=== PATIENT | female | born 1940 | race Caucasian/White ===

== ENCOUNTER 2017-11-15 16:37 | Inpatient (IN) ==
[2017-11-15] MEDS ORDERED: Sod Chloride 0.9% Inj 1,000 ML IV.SIG ONE (18:06)
[2017-11-15] MEDS ORDERED: Morphine Inj 4 MG/ML Vial IV.PUSH ONE ×2 (18:09→21:49)
--- NOTE | 2017-11-15 18:20 | ED ---
HPI General Chief Complaint: Headache Stated Complaint: Dr referred/medical/cancer pt Time Seen by Provider: 11/15/17 18:05 Source: patient and family Mode of arrival: wheelchair Limitations: no limitations History of Present Illness HPI Narrative: 77 yo female here for evaluation of possible cancer pain. Patient reports recent diagnosis of breast cancer in September. Had biopsy and saw Dr Prescott for the first time today. She has bilateral breast cancer. She was given lortab for pain but continues to have pain. Has had bad headaches for 2 weeks on the left side of head as well as pain in chest and body. Per family patient has not been able to sleep well or do anything because of the pain. patient has not had any chemo or radiation at all. No surgeries recently. Per patient and family as Dr Prescott evaluated her today and she was in significant pain she was set here for evaluation of possible metastatsis. She has not had PET scan or other scans yet. Pain is 10/10. Mostly on the head. per family patient has been living on a house without any air conditioning and don't know if this might have something to do with this. No numbness, tingling, weakness. Related Data Home Medications Medication Instructions Recorded Confirmed alprazolam 0.5 mg PO TID PRN 11/15/17 11/15/17 hydrocodone-acetaminophen 1 tab PO Q4-6H PRN 11/15/17 11/15/17 lovastatin 40 mg PO DAILY 11/15/17 11/15/17 pantoprazole 40 mg PO DAILY 11/15/17 11/15/17 triamterene-hydrochlorothiazid 1 tab PO DAILY 11/15/17 11/15/17 Allergies Allergy/AdvReac Type Severity Reaction Status Date / Time Sulfa (Sulfonamide Allergy Intermediate RASH Verified 11/15/17 18:03 Antibiotics) Review of Systems ROS Unobtainable All other systems reviewed negative except as stated in HPI PMFSH History History Provided By: Patient and Family Member Medical History Medical History Anxiety (Acute) Breast cancer (Acute) Hypercholesteremia (Acute) Hypertension (Acute) Ulcer (Acute) Surgical History Surgical History H/O tubal ligation (Acute) History of biopsy (Acute) Hx of cholecystectomy (Acute) Family History Family History Other Family history of diabetes mellitus Social History Social History Substance History: No History of Abuse Smoking Status: Never smoker How Often Do You Have a Drink Containing Alcohol: Never Recent Travel in [facility] within the Last 8 Weeks: No Recent Out of Country Travel within the Last 8 Weeks: No Exam Narrative Exam Narrative: GENERAL: Anorexic but well-appearing otherwise SKIN: Focused skin assessment warm/dry. HEAD: Atraumatic. Normocephalic. EYES: Pupils equal and round 4 mms reactive to light and accommodation. No scleral icterus. No injection or drainage. ENT: No nasal bleeding or discharge. Mucous membranes pink and moist. Tongue is midline. No uvula deviation. NECK: Trachea midline. No JVD. CARDIOVASCULAR: Regular rate and rhythm. No murmur appreciated. RESPIRATORY: No accessory muscle use. Clear to auscultation. Breath sounds equal bilaterally. GASTROINTESTINAL: Abdomen soft, non-tender, nondistended. Hepatic and splenic margins not palpable. MUSCULOSKELETAL: No obvious deformities. No clubbing. No cyanosis. No edema. Full range of motion of the upper and lower extremities bilaterally. 2+ pulses bilaterally. NEUROLOGICAL: Awake and alert. No obvious cranial nerve deficits. Motor grossly within normal limits. Normal speech. PSYCHIATRIC: Appropriate mood and affect; insight and judgment normal. Course Initial Documented Vital Signs Temperature 99.1 F 11/15/17 16:52 Pulse Rate 106 H 11/15/17 16:52 Respiratory Rate 18 11/15/17 16:52 Blood Pressure 150/82 H 11/15/17 16:52 Pulse Oximetry 97 11/15/17 16:52 Last Documented Vital Signs Temperature 99.1 F 11/15/17 16:52 Pulse Rate 92 H 11/16/17 16:02 Respiratory Rate 14 11/16/17 16:02 Blood Pressure 166/72 H 11/16/17 16:02 Pulse Oximetry 96 11/16/17 16:02 Medical Decision Making ALEIDA Attestation ALEIDA supervised visit: Yes MDM Narrative Medical decision making narrative: 77-year-old female that presents to the ED for evaluation of possible cancer pain. Patient was properly examined and was found to have signs and symptoms consistent appears to be a small metastasis of recent breast cancer diagnosis. Labs and imaging were ordered. Patient will start IV pain medications and antiemetics. IV fluids given. Labs and imaging showed subdural hematoma, calcification on the brest. Otherwise unremarcable examination. My attending Dr Law was made aware of findings and agrees with plan. Patient's pain is better. Case discussed with Dr Veliz who wants patient admitted to neurosurgery and consult to him. Dr Multani agrees to admission to his service. Family and patient made aware of findings and agree with plan. Differential Diagnosis Differential Diagnosis: Metastasis versus cancer versus headache versus cephalgia versus cancer pain versus dehydration Medical Records Medical records reviewed: Yes I reviewed the patient's medical records. Lab Data Lab results reviewed: Yes I reviewed the patient's lab results. Lab results narrative: troponin and CKMB WNL lactic acid WNL Result diagrams: 11/16/17 03:57 11/16/17 03:57 Lab Results 11/15/17 11/15/17 11/15/17 Range/Units 18:30 18:35 18:35 WBC 12.5 H (4.0-11.0) th/mm3 RBC 5.03 (4.00-5.30) mil/mm3 Hgb 14.8 (11.6-15.3) gm/dL Hct 44.0 (35.0-46.0) % MCV 87.5 (80.0-100.0) fL MCH 29.5 (27.0-34.0) pg MCHC 33.7 (32.0-36.0) % RDW 13.0 (11.6-17.2) % Plt Count 229 (150-450) th/mm3 MPV 8.4 (7.0-11.0) fL Neut % (Auto) 70.0 (16.0-70.0) % Lymph % (Auto) 19.1 (9.0-44.0) % Norman % (Auto) 9.6 H (0.0-8.0) % Eos % (Auto) 1.0 (0.0-4.0) % Baso % (Auto) 0.3 (0.0-2.0) % Neut # (Auto) 8.8 H (1.8-7.7) th/mm3 Lymph # (Auto) 2.4 (1.0-4.8) th/mm3 Norman # (Auto) 1.2 H (0.0-0.9) th/mm3 Eos # (Auto) 0.1 (0.0-0.4) th/mm3 Baso # (Auto) 0.0 (0.0-0.2) th/mm3 WBC Differential . Differential Comment Auto diff final PT 10.6 (9.8-11.6) sec INR 1.0 Ratio APTT 27.2 (24.3-30.1) sec Sodium (136-145) meq/L Potassium (3.5-5.1) meq/L Chloride (98-107) meq/L Carbon Dioxide (21.0-32.0) meq/L Anion Gap (5-15) meq/L BUN (7-18) mg/dL Creatinine (0.50-1.00) mg/dL Estimated GFR (>89) mL/min Random Glucose (74-106) mg/dL Lactic Acid 1.3 (0.4-2.0) mmol/L Calcium (8.5-10.1) mg/dL Total Bilirubin (0.2-1.0) mg/dL AST (15-37) U/L ALT (10-53) U/L Alkaline Phosphatase (45-117) U/L Total Protein (6.4-8.2) g/dL Albumin (3.4-5.0) g/dL Lipase (73-393) U/L Urine Color (Yellw/Straw) Urine Clarity (Clear) Urine pH (5.0-8.5) Ur Specific Bishop (1.002-1.035) Urine Protein (Neg-Trace) mg/dL Urine Glucose (UA) (Negative) mg/dL Urine Ketones (Negative) mg/dL Urine Occult Blood (Negative) Urine Nitrate (Negative) Urine Bilirubin (Negative) Urine Urobilinogen (Less than 2) mg/dL Ur Leukocyte Esterase (Negative) Urine RBC (0-3) /hpf Urine WBC (0-5) /hpf Ur Squamous Epith Cells (0-5) /hpf Micro UA Comment Urine Culture Comments 11/15/17 11/15/17 11/16/17 Range/Units 18:35 18:52 03:57 WBC 10.6 (4.0-11.0) th/mm3 RBC 4.39 (4.00-5.30) mil/mm3 Hgb 13.2 (11.6-15.3) gm/dL Hct 38.3 (35.0-46.0) % MCV 87.3 (80.0-100.0) fL MCH 30.1 (27.0-34.0) pg MCHC 34.5 (32.0-36.0) % RDW 13.0 (11.6-17.2) % Plt Count 198 (150-450) th/mm3 MPV 8.2 (7.0-11.0) fL Neut % (Auto) 63.3 (16.0-70.0) % Lymph % (Auto) 24.4 (9.0-44.0) % Norman % (Auto) 10.4 H (0.0-8.0) % Eos % (Auto) 1.4 (0.0-4.0) % Baso % (Auto) 0.5 (0.0-2.0) % Neut # (Auto) 6.7 (1.8-7.7) th/mm3 Lymph # (Auto) 2.6 (1.0-4.8) th/mm3 Norman # (Auto) 1.1 H (0.0-0.9) th/mm3 Eos # (Auto) 0.1 (0.0-0.4) th/mm3 Baso # (Auto) 0.1 (0.0-0.2) th/mm3 WBC Differential . Differential Comment Auto diff final PT (9.8-11.6) sec INR Ratio APTT (24.3-30.1) sec Sodium 133 L (136-145) meq/L Potassium 3.4 L (3.5-5.1) meq/L Chloride 93 L (98-107) meq/L Carbon Dioxide 28.0 (21.0-32.0) meq/L Anion Gap 12 (5-15) meq/L BUN 8 (7-18) mg/dL Creatinine 0.84 (0.50-1.00) mg/dL Estimated GFR 66 L (>89) mL/min Random Glucose 112 H (74-106) mg/dL Lactic Acid (0.4-2.0) mmol/L Calcium 9.9 (8.5-10.1) mg/dL Total Bilirubin 1.1 H (0.2-1.0) mg/dL AST 17 (15-37) U/L ALT 22 (10-53) U/L Alkaline Phosphatase 104 (45-117) U/L Total Protein 7.8 (6.4-8.2) g/dL Albumin 3.7 (3.4-5.0) g/dL Lipase 51 L (73-393) U/L Urine Color Straw (Yellw/Straw) Urine Clarity Clear (Clear) Urine pH 8.0 (5.0-8.5) Ur Specific Bishop 1.003 (1.002-1.035) Urine Protein Negative (Neg-Trace) mg/dL Urine Glucose (UA) Negative (Negative) mg/dL Urine Ketones Negative (Negative) mg/dL Urine Occult Blood Small H (Negative) Urine Nitrate Negative (Negative) Urine Bilirubin Negative (Negative) Urine Urobilinogen Less than 2 (Less than 2) mg/dL Ur Leukocyte Esterase Trace H (Negative) Urine RBC 1 (0-3) /hpf Urine WBC 3 (0-5) /hpf Ur Squamous Epith Cells <1 (0-5) /hpf Micro UA Comment Culture not ind Urine Culture Comments Culture not ind 11/16/17 11/16/17 Range/Units 03:57 03:57 WBC (4.0-11.0) th/mm3 RBC (4.00-5.30) mil/mm3 Hgb (11.6-15.3) gm/dL Hct (35.0-46.0) % MCV (80.0-100.0) fL MCH (27.0-34.0) pg MCHC (32.0-36.0) % RDW (11.6-17.2) % Plt Count (150-450) th/mm3 MPV (7.0-11.0) fL Neut % (Auto) (16.0-70.0) % Lymph % (Auto) (9.0-44.0) % Norman % (Auto) (0.0-8.0) % Eos % (Auto) (0.0-4.0) % Baso % (Auto) (0.0-2.0) % Neut # (Auto) (1.8-7.7) th/mm3 Lymph # (Auto) (1.0-4.8) th/mm3 Norman # (Auto) (0.0-0.9) th/mm3 Eos # (Auto) (0.0-0.4) th/mm3 Baso # (Auto) (0.0-0.2) th/mm3 WBC Differential Differential Comment PT 10.7 (9.8-11.6) sec INR 1.1 Ratio APTT 27.4 (24.3-30.1) sec Sodium 135 L (136-145) meq/L Potassium 3.5 (3.5-5.1) meq/L Chloride 99 (98-107) meq/L Carbon Dioxide 26.5 (21.0-32.0) meq/L Anion Gap 10 (5-15) meq/L BUN 8 (7-18) mg/dL Creatinine 0.71 (0.50-1.00) mg/dL Estimated GFR 80 L (>89) mL/min Random Glucose 98 (74-106) mg/dL Lactic Acid (0.4-2.0) mmol/L Calcium 8.3 L D (8.5-10.1) mg/dL Total Bilirubin 0.9 (0.2-1.0) mg/dL AST 16 (15-37) U/L ALT 22 (10-53) U/L Alkaline Phosphatase 89 (45-117) U/L Total Protein 6.6 D (6.4-8.2) g/dL Albumin 3.3 L (3.4-5.0) g/dL Lipase (73-393) U/L Urine Color (Yellw/Straw) Urine Clarity (Clear) Urine pH (5.0-8.5) Ur Specific Bishop (1.002-1.035) Urine Protein (Neg-Trace) mg/dL Urine Glucose (UA) (Negative) mg/dL Urine Ketones (Negative) mg/dL Urine Occult Blood (Negative) Urine Nitrate (Negative) Urine Bilirubin (Negative) Urine Urobilinogen (Less than 2) mg/dL Ur Leukocyte Esterase (Negative) Urine RBC (0-3) /hpf Urine WBC (0-5) /hpf Ur Squamous Epith Cells (0-5) /hpf Micro UA Comment Urine Culture Comments Imaging Data Attestation: I personally reviewed and interpreted this imaging study as follows : Radiologist's impression: Abdomen/Pelvis CT 11/15/17 18:06 CONCLUSION: 1. No acute abnormality is identified within the abdomen or pelvis. 2. Nonacute findings include small hiatal hernia, sigmoid diverticulosis, hepatic steatosis, and severe atherosclerotic disease. Chest CT 11/15/17 18:06 CONCLUSION: 1. No acute finding is identified to explain the patient's chest pain. There is moderate atherosclerotic disease of the aorta. 2. There is an asymmetric nodular area in the outer right breast measuring approximately 11 mm. Patient has not had a recent mammogram at one of our facilities according to our records. Suggest further evaluation with outpatient diagnostic mammogram and ultrasound for further evaluation. 3. Please refer to abdomen and pelvis CT report for description of the supradiaphragmatic findings. Head CT 11/15/17 18:06 CONCLUSION: 1. There is a small acute left frontal subdural hematoma measuring 4 mm in thickness with acute blood products along the anterior falx cerebri. No midline shift or herniation is present. No skull fracture is visualized. 2. The remaining brain findings are chronic including mild generalized atrophy and mild periventricular white matter low-attenuation. Cervical Spine CT 11/15/17 18:12 CONCLUSION: 1. Multilevel degenerative disc disease without an acute cervical spine abnormality identified. 2. There is moderate left neural foraminal stenosis at C3-C4. Head CT 11/16/17 05:00 CONCLUSION: 1. Left-sided subdural hemorrhage is unchanged. 2. No midline shift or mass effect. ECG Data EKG Prior to Arrival: No Discharge Plan Discharge Disposition Patient Disposition: 30 Still Patient Discharge Condition Condition: Good Discharge Order Discharge Orders: Discharge Order (Routine); Ordered 11/16/17 Ordered By: Ilir Castle Discharge Details Anticipated Discharge Date: 11/16/17 Diagnosis: Acute subdural hematoma, Breast cancer Physicians Team ED Provider: Miguel Law ED Midlevel Provider: Ubaldo Abdi Primary Care Provider: Onofre Gimenez Attending Provider: Naren Multani Other Providers: Jeremias Veliz ; [employer] Status ED Status: Left Department Discharge Information Discharge Date/Time: 11/16/17 16:00
[2017-11-15 19:08] LABS: Baso % (Auto) 0.3 % (0.0-2.0); Eos # (Auto) 0.1 th/mm3 (0.0-0.4); Hemoglobin 14.8 gm/dL (11.6-15.3); Lymph # (Auto) 2.4 th/mm3 (1.0-4.8); Lymph % (Auto) 19.1 % (9.0-44.0); Mean Corpuscular HGB Conc 33.7 % (32.0-36.0); Mean Corpuscular Hemoglobin 29.5 pg (27.0-34.0); Mean Corpuscular Volume 87.5 fL (80.0-100.0); Mean Platelet Volume 8.4 fL (7.0-11.0); Mono # (Auto) 1.2 th/mm3 (0.0-0.9); Mono % (Auto) 9.6 % (0.0-8.0); Neut # (Auto) 8.8 th/mm3 (1.8-7.7); Platelet Count 229 th/mm3 (150-450); Red Blood Count 5.03 mil/mm3 (4.00-5.30); White Blood Count 12.5 th/mm3 (4.0-11.0)
[2017-11-15 19:13] LABS: Alanine Aminotransferase 22 U/L (10-53); Albumin 3.7 g/dL (3.4-5.0); Anion Gap 12 meq/L (5-15); Aspartate Aminotransferase 17 U/L (15-37); Blood Urea Nitrogen 8 mg/dL (7-18); Calcium 9.9 mg/dL (8.5-10.1); Chloride 93 meq/L (98-107); Glomerular Filtration Rate 66 mL/min (>89); Glucose,Random 112 mg/dL (74-106); Lipase 51 U/L (73-393); Potassium 3.4 meq/L (3.5-5.1); Sodium 133 meq/L (136-145)
[2017-11-15 19:16] LABS: Alkaline Phosphatase 104 U/L (45-117); Total Protein 7.8 g/dL (6.4-8.2)
[2017-11-15 19:27] LABS: Activated Partial Thrombo Time 27.2 sec (24.3-30.1); Prothrombin Time 10.6 sec (9.8-11.6)
[2017-11-15 19:33] LABS: Bilirubin,Urine Negative (Negative); Clarity,Urine Clear (Clear); Color,Urine Straw (Yellw/Straw); Glucose,Urine (UA) Negative (Negative); Leukocyte Esterase,Urine Trace (Negative); Nitrite,Urine Negative (Negative); Specific Gravity,Urine 1.003 (1.002-1.035); Squamous Epithelial Cell,Urine <1 /hpf (0-5)
--- NOTE | 2017-11-15 19:52 | CT ---
EXAM DATE: 11/15/2017 7:40 PM EDT AGE/SEX: 77 years / Female INDICATIONS: Cephalgia. CLINICAL DATA: This is the patient's initial encounter. Patient reports that signs and symptoms have been present for 1 day and indicates a pain score of 10/10. MEDICAL/SURGICAL HISTORY: Carcinoma, breast. Hypertension. None. RADIATION DOSE: 56.35 CTDI (mGy) COMPARISON: [facility], CT BRAIN W/O CONTRAST, 04/28/2015. . TECHNIQUE: CT of the head without contrast. Using automated exposure control and adjustment of the mA and/or kV according to patient size, radiation dose was kept as low as reasonably achievable to ob tain optimal diagnostic quality images. DICOM format image data is available electronically for revi ew and comparison. FINDINGS: Cerebrum: There is mild generalized atrophy and ventricles are normal given the degree of atrophy. M ild periventricular white matter change is present. There is extra-axial high density collection in the left frontal region measuring up to 4 mm in maximal thickness and along the anterior falx cerebri measuring approximately 4 mm. There is no midline shift or herniation. No mass lesion or signs of ac [place] infarct are identified. Posterior Fossa: The cerebellum and brainstem demonstrate no acute abnormality. The 4th ventricle is midline. The cerebellopontine angle is within normal limits. Extracranial: The visualized sinuses are clear. Skull: The calvaria is intact. No skull fracture. CONCLUSION: 1. There is a small acute left frontal subdural hematoma measuring 4 mm in thickness with acute bloo d products along the anterior falx cerebri. No midline shift or herniation is present. No skull fract ure is visualized. 2. The remaining brain findings are chronic including mild generalized atrophy and mild periventricu lar white matter low-attenuation. Electronically signed by: Isidoro Anderson MD 11/15/2017 7:50 PM EDT
--- NOTE | 2017-11-15 19:59 | CT ---
EXAM DATE: 11/15/2017 7:42 PM EDT AGE/SEX: 77 years / Female INDICATIONS: Cervalgia. CLINICAL DATA: This is the patient's initial encounter. Patient reports that signs and symptoms have been present for 1 day and indicates a pain score of 8/10. MEDICAL/SURGICAL HISTORY: Carcinoma, breast. Hypertension. None. RADIATION DOSE: 16.35 CTDI (mGy) COMPARISON: [facility], MRI CERVICAL SPINE W/O CONTRAST, 02/15/2011. . TECHNIQUE: Contiguous axial images were obtained using helical multirow detector technique. The vol umetric data was post-processed with multiplanar reconstruction in oblique axial, sagittal, and coron al planes. Using automated exposure control and adjustment of the mA and/or kV according to patient s ize, radiation dose was kept as low as reasonably achievable to obtain optimal diagnostic quality lyly ges. DICOM format image data is available electronically for review and comparison. FINDINGS: Vertebrae: No fracture is identified. Vertebral body height is maintained. Alignment: No anterolisthesis or retrolisthesis. The craniocervical junction and C1-C2 level demonstrate no significant abnormality. C2-C3: There is mild left facet arthrosis. No significant canal stenosis or neural foraminal narrowi ng is visualized. C3-C4: There is decreased disc height with endplate osteophytes anteriorly and posterior disc osteop hyte complex with small left uncovertebral osteophyte. Left facet arthrosis is present. There is no s chemo canal stenosis. There is moderate left neural foraminal narrowing. This appears mildly increase d from the prior study. C4-C5: Decreased disc height with endplate osteophytes anteriorly. There is a posterior disc osteoph yte complex centrally which may mildly narrow the spinal canal. No significant neural foraminal steno sis is present. C5-C6: Decreased disc height with endplate osteophytes anteriorly and diffuse posterior disc osteoph yte complex. No spinal canal stenosis is present. There is mild neural foraminal narrowing bilaterall y. C6-C7: Decreased disc height with endplate osteophytes anteriorly and posterior disc osteophyte comp cass. No spinal canal stenosis or definite neural foraminal narrowing is seen. C7-T1: There is left facet arthrosis. No disc herniation, canal stenosis, or neural foraminal narrow ing is identified. Other: The visualized surrounding structures demonstrate no acute abnormality. CONCLUSION: 1. Multilevel degenerative disc disease without an acute cervical spine abnormality identified. 2. There is moderate left neural foraminal stenosis at C3-C4. Electronically signed by: Isidoro Anderson MD 11/15/2017 7:58 PM EDT
--- NOTE | 2017-11-15 20:05 | CT ---
EXAM DATE: 11/15/2017 7:47 PM EDT AGE/SEX: 77 years / Female INDICATIONS: Chest pain. CLINICAL DATA: This is the patient's initial encounter. Patient reports that signs and symptoms have been present for 1 day and indicates a pain score of 7/10. MEDICAL/SURGICAL HISTORY: Carcinoma, breast. Hypertension. Ulcers. Cholecystectomy. Tubal ligati on. RADIATION DOSE: 5.37 CTDI (mGy) ; Combined studies COMPARISON: No prior exams available for comparison. TECHNIQUE: Multiple contiguous axial images were obtained through the chest during bolus infusion of 95 ml Omnipaque 350 (iohexol) nonionic water-soluble contrast as a cumulative dose for multiple exa ms. Images were obtained in suspended respiration using multiple row detector helical technique. U sing automated exposure control and adjustment of the mA and/or kV according to patient size, radiati on dose was kept as low as reasonably achievable to obtain optimal diagnostic quality images. DICOM format image data is available electronically for review and comparison. FINDINGS: Lungs: No consolidation or pneumothorax. No concerning pulmonary nodule is identified. There is a c alcified granuloma in the left lower lobe. Dependent atelectasis is present bilaterally. Mediastinum: The heart and great vessels demonstrate no acute abnormality. No lymphadenopathy is id entified. There are nonenlarged calcified left hilar lymph nodes. Mild to moderate atherosclerotic di sease is present within the aorta. Pleurae: No pleural effusion or pleural thickening. Axillae: No lymphadenopathy. Musculoskeletal: The bones and soft tissues demonstrate no acute abnormality. There are degenerativ e changes of the thoracic spine. Other: There is an asymmetric nodular area in the outer right breast measuring approximately 11 mm. Please refer to abdomen and pelvis CT report for description of the subdiaphragmatic findings. CONCLUSION: 1. No acute finding is identified to explain the patient's chest pain. There is moderate atheroscler otic disease of the aorta. 2. There is an asymmetric nodular area in the outer right breast measuring approximately 11 mm. Sharri ent has not had a recent mammogram at one of our facilities according to our records. Suggest further evaluation with outpatient diagnostic mammogram and ultrasound for further evaluation. 3. Please refer to abdomen and pelvis CT report for description of the supradiaphragmatic findings. Electronically signed by: Isidoro Anderson MD 11/15/2017 8:03 PM EDT
--- NOTE | 2017-11-15 20:09 | CT ---
EXAM DATE: 11/15/2017 7:47 PM EDT AGE/SEX: 77 years / Female INDICATIONS: Abdominal pain. CLINICAL DATA: This is the patient's initial encounter. Patient reports that signs and symptoms have been present for 1 day and indicates a pain score of 5/10. MEDICAL/SURGICAL HISTORY: Carcinoma, breast. Hypertension. Ulcers. Cholecystectomy. Tubal li gation. ORAL CONTRAST: No oral contrast ingested. RADIATION DOSE: 5.37 CTDI (mGy) ; Combined studies COMPARISON: No prior exams available for comparison. TECHNIQUE: Multiple contiguous axial images were obtained through the abdomen and pelvis following b olus infusion of 95 ml Omnipaque 350 (iohexol) nonionic water-soluble contrast as a cumulative dose for multiple exams. No oral contrast ingested. Using automated exposure control and adjustment of t he mA and/or kV according to patient size, radiation dose was kept as low as reasonably achievable to obtain optimal diagnostic quality images. DICOM format image data is available electronically for r eview and comparison. FINDINGS: Lower chest: Please refer to chest CT report for description of the supradiaphragmatic findings. Hepatobiliary: Liver density is decreased. No focal lesion is seen. Gallbladder is absent with clips in the gallbladder fossa. There is no bile duct dilatation. Kidneys: No hydronephrosis, stone, or mass. Adrenal Glands: Within normal limits. Spleen: Within normal limits. Pancreas: Within normal limits. Vascular: The aorta is nonaneurysmal. There is severe atherosclerotic disease. Bowel/Mesentery: A small hiatal hernia is present. Small bowel demonstrates no abnormality. Terminal ileum is normal. There is sigmoid diverticulosis. No inflammatory changes are present. There is no fr ee air or free fluid. Abdominal Wall: No hernia is visualized. Retroperitoneum: No lymphadenopathy. Bladder: No wall thickening or mass. Reproductive: Within normal limits. Inguinal: No lymphadenopathy or hernia. Musculoskeletal: No acute osseous abnormality is identified. There are degenerative changes of the kerrie mbar spine. CONCLUSION: 1. No acute abnormality is identified within the abdomen or pelvis. 2. Nonacute findings include small hiatal hernia, sigmoid diverticulosis, hepatic steatosis, and sev ere atherosclerotic disease. Electronically signed by: Isidoro Anderson MD 11/15/2017 8:07 PM EDT
--- NOTE | 2017-11-15 20:44 | P.CONNS ---
History of Present Illness Service: neurosurgery Consult date: 11/15/17 Requesting Physician: Naren Multani Reason for Consult: TBI, subdural hematoma Primary Care Provider: Onofre Gimenez MD Family Provider: Onofre Gimenez MD History of Present Illness: This is a 77 year old female with history of breast cancer who suffered a fall , when she tripped over a toy and hit her head. No LOC. No seizure activity reported. No tongue biting. No incontinence of stool or urine. She has been having headache since then. today presented to ER with headache and found to have small subdural hematoma without midline shift. denies N/V. denies anticoagulant use. ROS otherwise negative except for headache. no dizziness, syncope, light-headedness, weakness, numbness, loss of bowel or bladder control. Neurosurgical consultation was requested Review of Systems Constitutional: Denies anorexia, Denies body ache(s), Denies chills, Denies daytime sleepiness, Denies excessive sweating, Denies fatigue, Denies fever(s), Denies headache(s), Denies increased appetite, Denies lack of energy, Denies malaise, Denies night sweats, Denies weakness, Denies weight gain, Denies weight loss, Denies other Eyes: Denies blind spots, Denies blurry vision, Denies bulging eyes, Denies change in vision, Denies double vision, Denies discharge, Denies dry eyes, Denies floaters, Denies irritation, Denies itchy eyes, Denies loss of vision, Denies pain, Denies requires corrective lenses, Denies sensitivity to light, Denies other Ears, Nose, Mouth, and Throat: Denies abnormal hearing, Denies bleeding gums, Denies bad breath, Denies change in voice, Denies dental pain, Denies difficulty swallowing, Denies dizziness, Denies dry mouth, Denies ear discharge , Denies ear pain, Denies facial pain, Denies headache(s), Denies hearing loss, Denies hoarseness, Denies lip swelling, Denies nosebleed, Denies mouth lesions, Denies mouth pain, Denies nasal congestion, Denies nasal discharge, Denies nasal obstruction, Denies nasal trauma, Denies neck lump, Denies neck pain, Denies nose pain, Denies pain with swallowing, Denies poor balance, Denies post nasal drip, Denies ringing in the ears, Denies sinus pain, Denies sinus pressure , Denies sore throat, Denies throat swelling, Denies tongue swelling, Denies other Cardiovascular: Denies chest pain, Denies chest pain at rest, Denies chest pain with activity, Denies excessive sweating, Denies fainting, Denies fast heart rate, Denies foot swelling, Denies generalized swelling, Denies irregular heart rhythm, Denies leg pain with activity, Denies leg sores, Denies leg swelling, Denies lightheadedness, Denies radiating jaw, neck or arm pain, Denies rapid, pounding, or irregular heartbeat, Denies shortness of breath, Denies shortness of breath with activity, Denies shortness of breath when lying down, Denies shortness of breath causing sudden awakening, Denies slow heart rate, Denies other Respiratory: Denies change in phlegm color, Denies chest congestion, Denies cough, Denies coughing up blood, Denies excessive phlegm production, Denies pain on inspiration, Denies pain with cough, Denies shortness of breath, Denies shortness of breath with activity, Denies snoring, Denies stridor, Denies wheezing, Denies other Gastrointestinal: Denies abdominal pain, Denies belching, Denies black, tarry stools, Denies bloating, Denies bright, red blood in stools, Denies change in bowel habits, Denies constant urge to pass stool, Denies change in stools, Denies coffee ground vomit, Denies constipation, Denies cramping, Denies difficulty swallowing, Denies excessive passing of gas, Denies feeling full early, Denies heartburn, Denies incontinent of stools, Denies loose stools, Denies nausea, Denies pain with swallowing, Denies vomiting, Denies vomiting blood, Denies other Genitourinary: Denies abnormal periods, Denies abnormal vaginal bleeding, Denies absent period, Denies bleeding between periods, Denies blood in urine, Denies difficulty starting urination, Denies difficulty urinating, Denies dribbling after urination, Denies frequent nighttime urination, Denies genital itching, Denies genital lesions, Denies heavy periods, Denies hot flashes, Denies light periods, Denies nipple discharge, Denies painful intercourse, Denies painful periods, Denies painful urination, Denies pelvic pain, Denies prolapse symptoms, Denies sexual problems, Denies side pain, Denies urinary incontinence, Denies urinary urgency, Denies vaginal discharge, Denies vaginal dryness, Denies vaginal odor, Denies vaginal itching, Denies other Musculoskeletal: Denies abnormal walking, Denies back pain, Denies body aches, Denies decreased muscle mass, Denies deformity, Denies joint pain, Denies joint swelling, Denies limited joint movement, Denies loss of height, Denies muscle cramps, Denies muscle weakness, Denies neck pain, Denies numbness, Denies radiating pain into limb, Denies stiffness, Denies tingling, Denies other Skin/Breast: Denies acne, Denies bleeding lesions, Denies boil, Denies breast swelling, Denies breast skin changes, Denies breast pain, Denies breast lump, Denies change in breast shape, Denies change in hair, Denies change in skin color, Denies changing lesions, Denies dry skin, Denies excessive hair growth, Denies hair loss, Denies itching, Denies lesions, Denies nail changes, Denies new lesions, Denies nipple discharge, Denies non-healing lesions, Denies redness , Denies sensitivity to light, Denies rash, Denies skin pain, Denies skin ulcer , Denies sores, Denies stretch villar, Denies unusual bruising, Denies wounds, Denies yellowing of the skin, Denies other Neurologic: Denies abnormal hearing, Denies abnormal movements, Denies abnormal speech, Denies abnormal walking, Denies behavioral changes, Denies burning sensations, Denies confusion, Denies dizziness, Denies fainting, Denies frequent falls, Denies headache(s), Denies lack of coordination, Denies localized weakness, Denies loss of vision, Denies memory loss, Denies numbness, Denies other visual disturbances, Denies radiating pain, Denies restless legs, Denies convulsions, Denies seizure-like activity, Denies sensory deficit, Denies tingling, Denies tingling/numbness/burning sensations, Denies tremor(s), Denies unsteadiness, Denies weakness, Denies other Psychiatric: Denies abnormal sleep pattern, Denies anxiety, Denies behavioral changes, Denies change in appetite, Denies change in sex drive, Denies confusion , Denies depression, Denies difficulty concentrating, Denies hearing things others do not hear, Denies hopelessness, Denies irritability, Denies lack of enjoyment, Denies memory loss, Denies mood swings, Denies panic attacks, Denies paranoia, Denies seeing things others do not see, Denies sensing things others do not sense, Denies tactile hallucinations, Denies thoughts of hurting/killing others, Denies thoughts of hurting/killing yourself, Denies other Endocrine: Denies cold intolerance, Denies excessive sweating, Denies flushing, Denies heat intolerance, Denies increased hunger, Denies increased thirst, Denies increased urination, Denies rapid, pounding, or irregular heartbeat, Denies other Hematologic/Lymphatic: Denies easy bleeding, Denies easy bruising, Denies enlarged lymph nodes, Denies other Allergic/Immunologic: Denies GI upset with certain foods, Denies hives, Denies itchy eyes, Denies lip swelling, Denies seasonal runny nose, Denies throat swelling, Denies tongue swelling, Denies wheezing, Denies other PMFSH - History History Provided By: Patient, Family Member - Medical History Medical History: Medical History (Last Reviewed 11/17/17 @ 16:43 by Jeremias Veliz MD) Anxiety Breast cancer Hypercholesteremia Hypertension Ulcer - Surgical History Surgical History: Surgical History (Last Reviewed 11/17/17 @ 16:44 by Jeremias Veliz MD) History of biopsy H/O tubal ligation Hx of cholecystectomy - Family History Family History: Family History (Last Updated 11/17/17 @ 16:45 by Jeremias Veliz MD) Other Family history of diabetes mellitus - Tobacco History Smoking Status: Never smoker - Alcohol History How Often Do You Have a Drink Containing Alcohol: Never - Substance Use History Substance History: No History of Abuse - Travel History Recent Travel in the [facility] [[email or web address] Within the Last 8 Weeks: No Recent Travel Out of the Country Within the Last 8 Weeks: No - Immunization History Tetanus Immunization: Unsure Hx Influenza Vaccine This Season: Yes Medications and Allergies Allergies Allergy/AdvReac Type Severity Reaction Status Date / Time Sulfa (Sulfonamide Allergy Intermediate RASH Verified 11/15/17 18:03 Antibiotics) Home Medications Medication Instructions Recorded Confirmed Type alprazolam 0.5 mg PO TID PRN 11/15/17 11/15/17 History hydrocodone-acetaminophen 1 tab PO Q4-6H PRN 11/15/17 11/15/17 History lovastatin 40 mg PO DAILY 11/15/17 11/15/17 History pantoprazole 40 mg PO DAILY 11/15/17 11/15/17 History triamterene-hydrochlorothiazid 1 tab PO DAILY 11/15/17 11/15/17 History Exam Vital signs: Vital Signs 11/15/17 16:52 11/15/17 18:03 11/15/17 18:11 Temperature 99.1 F Pulse Rate 106 H 99 H 100 H Respiratory Rate 18 Blood Pressure 150/82 H 164/80 H 164/80 H Pulse Oximetry 97 98 95 11/15/17 18:52 Temperature Pulse Rate Respiratory Rate 16 Blood Pressure Pulse Oximetry Intake & Output 11/15/17 11/15/17 11/16/17 06:59 18:59 06:59 Weight 68.039 kg Narrative: The patient is alert, awake and oriented to time, place and person. Speech is fluent. Cranial nerve examination demonstrates the pupils to be equal, round, and reactive to light. Extra-ocular movements are intact with normal convergence. Facial motor and sensory function are normal and symmetrical. Gross hearing is intact, bilaterally, to finger rub. The uvula is midline and elevates symmetrically with the soft palate. Sternocleidomastoid and deltoid muscles have normal and symmetrical strength. Other cranial nerves are intact. Neck is soft and supple. Cervical spine has a full range of motion in anterior flexion, extension, lateral bending, and rotation without pain. There is no tenderness to palpation to the spinous processes or paraspinal muscles.. Muscle testing reveals normal bulk and tone overall without rigidity, spasticity , fasciculations, or atrophy. Muscle strength is 5/5 in all muscle groups of both upper extremities including deltoid, biceps, triceps, brachioradialis, wrist extension and maintenance mechanic technician. In the lower extremities, strength is 5/5 in both iliopsoas, quadriceps, hamstrings, plantar flexion, dorsiflexion, and extensor hallicus longus. Sensory examination is intact to light touch and sharp/dull discrimination in both the upper and lower extremities, symmetrically. Deep tendon reflexes are 2+ and symmetrical in the biceps, triceps, and brachioradialis, bilaterally, in the upper extremities. In the lower extremities , the patellar and Achilles are 2+, bilaterally. There is a bilateral plantar flexion response. Hoffmanns sign is negative. There is no clonus or other abnormal reflexes noted. Cerebellar examination is intact to [id number] test, rapid rhythmic alternating motion. No dysmetria, dysdiadochokinesia, truncal ataxia, or tremor noted. Lungs: clear Heart. Regular rhythm and rate Skin: warm and dry Results - Laboratory Findings CBC and BMP: 11/16/17 03:57 11/16/17 03:57 Abnormal lab findings: Abnormal Labs 11/15/17 11/15/17 11/15/17 18:35 18:35 18:52 WBC 12.5 H [place] % (Auto) 9.6 H Neut # (Auto) 8.8 H [place] # (Auto) 1.2 H Sodium 133 L Potassium 3.4 L Chloride 93 L Estimated GFR 66 L Random Glucose 112 H Total Bilirubin 1.1 H Lipase 51 L Urine Occult Blood Small H Ur Leukocyte Esterase Trace H Assessment and Plan - Plan Assessment: 77yF with traumatic intracranial hemorrhage without midline shift I reviewed her clinical and radiological studies including Abdomen/Pelvis CT 11/15/17 18:06 CONCLUSION: 1. No acute abnormality is identified within the abdomen or pelvis. 2. Nonacute findings include small hiatal hernia, sigmoid diverticulosis, hepatic steatosis, and severe atherosclerotic disease. Chest CT 11/15/17 18:06 CONCLUSION: 1. No acute finding is identified to explain the patient's chest pain. There is moderate atherosclerotic disease of the aorta. 2. There is an asymmetric nodular area in the outer right breast measuring approximately 11 mm. Patient has not had a recent mammogram at one of our facilities according to our records. Suggest further evaluation with outpatient diagnostic mammogram and ultrasound for further evaluation. 3. Please refer to abdomen and pelvis CT report for description of the supradiaphragmatic findings. Head CT 11/15/17 18:06 CONCLUSION: 1. There is a small acute left frontal subdural hematoma measuring 4 mm in thickness with acute blood products along the anterior falx cerebri. No midline shift or herniation is present. No skull fracture is visualized. 2. The remaining brain findings are chronic including mild generalized atrophy and mild periventricular white matter low-attenuation. Cervical Spine CT 11/15/17 18:12 CONCLUSION: 1. Multilevel degenerative disc disease without an acute cervical spine abnormality identified. 2. There is moderate left neural foraminal stenosis at C3-C4. Neuro. neuro checks in a serial fashion. Follow up Ct brain in [facility] Pulmonary. aggressive pulmonary toilette, nasotracheal suction, and breathing treatments with nebulizers. Daily PT and OT Renal. Continue to monitor closely urine output, BUN and creatinine Endocrine. Continue to Monitor serial Acu checks and SSI as needed in detail ID continue to monitor for signs of infection Continue Protonix for stress ulcer prophylaxis Continue Chacho hose and SCD's for DVT prophylaxis Further recommendations will be provided depending on the patient's clinical evaluation and follow up studies. Caprini VTE Risk Assessment Caprini VTE Risk Assessment: Moderate/High Risk (score >= 2) VTE Pharmacological Exception Reason: Intracranial lesions Caprini Risk Assessment Model: Point Value = 1 Point Value = 2 Point Value = 3 Point Value = 5 Age 41-60 Minor surgery BMI > 25 kg/m2 Swollen legs Varicose veins or History of unexplained or recurrent spontaneous Oral contraceptives or hormone replacement Sepsis (< 1 month) Serious lung disease, including pneumonia (< 1 month) Abnormal pulmonary function Acute myocardial infarction Congestive heart failure (< 1 month) History of inflammatory bowel disease Medical patient at bed rest Age 61-74 Arthroscopic surgery Major open surgery (> 45 min) Laparoscopic surgery (> 45 min) Malignancy Confined to bed (> 72 hours) Immobilizing plaster cast Central venous access Age >= 75 History of VTE Family history of VTE Factor V Leiden Prothrombin [id number] Lupus anticoagulant Anticardiolipin antibodies Elevated serum homocysteine Heparin-induced thrombocytopenia Other congenital or acquired thrombophilia Stroke (< 1 month) Elective arthroplasty Hip, pelvis, or leg fracture Acute spinal cord injury (< 1 month) Prophylaxis Regimen: Total Risk Factor Score Risk Level Prophylaxis Regimen 0-1 Low Early ambulation 2 Moderate Order ONE of the following: *Sequential Compression Device (SCD) *Heparin 5000 units SQ BID 3-4 Higher Order ONE of the following medications: *Heparin 5000 units SQ TID *Enoxaparin/Lovenox 40 mg SQ daily (WT < 150 kg, CrCl > 30 mL/min) *Enoxaparin/Lovenox 30 mg SQ daily (WT < 150 kg, CrCl > 10-29 mL/min) *Enoxaparin/Lovenox 30 mg SQ BID (WT < 150 kg, CrCl > 30 mL/min) AND/OR *Sequential Compression Device (SCD) 5 or more Highest Order ONE of the following medications: *Heparin 5000 units SQ TID (Preferred with Epidurals) *Enoxaparin/Lovenox 40 mg SQ daily (WT < 150 kg, CrCl > 30 mL/min) *Enoxaparin/Lovenox 30 mg SQ daily (WT < 150 kg, CrCl > 10-29 mL/min) *Enoxaparin/Lovenox 30 mg SQ BID (WT < 150 kg, CrCl > 30 mL/min) AND *Sequential Compression Device (SCD)
[2017-11-15] MEDS ORDERED: Potassium Chlor 20 mEq Premix 20 MEQ/100 ML PIGGYBACK IV.SIG PRN ×2 (20:45)
[2017-11-15] MEDS ORDERED: Magnesium Oxide 400 MG Tablet PO PRN (20:45)
[2017-11-15] MEDS ORDERED: Potassium Phosphate Inj 30 MMOL in Sodium Chlor 0.9% Inj 250 ML IV.SIG PRN (20:45)
[2017-11-15] MEDS ORDERED: Bisacodyl 10 MG Supp RECTAL PRN (20:45)
[2017-11-15] MEDS ORDERED: Magnesium Sulfate Inj 4 GM in Sodium Chlor 0.9% Inj 92 ML IV.SIG PRN (20:45)
[2017-11-15] MEDS ORDERED: Sodium Phosphate Inj 30 MMOL in Sodium Chlor 0.9% Inj 250 ML IV.SIG PRN (20:45)
[2017-11-15] MEDS ORDERED: Magnesium Sulfate Inj 2 GM in Sodium Chlor 0.9% Inj 96 ML IV.SIG PRN (20:45)
[2017-11-15] MEDS ORDERED: Potassium Chloride 25 MEQ Effervescent Tablet PO PRN (20:45)
[2017-11-15] MEDS ORDERED: Potassium Phosphate 500 MG Soluble Tablet PO PRN ×2 (20:45)
[2017-11-15] MEDS ORDERED: Potassium Chlor 40 mEq Premix 40 MEQ/100 ML PIGGYBACK IV.SIG PRN ×2 (20:45)
--- NOTE | 2017-11-15 21:31 | P.HPCC ---
History of Present Illness Service: Critical Care Medicine Primary Care Physician: Onofre Gimenez MD Chief Complaint: headache History of Present Illness: 77yF with history of breast cancer who had a mechanical fall a few days ago when she tripped over a toy and hit her head. no LOC. has been having headache since then. today presented to ER with headache and found to have small SDH without midline shift. denies N/V. denies anticoagulant use. ROS otherwise negative except for headache. no dizziness, syncope, light-headedness, weakness , numbness, loss of bowel or bladder control. Inpatient Certification: I certify that the inpatient services were ordered in accordance with Medicare regulations governing the order. This includes certification that hospital inpatient services are reasonable and necessary and in the case of services not specified as inpatient-only under 42 CFR 419.22(n), that they are appropriately provided as inpatient services in accordance to with the 2-midnight benchmark under 43 CFR 412.3(e) Estimated Total Length of Stay (Days): 3 Plans for Post Hospital Care: Home Review of Systems All other systems reviewed negative except as stated in HPI PMFSH - History History Provided By: Patient, Family Member - Medical History Medical History: Medical History (Last Reviewed 11/15/17 @ 21:16 by IVONNE Dao) Anxiety Breast cancer Hypercholesteremia Hypertension Ulcer - Surgical History Surgical History: Surgical History (Last Reviewed 11/15/17 @ 21:16 by IVONNE Dao) H/O tubal ligation History of biopsy Hx of cholecystectomy - Tobacco History Smoking Status: Never smoker - Alcohol History How Often Do You Have a Drink Containing Alcohol: Never - Substance Use History Substance History: No History of Abuse - Travel History Recent Travel in the [place] Within the Last 8 Weeks: No Recent Travel Out of the Country Within the Last 8 Weeks: No - Immunization History Tetanus Immunization: Unsure Hx Influenza Vaccine This Season: Yes Medications and Allergies Active Medications: Active Medications Acetaminophen (Tylenol) 650 mg PO Q6H PRN PRN Reason: PAIN 1-10 AND/OR FEVER >101F Al Hydroxide/Mg Hydroxide (Milk Of Magnesia Liq) 30 ml PO Q12H PRN PRN Reason: Mild Constipation Albuterol (Duoneb Neb (Prn)) 1 ampul NEB Q2HR NEB PRN PRN Reason: WHEEZING Bisacodyl (Dulcolax Supp) 10 mg RECTAL DAILY PRN PRN Reason: SEVERE CONSITIPATION Chlorhexidine Gluconate (Chlorhexidine 2% Cloth) 3 pack TOPICAL DAILY@0400 PRN PRN Reason: Extra cloth needed Stop: 11/21/17 03:59 Chlorhexidine Gluconate (Chlorhexidine 2% Cloth) 3 pack TOPICAL DAILY@0400 [facility] Stop: 11/21/17 03:59 Magnesium Sulfate Inj 4 gm/ (Sodium Chloride) 100 mls @ 50 mls/hr IV.SIG UNSCH PRN PRN Reason: For Magnesium 0.9 - 1.1 mg/dL Magnesium Sulfate Inj 2 gm/ (Sodium Chloride) 100 mls @ 50 mls/hr IV.SIG UNSCH PRN PRN Reason: For Magnesium 1.2 - 1.6 mg/dL Sodium Chloride (Ns Inj) 1,000 mls @ 84 mls/hr IV.CONT .[id number] [facility] Potassium Chloride (Kcl 40 Meq Premix Inj) 40 meq in 100 mls @ 25 mls/hr IV.SIG Q2H PRN PRN Reason: For Potassium 2.8 - 3.2 mEq/L Potassium Chloride (Kcl 20 Meq Premix Inj) 20 meq in 100 mls @ 50 mls/hr IV.SIG Q2H PRN PRN Reason: For Potassium 3.3 - 3.5 mEq/L Potassium Chloride (Kcl 40 Meq Premix Inj) 40 meq in 100 mls @ 25 mls/hr IV.SIG UNSCH PRN PRN Reason: For Potassium 3.3 - 3.5 mEq/L Potassium Chloride (Kcl 20 Meq Premix Inj) 20 meq in 100 mls @ 50 mls/hr IV.SIG Q2H PRN PRN Reason: For Potassium 2.8 - 3.2 mEq/L Potassium Phosphate 30 mmol/ (Sodium Chloride) 260 mls @ 42 mls/hr IV.SIG UNSCH PRN PRN Reason: SEE LABEL COMMENTS Sodium Phosphate 30 mmol/ (Sodium Chloride) 260 mls @ 42 mls/hr IV.SIG UNSCH PRN PRN Reason: For Phosphorus < 2.5 mg/dL Lactulose (Lactulose Liq) 30 ml PO DAILY PRN PRN Reason: SEVERE CONSITIPATION Magnesium Oxide (Mag-Ox) 800 mg PO UNSCH PRN PRN Reason: For Magnesium 1.2 - 1.6 mg/dL Non-Formulary Medication (Lovastatin [Lovastatin]) 40 mg PO DAILY [facility] Ondansetron HCl (Zofran Inj) 4 mg IV.PUSH Q6H PRN PRN Reason: NAUSEA OR VOMITING Pantoprazole Sodium (Protonix) 40 mg PO DAILY [facility] Potassium Bicarb/Potassium Chloride (K-Lyte Cl Eff) 50 meq PO UNSCH PRN PRN Reason: For Potassium 3.3 - 3.5 mEq/L Potassium Phosphate (K-Phos Original) 2,000 mg PO UNSCH PRN PRN Reason: SEE LABEL COMMENTS Potassium Phosphate (K-Phos Original) 2,000 mg PO Q4H PRN PRN Reason: Phosphorus Less Than 2.5 mg/dL Senna/Docusate Sodium (Ginger-Colace) 1 tab PO BID [facility] Sennosides (Senokot) 17.2 mg PO Q12H PRN PRN Reason: Moderate Constipation Sodium Chloride (Ns Flush) 2 ml IV.FLUSH BID [facility] Sodium Chloride (Ns Flush) 2 ml IV.FLUSH PRN PRN PRN Reason: FLUSH AFTER USING IV ACCESS Allergies Allergy/AdvReac Type Severity Reaction Status Date / Time Sulfa (Sulfonamide Allergy Intermediate RASH Verified 11/15/17 18:03 Antibiotics) Home Medications Medication Instructions Recorded Confirmed Type alprazolam 0.5 mg PO TID PRN 11/15/17 11/15/17 History hydrocodone-acetaminophen 1 tab PO Q4-6H PRN 11/15/17 11/15/17 History lovastatin 40 mg PO DAILY 11/15/17 11/15/17 History pantoprazole 40 mg PO DAILY 11/15/17 11/15/17 History triamterene-hydrochlorothiazid 1 tab PO DAILY 11/15/17 11/15/17 History Results - Labs CBC & Chem 7: 11/15/17 18:35 11/15/17 18:35 Labs: Short CBC 11/15/17 Range/Units 18:35 WBC 12.5 H (4.0-11.0) th/mm3 Hgb 14.8 (11.6-15.3) gm/dL Hct 44.0 (35.0-46.0) % Plt Count 229 (150-450) th/mm3 [facility] 11/15/17 18:35 Sodium 133 L Potassium 3.4 L Chloride 93 L Carbon Dioxide 28.0 BUN 8 Creatinine 0.84 Calcium 9.9 Liver Function 11/15/17 Range/Units 18:35 Total Bilirubin 1.1 H (0.2-1.0) mg/dL AST 17 (15-37) U/L ALT 22 (10-53) U/L Alkaline Phosphatase 104 (45-117) U/L Albumin 3.7 (3.4-5.0) g/dL Urine 11/15/17 Range/Units 18:52 Urine Color Straw (Yellw/Straw) Urine Clarity Clear (Clear) Urine pH 8.0 (5.0-8.5) Ur Specific [place] 1.003 (1.002-1.035) Urine Protein Negative (Neg-Trace) mg/dL Urine Glucose (UA) Negative (Negative) mg/dL - Imaging Impressions Abdomen/Pelvis CT 11/15/17 18:06 CONCLUSION: 1. No acute abnormality is identified within the abdomen or pelvis. 2. Nonacute findings include small hiatal hernia, sigmoid diverticulosis, hepatic steatosis, and severe atherosclerotic disease. Chest CT 11/15/17 18:06 CONCLUSION: 1. No acute finding is identified to explain the patient's chest pain. There is moderate atherosclerotic disease of the aorta. 2. There is an asymmetric nodular area in the outer right breast measuring approximately 11 mm. Patient has not had a recent mammogram at one of our facilities according to our records. Suggest further evaluation with outpatient diagnostic mammogram and ultrasound for further evaluation. 3. Please refer to abdomen and pelvis CT report for description of the supradiaphragmatic findings. Head CT 11/15/17 18:06 CONCLUSION: 1. There is a small acute left frontal subdural hematoma measuring 4 mm in thickness with acute blood products along the anterior falx cerebri. No midline shift or herniation is present. No skull fracture is visualized. 2. The remaining brain findings are chronic including mild generalized atrophy and mild periventricular white matter low-attenuation. Cervical Spine CT 11/15/17 18:12 CONCLUSION: 1. Multilevel degenerative disc disease without an acute cervical spine abnormality identified. 2. There is moderate left neural foraminal stenosis at C3-C4. Exam Vital signs: Vital Signs 11/15/17 16:52 11/15/17 18:03 11/15/17 18:11 Temperature 37.3 C Pulse Rate 106 H 99 H 100 H Respiratory Rate 18 18 18 Blood Pressure 150/82 H 164/80 H 164/80 H Pulse Oximetry 97 98 95 11/15/17 18:52 11/15/17 20:58 Temperature Pulse Rate 108 H Respiratory Rate 16 16 Blood Pressure 164/81 H Pulse Oximetry 96 Intake & Output 11/15/17 11/15/17 11/16/17 06:59 18:59 06:59 Weight 68.039 kg Narrative: GENERAL: elderly female, lying in bed, no acute distress. HEENT: Normocephalic. Atraumatic. Pupils 3mm, equal, round, reactive, conjugate. Mucous membranes are moist NECK: Trachea is midline. There is no JVD. CHEST: room air. equal chest rise. CARDIOVASCULAR: normal rate, regular rhythm. sinus. ABDOMEN: Soft, nontender, nondistended. No guarding. MUSCULOSKELETAL: Pulses 2+. No peripheral edema. NEUROLOGICAL: RASS 0. GCS 15. follows commands. COLLETTE 5/5 in all 4 extremities. sensation grossly intact. no focal deficits. Caprini VTE Risk Assessment Caprini VTE Risk Assessment: Moderate/High Risk (score >= 2) VTE Pharmacological Exception Reason: Intracranial lesions Caprini Risk Assessment Model: Point Value = 1 Point Value = 2 Point Value = 3 Point Value = 5 Age 41-60 Minor surgery BMI > 25 kg/m2 Swollen legs Varicose veins or History of unexplained or recurrent spontaneous Oral contraceptives or hormone replacement Sepsis (< 1 month) Serious lung disease, including pneumonia (< 1 month) Abnormal pulmonary function Acute myocardial infarction Congestive heart failure (< 1 month) History of inflammatory bowel disease Medical patient at bed rest Age 61-74 Arthroscopic surgery Major open surgery (> 45 min) Laparoscopic surgery (> 45 min) Malignancy Confined to bed (> 72 hours) Immobilizing plaster cast Central venous access Age >= 75 History of VTE Family history of VTE Factor V Leiden Prothrombin [id number] Lupus anticoagulant Anticardiolipin antibodies Elevated serum homocysteine Heparin-induced thrombocytopenia Other congenital or acquired thrombophilia Stroke (< 1 month) Elective arthroplasty Hip, pelvis, or leg fracture Acute spinal cord injury (< 1 month) Prophylaxis Regimen: Total Risk Factor Score Risk Level Prophylaxis Regimen 0-1 Low Early ambulation 2 Moderate Order ONE of the following: *Sequential Compression Device (SCD) *Heparin 5000 units SQ BID 3-4 Higher Order ONE of the following medications: *Heparin 5000 units SQ TID *Enoxaparin/Lovenox 40 mg SQ daily (WT < 150 kg, CrCl > 30 mL/min) *Enoxaparin/Lovenox 30 mg SQ daily (WT < 150 kg, CrCl > 10-29 mL/min) *Enoxaparin/Lovenox 30 mg SQ BID (WT < 150 kg, CrCl > 30 mL/min) AND/OR *Sequential Compression Device (SCD) 5 or more Highest Order ONE of the following medications: *Heparin 5000 units SQ TID (Preferred with Epidurals) *Enoxaparin/Lovenox 40 mg SQ daily (WT < 150 kg, CrCl > 30 mL/min) *Enoxaparin/Lovenox 30 mg SQ daily (WT < 150 kg, CrCl > 10-29 mL/min) *Enoxaparin/Lovenox 30 mg SQ BID (WT < 150 kg, CrCl > 30 mL/min) AND *Sequential Compression Device (SCD) Assessment and Plan - Assessment and Plan Plan: Assessment: 77yF with traumatic intracranial hemorrhage without midline shift. admit to ICU for serial neuro exams. consult neurosurgery to follow along. interval repeat head CT. avoid anticoagulation. Intracranial hemorrhage - q1h neuro checks - avoid long-acting sedatives - interval repeat head CT - nsgy consult - avoid anticoagulation - restart home meds - nurse bedside swallow assessment and advance diet - SCDs - PT consult
[2017-11-15] MEDS: Sod Chloride 0.9% Inj 1,000 ML IV.CONT SCH (22:00)
[2017-11-16] MEDS: Senna/Docusate Sodium 8.6/50 MG Tablet PO SCH ×2 (00:26→08:37)
[2017-11-16] MEDS ORDERED: Chlorhexidine Gluconate 2% 1 Pack (2 Cloths) TOPICAL SCH (04:00)
[2017-11-16] MEDS ORDERED: Chlorhexidine Gluconate 2% 1 Pack (2 Cloths) TOPICAL PRN (04:00)
[2017-11-16] MEDS: Acetaminophen 325 MG Tablet PO PRN ×2 (04:22→17:31)
[2017-11-16 04:30] LABS: Baso # (Auto) 0.1 th/mm3 (0.0-0.2); Baso % (Auto) 0.5 % (0.0-2.0); Eos # (Auto) 0.1 th/mm3 (0.0-0.4); Eos % (Auto) 1.4 % (0.0-4.0); Hematocrit 38.3 % (35.0-46.0); Hemoglobin 13.2 gm/dL (11.6-15.3); Lymph # (Auto) 2.6 th/mm3 (1.0-4.8); Lymph % (Auto) 24.4 % (9.0-44.0); Mean Corpuscular HGB Conc 34.5 % (32.0-36.0); Mean Corpuscular Hemoglobin 30.1 pg (27.0-34.0); Mean Corpuscular Volume 87.3 fL (80.0-100.0); Mean Platelet Volume 8.2 fL (7.0-11.0); Mono # (Auto) 1.1 th/mm3 (0.0-0.9); Mono % (Auto) 10.4 % (0.0-8.0); Neut # (Auto) 6.7 th/mm3 (1.8-7.7); Neut % (Auto) 63.3 % (16.0-70.0); Platelet Count 198 th/mm3 (150-450); Red Blood Count 4.39 mil/mm3 (4.00-5.30); White Blood Count 10.6 th/mm3 (4.0-11.0)
[2017-11-16 04:42] LABS: Activated Partial Thrombo Time 27.4 sec (24.3-30.1); INR 1.1 Ratio; Prothrombin Time 10.7 sec (9.8-11.6)
[2017-11-16 04:52] LABS: Alanine Aminotransferase 22 U/L (10-53); Albumin 3.3 g/dL (3.4-5.0); Alkaline Phosphatase 89 U/L (45-117); Anion Gap 10 meq/L (5-15); Aspartate Aminotransferase 16 U/L (15-37); Blood Urea Nitrogen 8 mg/dL (7-18); Calcium 8.3 mg/dL (8.5-10.1); Carbon Dioxide 26.5 meq/L (21.0-32.0); Chloride 99 meq/L (98-107); Glomerular Filtration Rate 80 mL/min (>89); Glucose,Random 98 mg/dL (74-106); Potassium 3.5 meq/L (3.5-5.1); Sodium 135 meq/L (136-145); Total Protein 6.6 g/dL (6.4-8.2)
--- NOTE | 2017-11-16 05:01 | CT ---
EXAM DATE: 11/16/2017 4:54 AM EDT AGE/SEX: 77 years / Female INDICATIONS: Follow up intracerebral hemorrhage. CLINICAL DATA: This is the patient's initial encounter. Patient reports that signs and symptoms have been present for 1 day and indicates a pain score of 2/10. MEDICAL/SURGICAL HISTORY: Carcinoma, breast. Hypertension. Ulcers. Tubal ligation. Cholecystecto my. RADIATION DOSE: 56.35 CTDI (mGy) COMPARISON: No prior exams available for comparison. TECHNIQUE: CT of the head without contrast. Using automated exposure control and adjustment of the mA and/or kV according to patient size, radiation dose was kept as low as reasonably achievable to ob tain optimal diagnostic quality images. DICOM format image data is available electronically for revi ew and comparison. FINDINGS: Cerebrum: Minimal subdural hemorrhage left frontal region and along the falx again seen and not signi ficantly changed. Old lacunar infarct right caudate head. The ventricles are normal for age. No evid ence of midline shift, mass lesion, or acute infarction. Posterior Fossa: The cerebellum and brainstem are intact. The 4th ventricle is midline. The cerebe llopontine angle is unremarkable. Extracranial: The visualized portion of the orbits is intact. Skull: The calvaria is intact. No evidence of skull fracture. CONCLUSION: 1. Left-sided subdural hemorrhage is unchanged. 2. No midline shift or mass effect. Electronically signed by: Mathew Dowling MD 11/16/2017 5:00 AM EDT
[2017-11-16] MEDS: Sod Chloride 0.9% Inj 1,000 ML IV.CONT SCH (08:53)
[2017-11-16] MEDS ORDERED: Non-Formulary Drug (Lovastatin [Lovastatin] 40 MG) PO SCH (09:00)
--- NOTE | 2017-11-16 16:31 | P.PNNS ---
Subjective Interval history: 11/16: doing well, no changes overnight, feeling a bit better <Ya Hedrick - Last Filed: 11/16/17 16:41> Physical Exam Vital signs: Vital Signs 11/15/17 16:52 11/15/17 18:03 11/15/17 18:11 Temperature 99.1 F Pulse Rate 106 H 99 H 100 H Respiratory Rate 18 18 18 Blood Pressure 150/82 H 164/80 H 164/80 H Pulse Oximetry 97 98 95 11/15/17 18:52 11/15/17 20:58 11/15/17 22:03 Temperature Pulse Rate 108 H 103 H Respiratory Rate 16 16 16 Blood Pressure 164/81 H 149/82 H Pulse Oximetry 96 11/15/17 22:54 11/15/17 23:00 11/16/17 00:29 Temperature Pulse Rate 98 H 96 H Respiratory Rate 16 16 Blood Pressure 124/87 130/62 Pulse Oximetry 95 11/16/17 01:30 11/16/17 02:40 11/16/17 04:00 Temperature Pulse Rate 86 90 88 Respiratory Rate 16 16 16 Blood Pressure 137/57 L 129/58 L 132/62 Pulse Oximetry 95 95 11/16/17 05:25 11/16/17 06:30 11/16/17 08:30 Temperature Pulse Rate 82 75 82 Respiratory Rate 16 16 14 Blood Pressure 132/62 117/58 L 110/64 Pulse Oximetry 97 11/16/17 12:00 11/16/17 16:02 Temperature Pulse Rate 104 H 92 H Respiratory Rate 18 14 Blood Pressure 166/67 H 166/72 H Pulse Oximetry 98 96 Intake & Output 11/15/17 11/16/17 11/16/17 18:59 06:59 18:59 Intake Total 1000 / 1000 1000 / 1000 Balance 1000 / 1000 1000 / 1000 Weight 68.039 kg Intake: IV 1000 / 1000 1000 / 1000 NS Inj 1,000 ML @ 84 mls/hr IV. 1000 / 1000 [facility] .[id number] [facility]#:[id number] Narrative: GENERAL: Comfortable in no acute distress. SKIN: Warm and dry. HEAD: Normocephalic. EYES: No scleral icterus. No injection or drainage. NECK: Supple, trachea midline. No JVD or lymphadenopathy. CARDIOVASCULAR: Regular rate and rhythm RESPIRATORY: Breath sounds equal bilaterally. No accessory muscle use. GASTROINTESTINAL: Abdomen soft, non-tender, nondistended. MUSCULOSKELETAL: No cyanosis, or edema. Neuro: alert, oriented. speech fluent. pupils equal, facial motor symmetric. <Ya Hedrick - Last Filed: 11/16/17 16:41> Vital signs: Intake & Output 11/16/17 11/17/17 11/17/17 18:59 06:59 18:59 Intake Total 1000 / 1000 Balance 1000 / 1000 Intake: IV 1000 / 1000 NS Inj 1,000 ML @ 84 mls/hr IV. 1000 / 1000 [facility] .[id number] [facility] Rx#:[id number] Narrative: GENERAL: ms Childers remains comfortable in no acute distress. SKIN: Warm and dry. HEAD: Normocephalic. EYES: No scleral icterus. No injection or drainage. NECK: Supple, trachea midline. No JVD or lymphadenopathy. CARDIOVASCULAR: Regular rate and rhythm RESPIRATORY: Breath sounds equal bilaterally. No accessory muscle use. GASTROINTESTINAL: Abdomen soft, non-tender, nondistended. MUSCULOSKELETAL: No cyanosis, or edema. Neuro: alert, oriented. speech fluent. pupils equal, facial motor symmetric. <Jeremias Veliz - Last Filed: 11/17/17 16:38> Assessment and Plan - Plan repeat CT Brain completed, stable findings cont neuro checks critical care management Cervical Spine CT 11/15/17 18:12 CONCLUSION: 1. Multilevel degenerative disc disease without an acute cervical spine abnormality identified. 2. There is moderate left neural foraminal stenosis at C3-C4. Head CT 11/16/17 05:00 CONCLUSION: 1. Left-sided subdural hemorrhage is unchanged. 2. No midline shift or mass effect. <Ya Hedrick - Last Filed: 11/16/17 16:41> - Plan I reviewed her follow up Ct brain Head CT 11/16/17 05:00 CONCLUSION: 1. Left-sided subdural hemorrhage is unchanged. 2. No midline shift or mass effect. She is neurologically stable Continue nonoperative treatment She is cleared for discharge per neurosurgical standpoint The exam, history, and the medical decision-making described in the above note were completed with the assistance of the mid-level provider. I reviewed and agree with the findings presented. I attest that I had a [id number] encounter with the patient on the same day, and personally performed and documented my assessment and findings in the medical record. <Jeremias Veliz - Last Filed: 11/17/17 16:38>
--- NOTE | 2017-11-16 16:36 | P.PNCC ---
Subjective Subjective Remarks/Hospital Course: 77yF with history of breast cancer who had a mechanical fall a few days ago when she tripped over a toy and hit her head. no LOC. has been having headache since then. today presented to ER with headache and found to have small SDH without midline shift. denies N/V. denies anticoagulant use. ROS otherwise negative except for headache. no dizziness, syncope, light-headedness, weakness , numbness, loss of bowel or bladder control. 11/16: Remains alert, conversant. No vomiting or seizures. F/U CT head no change. Daughter is at bedside and agrees she is her normal self. Again no loss of consciousness or seizures. Objective Vital Signs / I&O: Vital Signs 11/15/17 16:52 11/15/17 18:03 11/15/17 18:11 Temperature 99.1 F Pulse Rate 106 H 99 H 100 H Respiratory Rate 18 18 18 Blood Pressure 150/82 H 164/80 H 164/80 H Pulse Oximetry 97 98 95 11/15/17 18:52 11/15/17 20:58 11/15/17 22:03 Temperature Pulse Rate 108 H 103 H Respiratory Rate 16 16 16 Blood Pressure 164/81 H 149/82 H Pulse Oximetry 96 11/15/17 22:54 11/15/17 23:00 11/16/17 00:29 Temperature Pulse Rate 98 H 96 H Respiratory Rate 16 16 Blood Pressure 124/87 130/62 Pulse Oximetry 95 11/16/17 01:30 11/16/17 02:40 11/16/17 04:00 Temperature Pulse Rate 86 90 88 Respiratory Rate 16 16 16 Blood Pressure 137/57 L 129/58 L 132/62 Pulse Oximetry 95 95 11/16/17 05:25 11/16/17 06:30 11/16/17 08:30 Temperature Pulse Rate 82 75 82 Respiratory Rate 16 16 14 Blood Pressure 132/62 117/58 L 110/64 Pulse Oximetry 97 11/16/17 12:00 11/16/17 16:02 Temperature Pulse Rate 104 H 92 H Respiratory Rate 18 14 Blood Pressure 166/67 H 166/72 H Pulse Oximetry 98 96 Intake & Output 11/15/17 11/16/17 11/16/17 18:59 06:59 18:59 Intake Total 1000 / 1000 1000 / 1000 Balance 1000 / 1000 1000 / 1000 Weight 68.039 kg Intake: IV 1000 / 1000 1000 / 1000 NS Inj 1,000 ML @ 84 mls/hr IV. 1000 / 1000 CONT .[id number] [facility] Rx#:[id number] Result Diagrams: 11/16/17 03:57 11/16/17 03:57 Objective Remarks: PE: Head: Normal Neck: Supple airway widely patent, no obstructive noises. Lungs: Clear bilaterally comfortable respiratory pattern Heart: Regular rate and rhythm, Neuro: Oriented 3, alert, cooperative, conversant. 5/5 strength in all 4 extremities. Pupillary response, extraocular movement, shoulder shrug, smile, grimace, tongue protrusion all normal. Speech is clear. Assessment and Plan - Assessment and Plan Plan: Assessment: 77yF with traumatic intracranial hemorrhage without midline shift. admit to ICU for serial neuro exams. consult neurosurgery to follow along. interval repeat head CT. avoid anticoagulation. Traumatic subdural hematoma. -Discharge when okay with neurosurgery - avoid long-acting sedatives - interval repeat head CT, done no change. - nsgy consult - avoid anticoagulation, no aspirin for 2 weeks. Instructions given for signs of deterioration and indications to return to the emergency department.
--- NOTE | 2017-11-16 17:18 | P.DS ---
Date of admission: 11/15/17 20:49 Primary care physician: Onofre Gimenez MD Attending physician on discharge: Ilir Castle Anticipated date of discharge: 11/16/17 Brief History from admission: 77yF with history of breast cancer who had a mechanical fall a few days ago when she tripped over a toy and hit her head. no LOC. has been having headache since then. today presented to ER with headache and found to have small SDH without midline shift. denies N/V. denies anticoagulant use. ROS otherwise negative except for headache. no dizziness, syncope, light-headedness, weakness , numbness, loss of bowel or bladder control. 11/16: No new symptoms, headache or vomiting. Repeat CAT scan shows no change from initial CAT scan. Injury is 4 days old. Neurologic exam is entirely normal and nonfocal. She is been given specific instructions on when to call the ED or when to call Dr. Veliz's office for follow-up. She is continue all her home prescriptions which have been documented for her. DS: Diagnosis - Discharge Diagnosis (1) Acute subdural hematoma Status: Acute DS: Summary Hospital Course: 77yF with history of breast cancer who had a mechanical fall a few days ago when she tripped over a toy and hit her head. no LOC. has been having headache since then. today presented to ER with headache and found to have small SDH without midline shift. denies N/V. denies anticoagulant use. ROS otherwise negative except for headache. no dizziness, syncope, light-headedness, weakness , numbness, loss of bowel or bladder control. 11/16: Remains alert, conversant. No vomiting or seizures. F/U CT head no change. Daughter is at bedside and agrees she is her normal self. Again no loss of consciousness or seizures. - Time Spent with Patient Total time spent providing and/or coordinating discharge services: Less than 30 minutes Exam Vital signs: Vital Signs 11/15/17 18:03 11/15/17 18:11 11/15/17 18:52 Pulse Rate 99 H 100 H Respiratory Rate 18 18 16 Blood Pressure 164/80 H 164/80 H Pulse Oximetry 98 95 11/15/17 20:58 11/15/17 22:03 11/15/17 22:54 Pulse Rate 108 H 103 H Respiratory Rate 16 16 Blood Pressure 164/81 H 149/82 H Pulse Oximetry 96 95 11/15/17 23:00 11/16/17 00:29 11/16/17 01:30 Pulse Rate 98 H 96 H 86 Respiratory Rate 16 16 16 Blood Pressure 124/87 130/62 137/57 L Pulse Oximetry 95 11/16/17 02:40 11/16/17 04:00 11/16/17 05:25 Pulse Rate 90 88 82 Respiratory Rate 16 16 16 Blood Pressure 129/58 L 132/62 132/62 Pulse Oximetry 95 11/16/17 06:30 11/16/17 08:30 11/16/17 12:00 Pulse Rate 75 82 104 H Respiratory Rate 16 14 18 Blood Pressure 117/58 L 110/64 166/67 H Pulse Oximetry 97 98 11/16/17 16:02 Pulse Rate 92 H Respiratory Rate 14 Blood Pressure 166/72 H Pulse Oximetry 96 Intake & Output 11/15/17 11/16/17 11/16/17 18:59 06:59 18:59 Intake Total 1000 / 1000 1000 / 1000 Balance 1000 / 1000 1000 / 1000 Weight 68.039 kg Intake: IV 1000 / 1000 1000 / 1000 NS Inj 1,000 ML @ 84 mls/hr IV. 1000 / 1000 CONT .[id number] [facility] Rx#:[id number] Results Procedures completed during hospitalization: CT Head Labs on day of discharge: Labs from last 24 hours 11/16/17 11/16/17 11/16/17 03:57 03:57 03:57 WBC 10.6 RBC 4.39 Hgb 13.2 Hct 38.3 MCV 87.3 MCH 30.1 MCHC 34.5 RDW 13.0 Plt Count 198 MPV 8.2 Neut % (Auto) 63.3 Lymph % (Auto) 24.4 [place] % (Auto) 10.4 H Eos % (Auto) 1.4 Baso % (Auto) 0.5 Neut # (Auto) 6.7 Lymph # (Auto) 2.6 [place] # (Auto) 1.1 H Eos # (Auto) 0.1 Baso # (Auto) 0.1 WBC Differential . Differential Comment Auto diff final PT 10.7 INR 1.1 APTT 27.4 Sodium 135 L Potassium 3.5 Chloride 99 Carbon Dioxide 26.5 Anion Gap 10 BUN 8 Creatinine 0.71 Estimated GFR 80 L Random Glucose 98 Lactic Acid Calcium 8.3 L D Total Bilirubin 0.9 AST 16 ALT 22 Alkaline Phosphatase 89 Total Protein 6.6 D Albumin 3.3 L Lipase Urine Color Urine Clarity Urine pH Ur Specific [place] Urine Protein Urine Glucose (UA) Urine Ketones Urine Occult Blood Urine Nitrate Urine Bilirubin Urine Urobilinogen Ur Leukocyte Esterase Urine RBC Urine WBC Ur Squamous Epith Cells Micro UA Comment Urine Culture Comments 11/15/17 11/15/17 11/15/17 18:52 18:35 18:35 WBC 12.5 H RBC 5.03 Hgb 14.8 Hct 44.0 MCV 87.5 MCH 29.5 MCHC 33.7 RDW 13.0 Plt Count 229 MPV 8.4 Neut % (Auto) 70.0 Lymph % (Auto) 19.1 [place] % (Auto) 9.6 H Eos % (Auto) 1.0 Baso % (Auto) 0.3 Neut # (Auto) 8.8 H Lymph # (Auto) 2.4 [place] # (Auto) 1.2 H Eos # (Auto) 0.1 Baso # (Auto) 0.0 WBC Differential . Differential Comment Auto diff final PT INR APTT Sodium 133 L Potassium 3.4 L Chloride 93 L Carbon Dioxide 28.0 Anion Gap 12 BUN 8 Creatinine 0.84 Estimated GFR 66 L Random Glucose 112 H Lactic Acid Calcium 9.9 Total Bilirubin 1.1 H AST 17 ALT 22 Alkaline Phosphatase 104 Total Protein 7.8 Albumin 3.7 Lipase 51 L Urine Color Straw Urine Clarity Clear Urine pH 8.0 Ur Specific [place] 1.003 Urine Protein Negative Urine Glucose (UA) Negative Urine Ketones Negative Urine Occult Blood Small H Urine Nitrate Negative Urine Bilirubin Negative Urine Urobilinogen Less than 2 Ur Leukocyte Esterase Trace H Urine RBC 1 Urine WBC 3 Ur Squamous Epith Cells <1 Micro UA Comment Culture not ind Urine Culture Comments Culture not ind 11/15/17 11/15/17 18:35 18:30 WBC RBC Hgb Hct MCV MCH MCHC RDW Plt Count MPV Neut % (Auto) Lymph % (Auto) [place] % (Auto) Eos % (Auto) Baso % (Auto) Neut # (Auto) Lymph # (Auto) [place] # (Auto) Eos # (Auto) Baso # (Auto) WBC Differential Differential Comment PT 10.6 INR 1.0 APTT 27.2 Sodium Potassium Chloride Carbon Dioxide Anion Gap BUN Creatinine Estimated GFR Random Glucose Lactic Acid 1.3 Calcium Total Bilirubin AST ALT Alkaline Phosphatase Total Protein Albumin Lipase Urine Color Urine Clarity Urine pH Ur Specific [place] Urine Protein Urine Glucose (UA) Urine Ketones Urine Occult Blood Urine Nitrate Urine Bilirubin Urine Urobilinogen Ur Leukocyte Esterase Urine RBC Urine WBC Ur Squamous Epith Cells Micro UA Comment Urine Culture Comments - Impressions ITS Impressions Abdomen/Pelvis CT 11/15/17 18:06 CONCLUSION: 1. No acute abnormality is identified within the abdomen or pelvis. 2. Nonacute findings include small hiatal hernia, sigmoid diverticulosis, hepatic steatosis, and severe atherosclerotic disease. Chest CT 11/15/17 18:06 CONCLUSION: 1. No acute finding is identified to explain the patient's chest pain. There is moderate atherosclerotic disease of the aorta. 2. There is an asymmetric nodular area in the outer right breast measuring approximately 11 mm. Patient has not had a recent mammogram at one of our facilities according to our records. Suggest further evaluation with outpatient diagnostic mammogram and ultrasound for further evaluation. 3. Please refer to abdomen and pelvis CT report for description of the supradiaphragmatic findings. Cervical Spine CT 11/15/17 18:12 CONCLUSION: 1. Multilevel degenerative disc disease without an acute cervical spine abnormality identified. 2. There is moderate left neural foraminal stenosis at C3-C4. Head CT 11/16/17 05:00 CONCLUSION: 1. Left-sided subdural hemorrhage is unchanged. 2. No midline shift or mass effect. Discharge Plan - Discharge Disposition Patient Disposition: 01 Discharge Home - Discharge Condition Condition: Good - Discharge Order Discharge Orders: Discharge Order (Routine); Ordered 11/16/17 Ordered By: Ilir Castle - Discharge Details Anticipated Discharge Date: 11/16/17 - Physicians Team Primary Care Provider: Onofre Gimenez Attending Provider: Naren Multani Other Providers: Jeremias Veliz MD ; [employer]
== END 2017-11-16 18:43 | disposition home or self-care (01) ==
LOC: NEPE 16:37 → NEDA 20:49 → NEDH 11-16 03:57 → N03 11-16 15:55
PROVIDERS: ADMIT Internal Medicine Critical Care Medicine; ATTEND Internal Medicine Critical Care Medicine

== ENCOUNTER 2018-01-27 20:12 | Inpatient (IN) ==
[2018-01-27 20:55] LABS: Hemoglobin 14.4 gm/dL (11.6-15.3); Lymph % (Auto) 5.4 % (9.0-44.0); Mean Corpuscular HGB Conc 34.4 % (32.0-36.0); Mean Corpuscular Hemoglobin 30.7 pg (27.0-34.0); Mean Corpuscular Volume 89.3 fL (80.0-100.0); Mean Platelet Volume 8.9 fL (7.0-11.0); Mono # (Auto) 1.2 th/mm3 (0.0-0.9); Mono % (Auto) 6.8 % (0.0-8.0); Neut # (Auto) 15.6 th/mm3 (1.8-7.7); Neut % (Auto) 87.8 % (16.0-70.0); Platelet Count 147 th/mm3 (150-450); White Blood Count 17.8 th/mm3 (4.0-11.0)
[2018-01-27 21:10] LABS: Anion Gap 10 meq/L (5-15); Aspartate Aminotransferase 31 U/L (15-37); Blood Urea Nitrogen 12 mg/dL (7-18); Calcium 8.5 mg/dL (8.5-10.1); Carbon Dioxide 26.8 meq/L (21.0-32.0); Chloride 88 meq/L (98-107); Glomerular Filtration Rate 47 mL/min (>89); Glucose,Random 257 mg/dL (74-106); Potassium 3.8 meq/L (3.5-5.1); Sodium 125 meq/L (136-145)
[2018-01-27 21:11] LABS: Alanine Aminotransferase 41 U/L (10-53)
--- NOTE | 2018-01-27 21:12 | XR ---
EXAM DATE: 01/27/2018 9:08 PM EDT AGE/SEX: 77 years / Female INDICATIONS: Fever CLINICAL DATA: This is the patient's initial encounter. Patient reports that signs and symptoms have been present for 3 days and indicates a pain score of 0/10. MEDICAL/SURGICAL HISTORY: . Carcinoma, breast. Hypertension.. . Tubal ligation. Appendectomy. Cholecystectomy COMPARISON: [facility], CHEST SINGLE AP, 04/28/2015. . FINDINGS: The lungs are clear without infiltrate, nodule, or mass. There is no appreciable pleural effusion for technique. Heart and mediastinum are unremarkable. CONCLUSION: No acute cardiopulmonary disease. Electronically signed by: Garfield Fernandez MD 01/27/2018 9:10 PM EDT
[2018-01-27 21:13] LABS: Alkaline Phosphatase 99 U/L (45-117); Total Protein 7.1 g/dL (6.4-8.2)
[2018-01-27] MEDS ORDERED: Morphine Inj 4 MG/ML Vial IV.PUSH ONE (21:14)
--- NOTE | 2018-01-27 21:50 | ED ---
HPI General Chief complaint: Pain: Chronic Stated complaint: Pain all over,evac Time Seen by Provider: 01/27/18 20:32 Source: patient and old records reviewed Mode of arrival: EMS Limitations: no limitations History of Present Illness HPI narrative: This is a patient with a history of breast cancer who is not currently undergoing any treatment because she is waiting for second opinion who presents to us with diffuse aches and pains, subjective fever and urinary tract symptoms. Onset was several days ago. Symptoms have been unrelieved by an tcyi-fvy-baccbdx urinary tract medication. MD complaint: Chief complaint is pain all over Onset (ago): day(s) (3) Severity scale (1-10): 10 Pain Consistency: constant Relieving factors: none Exacerbating factors: none Associated symptoms: fever/chills Related Data Home Medications Medication Instructions Recorded Confirmed alprazolam 0.5 mg PO TID PRN 11/15/17 01/27/18 hydrocodone-acetaminophen 1 tab PO Q4-6H PRN 11/15/17 01/27/18 lovastatin 40 mg PO DAILY 11/15/17 01/27/18 pantoprazole 40 mg PO DAILY 11/15/17 01/27/18 triamterene-hydrochlorothiazid 1 tab PO DAILY 11/15/17 01/27/18 numohhvb-nme-swxp-FA-lutein 1 tab PO DAILY 12/17/17 01/27/18 [Centrum Silver Women] acetaminophen [Tylenol Extra 500 mg PO DIRECTED PRN 01/05/18 01/27/18 Strength] ascorbic acid (vitamin C) [Vitamin 500 mg PO DAILY 01/05/18 01/27/18 C] cyanocobalamin (vitamin B-12) 1,000 mcg PO DAILY 01/05/18 01/27/18 [Vitamin B-12] buspirone 7.5 mg PO BID 01/27/18 01/27/18 Previous Rx's Medication Instructions Recorded potassium chloride 20 meq PO BID #60 tab 12/17/17 sucralfate [Carafate] 1 g PO QID 56 Days #224 tab 12/17/17 Allergies Allergy/AdvReac Type Severity Reaction Status Date / Time Sulfa (Sulfonamide Allergy Intermediate RASH Verified 01/27/18 20:30 Antibiotics) codeine Allergy Swelling Verified 01/27/18 20:30 of Lip/Tongue/Throat Review of Systems ROS: all other systems reviewed are negative [facility] Medical History Medical History Anxiety (Acute) Breast cancer (Acute) HX: breast cancer (Acute) History of anxiety (Acute) Hypercholesteremia (Acute) Hypertension (Acute) Ulcer (Acute) Surgical History Surgical History H/O tubal ligation (Acute) History of (Acute) History of biopsy (Acute) Hx of appendectomy (Acute) Hx of cholecystectomy (Acute) Social History Social History Substance History: No History of Abuse Second Hand Smoke Exposure: No Smoking Status: Never smoker How Often Do You Have a Drink Containing Alcohol: Never Recent Travel in [facility] within the Last 8 Weeks: No Recent Out of Country Travel within the Last 8 Weeks: No Immunization History Tetanus Immunization: <5 Years Hx Influenza Vaccine This Season: Yes Exam Const General: cooperative, healthy appearing and well developed Orientation: alert, awake and oriented x3 HENMT Head: normal to inspection, normocephalic and atraumatic Mouth: moist mucous membranes Eyes Alignment and Position: alignment normal and position abnormal Conjunctivae: conjunctivae normal Sclera: sclerae normal EOM: EOM intact bilaterally Neck Neck: normal visual inspection and full ROM Chest Chest: normal inspection of the chest Resp Effort & Inspection: normal respiratory effort and able to speak in complete sentences Auscultation: clear to auscultation bilaterally Cardio Rate: tachycardic Rhythm: abnormal rhythm GI Inspection: normal to inspection Palpation: soft and tender (Diffuse) Back/Spine/Pelvis Cervical Spine: cervical ROM normal Thoracic/Lumbar Spine: thoraco-lumbar ROM normal Skin General: no rashes or lesions noted, turgor normal and dry skin Neuro General: alert, awake, oriented x3, moves all extremities and CN's II-XI intact bilaterally Extrem General: normal to inspection and full ROM Psych Appearance: grossly normal Mental Status: mental status grossly normal Speech and Movement: speech and movement normal Mood: anxious mood Affect: anxious affect Attitude: cooperative Thought Process: normal Thought Content: normal Judgment: judgment good Course Hospital Course: The patient reports she is feeling better following fluids morphine. Her heart rate has been in the 100-110 range. Not on a Cardizem drip. She was treated with a single dose of Cardizem IV push. Consultations Consultation #1: Dr. Bond Time: 23:32 Initial Documented Vital Signs Temperature 99.0 F 01/27/18 20:26 Pulse Rate 130 H 01/27/18 20:26 Respiratory Rate 24 01/27/18 20:26 Blood Pressure 139/86 01/27/18 20:26 Pulse Oximetry 95 01/27/18 20:26 Last Documented Vital Signs Temperature 99.0 F 01/27/18 20:26 Pulse Rate 92 H 01/27/18 21:03 Respiratory Rate 24 01/27/18 20:26 Blood Pressure 139/86 01/27/18 20:26 Pulse Oximetry 97 01/27/18 21:03 Critical Care Time Critical Care Time: Yes Total Critical Care Time: 30 Attestation: Time to perform other separately billable procedures was not included in the critical care time. My time did not include minutes spent treating any other patients simultaneously or on activities that did not directly contribute to the patient's treatment. The services I provided to this patient were to treat and/or prevent clinically significant deterioration due to atrial fibrillation with a rapid ventricular response I provided critical care services requiring my management, as noted below: Chart data review, documentation time, medication orders and management, vital sign assessments/reviewing monitor data, ordering and reviewing lab tests, ordering and interpreting/reviewing x-rays and diagnostic studies, care of the patient and discussion of the patient with the admitting physicians Medical Decision Making MDM Narrative Medical decision making narrative: Patient presents to us via [facility] with the chief complaint of hurting all over. She was found by [facility] to be in atrial fibrillation with a rapid ventricular response. She was also found by them to be hyperglycemic. She does not have a history of diabetes. Septic workup has been initiated. Her tachycardia has been treated with a single dose of Cardizem 0.25 mg/kg. Heart rate is now down to about 100. She is also being treated with a 2 L fluid bolus. She has requested pain medication. She has been given morphine 4 mg IV. Her UTI is being treated with IV Rocephin. Medical Screen Exam Complete: Yes Emergency Medical Condition: Yes Differential Diagnosis Differential Diagnosis: Differential diagnosis of tachycardia includes but is not limited to PSVT, atrial fibrillation with a rapid ventricular response, sinus tachycardia (due to hypovolemia, anemia, thyrotoxicosis, PE) Medical Records Medical records reviewed: Yes I reviewed the patient's medical records. In addition to the breast cancer, she has a history of a previous subdural hematoma, hypertension, hyperlipidemia and peptic ulcer disease. Lab Data Lab results reviewed: Yes I reviewed the patient's lab results. Lab results narrative: She has leukocytosis and a mild lactic acidosis. She also has a urinary tract infection. Result diagrams: 01/27/18 20:35 01/27/18 20:35 Lab Results 01/27/18 01/27/18 01/27/18 Range/Units 20:35 20:35 20:43 WBC 17.8 H (4.0-11.0) th/mm3 RBC 4.70 (4.00-5.30) mil/mm3 Hgb 14.4 (11.6-15.3) gm/dL Hct 42.0 (35.0-46.0) % MCV 89.3 (80.0-100.0) fL MCH 30.7 (27.0-34.0) pg MCHC 34.4 (32.0-36.0) % RDW 14.0 (11.6-17.2) % Plt Count 147 L D (150-450) th/mm3 MPV 8.9 (7.0-11.0) fL Neut % (Auto) 87.8 H (16.0-70.0) % Lymph % (Auto) 5.4 L (9.0-44.0) % [place] % (Auto) 6.8 (0.0-8.0) % Eos % (Auto) 0.0 (0.0-4.0) % Baso % (Auto) 0.0 (0.0-2.0) % Neut # (Auto) 15.6 H (1.8-7.7) th/mm3 Lymph # (Auto) 1.0 (1.0-4.8) th/mm3 [place] # (Auto) 1.2 H (0.0-0.9) th/mm3 Eos # (Auto) 0.0 (0.0-0.4) th/mm3 Baso # (Auto) 0.0 (0.0-0.2) th/mm3 WBC Differential . Differential Comment Auto diff final Sodium 125 L (136-145) meq/L Potassium 3.8 (3.5-5.1) meq/L Chloride 88 L (98-107) meq/L Carbon Dioxide 26.8 (21.0-32.0) meq/L Anion Gap 10 (5-15) meq/L BUN 12 (7-18) mg/dL Creatinine 1.13 H (0.50-1.00) mg/dL Estimated GFR 47 L (>89) mL/min Random Glucose 257 H (74-106) mg/dL Lactic Acid 2.4 H (0.4-2.0) mmol/L Calcium 8.5 (8.5-10.1) mg/dL Total Bilirubin 1.7 H (0.2-1.0) mg/dL AST 31 (15-37) U/L ALT 41 (10-53) U/L Alkaline Phosphatase 99 (45-117) U/L Total Protein 7.1 (6.4-8.2) g/dL Albumin 3.0 L (3.4-5.0) g/dL Urine Color (Yellw/Straw) Urine Clarity (Clear) Urine pH (5.0-8.5) Ur Specific [place] (1.002-1.035) Urine Protein (Neg-Trace) mg/dL Urine Glucose (UA) (Negative) mg/dL Urine Ketones (Negative) mg/dL Urine Occult Blood (Negative) Urine Nitrate (Negative) Urine Bilirubin (Negative) Urine Urobilinogen (Less than 2) mg/dL Ur Leukocyte Esterase (Negative) Urine RBC (0-3) /hpf Urine WBC (0-5) /hpf Urine WBC Clumps (None) Ur Squamous Epith Cells (0-5) /hpf Urine Bacteria (None) /hpf Urine Mucus (Occasional) /lpf Micro UA Comment Ur Microscopic Review Urine Culture Comments 01/27/18 Range/Units 22:35 WBC (4.0-11.0) th/mm3 RBC (4.00-5.30) mil/mm3 Hgb (11.6-15.3) gm/dL Hct (35.0-46.0) % MCV (80.0-100.0) fL MCH (27.0-34.0) pg MCHC (32.0-36.0) % RDW (11.6-17.2) % Plt Count (150-450) th/mm3 MPV (7.0-11.0) fL Neut % (Auto) (16.0-70.0) % Lymph % (Auto) (9.0-44.0) % [place] % (Auto) (0.0-8.0) % Eos % (Auto) (0.0-4.0) % Baso % (Auto) (0.0-2.0) % Neut # (Auto) (1.8-7.7) th/mm3 Lymph # (Auto) (1.0-4.8) th/mm3 [place] # (Auto) (0.0-0.9) th/mm3 Eos # (Auto) (0.0-0.4) th/mm3 Baso # (Auto) (0.0-0.2) th/mm3 WBC Differential Differential Comment Sodium (136-145) meq/L Potassium (3.5-5.1) meq/L Chloride (98-107) meq/L Carbon Dioxide (21.0-32.0) meq/L Anion Gap (5-15) meq/L BUN (7-18) mg/dL Creatinine (0.50-1.00) mg/dL Estimated GFR (>89) mL/min Random Glucose (74-106) mg/dL Lactic Acid (0.4-2.0) mmol/L Calcium (8.5-10.1) mg/dL Total Bilirubin (0.2-1.0) mg/dL AST (15-37) U/L ALT (10-53) U/L Alkaline Phosphatase (45-117) U/L Total Protein (6.4-8.2) g/dL Albumin (3.4-5.0) g/dL Urine Color Yellow (Yellw/Straw) Urine Clarity Cloudy H (Clear) Urine pH 6.0 (5.0-8.5) Ur Specific [place] 1.007 (1.002-1.035) Urine Protein 30 H (Neg-Trace) mg/dL Urine Glucose (UA) 500 or greater (Negative) mg/dL Urine Ketones Negative (Negative) mg/dL Urine Occult Blood Small H (Negative) Urine Nitrate Negative (Negative) Urine Bilirubin Negative (Negative) Urine Urobilinogen 2.0 H (Less than 2) mg/dL Ur Leukocyte Esterase Large H (Negative) Urine RBC 6 H (0-3) /hpf Urine WBC (0-5) /hpf Urine WBC Clumps Occasional H (None) Ur Squamous Epith Cells <1 (0-5) /hpf Urine Bacteria Few H (None) /hpf Urine Mucus Few H (Occasional) /lpf Micro UA Comment Culture indicated Ur Microscopic Review Not Reportable Urine Culture Comments Culture indicated Imaging Data Radiologist's impression: Chest X-Ray 01/27/18 20:36 CONCLUSION: No acute cardiopulmonary disease. ECG Data EKG Prior to Arrival: No Attestation: I personally reviewed and interpreted this ECG as follows: Discharge Plan Discharge Disposition Patient Disposition: 30 Still Patient Discharge Details Diagnosis: Leukocytosis, Urinary tract infection, Atrial fibrillation with RVR, Hyponatremia Physicians Team ED Provider: Lisa Burns Primary Care Provider: Onofre Gimenez Rxs /Orders / Referrals /Forms Prescriptions: No Action djzznsdr-lyl-jpgy-FA-lutein [Centrum Silver Women] 8 mg iron-400 mcg-300 mcg Tablet 1 tab PO DAILY RF: 0 sucralfate [Carafate] 1 gram tablet 1 g PO QID 56 Days Qty: 224 RF: 0 potassium chloride 20 mEq tablet extended release 20 meq PO BID Qty: 60 RF: 0 cyanocobalamin (vitamin B-12) [Vitamin B-12] 1,000 mcg Tablet 1,000 mcg PO DAILY RF: 0 acetaminophen [Tylenol Extra Strength] 500 mg Tablet 500 mg PO DIRECTED PRN (Reason: Acute Pain) RF: 0 ascorbic acid (vitamin C) [Vitamin C] 500 mg Tablet 500 mg PO DAILY RF: 0 buspirone 7.5 mg Tablet 7.5 mg PO BID RF: 0 hydrocodone-acetaminophen 5-325 mg Tablet 1 tab PO Q4-6H PRN (Reason: Pain) RF: 0 lovastatin 40 mg Tablet 40 mg PO DAILY RF: 0 alprazolam 0.5 mg Tablet 0.5 mg PO TID PRN (Reason: Anxiety) RF: 0 pantoprazole 40 mg Tablet,Delayed Release (Dr/Ec) 40 mg PO DAILY RF: 0 triamterene-hydrochlorothiazid 37.5-25 mg Tablet 1 tab PO DAILY RF: 0 Discharge Interventions Interventions: Vital Signs Last Done: 01/27/18 20:30 Status ED Status: Pending Admission
[2018-01-27] MEDS: Sod Chloride 0.9% Inj 1,000 ML IV.SIG SCH (21:55)
[2018-01-27 22:55] LABS: Bacteria,Urine Few /hpf; Bilirubin,Urine Negative (Negative); Clarity,Urine Cloudy (Clear); Color,Urine Yellow (Yellw/Straw); Glucose,Urine (UA) 500 or Greater mg/dL (Negative); Leukocyte Esterase,Urine Large (Negative); Mucus,Urine Few /lpf (Occasional); Nitrite,Urine Negative (Negative); Specific Gravity,Urine 1.007 (1.002-1.035); Squamous Epithelial Cell,Urine <1 /hpf (0-5)
[2018-01-27] MEDS ORDERED: Bisacodyl 10 MG Supp RECTAL PRN (23:33)
[2018-01-27] MEDS ORDERED: ALPRAZolam 0.5 MG Tablet PO PRN (23:34)
--- NOTE | 2018-01-27 23:36 | P.HPIM ---
History of Present Illness Primary Care Physician: Onofre Gimenez MD History of Present Illness: This is a 77-year-old female with a PMH of Breast CA, Anxiety, HTN and Hyperlipidemia who was brought to the ER by daughter secondary to complaints of generalized malaise, fever and dysuria x2-3 days. Has been taking OTC medications for UTI symptoms with no relief. Denies nausea, vomiting or diarrhea. On arrival, noted to be in A. fib with RVR, HR 130, BP 139/86, O2 sat 95% on RA, Temp 99.0. WBC 17.8. Platelets 147. Na 125. Creatinine 1.13. BS 257. Lactic Acid 2.4. UA positive for UTI. CXR with no acute findings. Denies h/o A-fib in the past, no c/o chest pain or SOB at this time. S/p Rocephin and Cardizem IV x1 dose, HR now 100's. - Diagnosis (1) Sepsis (2) UTI (urinary tract infection) (3) Atrial fibrillation with RVR (4) Hyperglycemia (5) Breast cancer Inpatient Certification: I certify that the inpatient services were ordered in accordance with Medicare regulations governing the order. This includes certification that hospital inpatient services are reasonable and necessary and in the case of services not specified as inpatient-only under 42 CFR 419.22(n), that they are appropriately provided as inpatient services in accordance to with the 2-midnight benchmark under 43 CFR 412.3(e) Estimated Total Length of Stay (Days): 2 Plans for Post Hospital Care: Not yet determined Review of Systems PAST FAMILY HISTORY: Reviewed. No h/o DM or CAD All other systems reviewed negative except as stated in HPI PMFSH - History History Provided By: Patient - Medical History Medical History: Medical History (Last Reviewed 01/27/18 @ 21:46 by Lisa Burns) Anxiety Breast cancer HX: breast cancer History of anxiety Hypercholesteremia Hypertension Ulcer - Surgical History Surgical History: Surgical History (Last Reviewed 01/27/18 @ 21:46 by Lisa Burns) H/O tubal ligation History of History of biopsy Hx of appendectomy Hx of cholecystectomy - Family History Family History: Family History (Last Reviewed 01/05/18 @ 11:27 by Kole Luna MD) Other Family history of diabetes mellitus - Tobacco History Second Hand Smoke Exposure: No Tobacco Use In Past 30 Days: No Smoking Status: Never smoker - Alcohol History How Often Do You Have a Drink Containing Alcohol: Never - Substance Use History Substance History: No History of Abuse - Travel History Recent Travel in the [place] Within the Last 8 Weeks: No Recent Travel Out of the Country Within the Last 8 Weeks: No - Immunization History Tetanus Immunization: <5 Years Hx Influenza Vaccine This Season: Yes Medications and Allergies Active Medications: Active Medications Sodium Chloride (Ns Inj) 1,000 mls @ 0 mls/hr IV.SIG BOLUS LANA Stop: 01/28/18 21:46 Last Admin: 01/27/18 21:55 Dose: 1,000 mls/hr Ceftriaxone Sodium 1,000 mg/ (Sodium Chloride) 100 mls @ 200 mls/hr IV.SIG ONCE ONE Stop: 01/27/18 23:42 Allergies Allergy/AdvReac Type Severity Reaction Status Date / Time Sulfa (Sulfonamide Allergy Intermediate RASH Verified 01/27/18 20:30 Antibiotics) codeine Allergy Swelling Verified 01/27/18 20:30 of Lip/Tongue/Throat Home Medications Medication Instructions Recorded Confirmed Type alprazolam 0.5 mg PO TID PRN 11/15/17 01/27/18 History hydrocodone-acetaminophen 1 tab PO Q4-6H PRN 11/15/17 01/27/18 History lovastatin 40 mg PO DAILY 11/15/17 01/27/18 History pantoprazole 40 mg PO DAILY 11/15/17 01/27/18 History triamterene-hydrochlorothiazid 1 tab PO DAILY 11/15/17 01/27/18 History [id number]-crzu-FA-lutein 1 tab PO DAILY 12/17/17 01/27/18 History [Centrum Silver Women] acetaminophen [Tylenol Extra 500 mg PO DIRECTED PRN 01/05/18 01/27/18 History Strength] ascorbic acid (vitamin C) [Vitamin 500 mg PO DAILY 01/05/18 01/27/18 History C] cyanocobalamin (vitamin B-12) 1,000 mcg PO DAILY 01/05/18 01/27/18 History [Vitamin B-12] buspirone 7.5 mg PO BID 01/27/18 01/27/18 History Exam Vital signs: Vital Signs 01/27/18 20:26 01/27/18 20:30 01/27/18 21:03 Temperature 99.0 F Pulse Rate 130 H 127 H 92 H Respiratory Rate 24 Blood Pressure 139/86 Pulse Oximetry 95 97 Intake & Output 01/27/18 01/27/18 01/28/18 06:59 18:59 06:59 Weight 67.132 kg Narrative: PE: GENERAL: Very pleasant elderly white female in no acute distress, appears weak/ tired. Daughter at bedside. SKIN: Focused skin assessment warm and dry. HEENT: PERRLA, EOMI. No scleral icterus or conjunctival pallor. No lid lag or facial droop. CARDIOVASCULAR: A. fib with RVR, HR 100's. No obvious murmurs to auscultation. No chest tenderness to palpation. RESPIRATORY: No obvious rhonchi or wheezing. Clear to auscultation. Breath sounds equal bilaterally. GASTROINTESTINAL: Abdomen soft, non-tender, nondistended. BS normal. MUSCULOSKELETAL: Extremities without clubbing, cyanosis, or edema. No obvious deformities. NEUROLOGICAL: Awake, alert and oriented x4. No focal neurologic deficits. Moving both upper and lower extremities spontaneously. PSYCHIATRIC: Appropriate mood and affect. Insight and judgment normal. Results - Labs CBC & Chem 7: 01/27/18 20:35 01/27/18 20:35 Labs: Short CBC 01/27/18 Range/Units 20:35 WBC 17.8 H (4.0-11.0) th/mm3 Hgb 14.4 (11.6-15.3) gm/dL Hct 42.0 (35.0-46.0) % Plt Count 147 L D (150-450) th/mm3 BMP 01/27/18 20:35 Sodium 125 L Potassium 3.8 Chloride 88 L Carbon Dioxide 26.8 BUN 12 Creatinine 1.13 H Calcium 8.5 Liver Function 01/27/18 Range/Units 20:35 Total Bilirubin 1.7 H (0.2-1.0) mg/dL AST 31 (15-37) U/L ALT 41 (10-53) U/L Alkaline Phosphatase 99 (45-117) U/L Albumin 3.0 L (3.4-5.0) g/dL Urine 01/27/18 Range/Units 22:35 Urine Color Yellow (Yellw/Straw) Urine Clarity Cloudy H (Clear) Urine pH 6.0 (5.0-8.5) Ur Specific [place] 1.007 (1.002-1.035) Urine Protein 30 H (Neg-Trace) mg/dL Urine Glucose (UA) 500 or greater (Negative) mg/dL - Imaging Impressions Chest X-Ray 01/27/18 20:36 CONCLUSION: No acute cardiopulmonary disease. Caprini VTE Risk Assessment Caprini VTE Risk Assessment: No/Low Risk (score <= 1) Caprini Risk Assessment Model: Point Value = 1 Point Value = 2 Point Value = 3 Point Value = 5 Age 41-60 Minor surgery BMI > 25 kg/m2 Swollen legs Varicose veins or History of unexplained or recurrent spontaneous Oral contraceptives or hormone replacement Sepsis (< 1 month) Serious lung disease, including pneumonia (< 1 month) Abnormal pulmonary function Acute myocardial infarction Congestive heart failure (< 1 month) History of inflammatory bowel disease Medical patient at bed rest Age 61-74 Arthroscopic surgery Major open surgery (> 45 min) Laparoscopic surgery (> 45 min) Malignancy Confined to bed (> 72 hours) Immobilizing plaster cast Central venous access Age >= 75 History of VTE Family history of VTE Factor V Leiden Prothrombin [id number] Lupus anticoagulant Anticardiolipin antibodies Elevated serum homocysteine Heparin-induced thrombocytopenia Other congenital or acquired thrombophilia Stroke (< 1 month) Elective arthroplasty Hip, pelvis, or leg fracture Acute spinal cord injury (< 1 month) Prophylaxis Regimen: Total Risk Factor Score Risk Level Prophylaxis Regimen 0-1 Low Early ambulation 2 Moderate Order ONE of the following: *Sequential Compression Device (SCD) *Heparin 5000 units SQ BID 3-4 Higher Order ONE of the following medications: *Heparin 5000 units SQ TID *Enoxaparin/Lovenox 40 mg SQ daily (WT < 150 kg, CrCl > 30 mL/min) *Enoxaparin/Lovenox 30 mg SQ daily (WT < 150 kg, CrCl > 10-29 mL/min) *Enoxaparin/Lovenox 30 mg SQ BID (WT < 150 kg, CrCl > 30 mL/min) AND/OR *Sequential Compression Device (SCD) 5 or more Highest Order ONE of the following medications: *Heparin 5000 units SQ TID (Preferred with Epidurals) *Enoxaparin/Lovenox 40 mg SQ daily (WT < 150 kg, CrCl > 30 mL/min) *Enoxaparin/Lovenox 30 mg SQ daily (WT < 150 kg, CrCl > 10-29 mL/min) *Enoxaparin/Lovenox 30 mg SQ BID (WT < 150 kg, CrCl > 30 mL/min) AND *Sequential Compression Device (SCD) Assessment and Plan - Assessment (1) Sepsis Code(s): A41.9 - Sepsis, unspecified organism Status: Acute (2) UTI (urinary tract infection) Code(s): N39.0 - Urinary tract infection, site not specified Status: Acute (3) Atrial fibrillation with RVR Code(s): I48.91 - Unspecified atrial fibrillation Status: Acute (4) Hyperglycemia Code(s): R73.9 - Hyperglycemia, unspecified Status: Acute (5) Breast cancer Code(s): C50.919 - Malignant neoplasm of unspecified site of unspecified female breast Status: Acute - Plan A/P: 1. Sepsis: Temp 99.0, HR 130, WBC 14, Lactic Acid 2.4, Source-UTI, s/p Blood cultures, Rocephin IV, continue w/ IV Abx, IVF for hydration, repeat Lactic Acid , follow up cultures. 2. UTI: U/a w/ significant UTI, continue IV Rocephin, follow up urine cultures , monitor I/O, IVF. 3. A-fib w/ RVR: No h/o A-fib, possibly compounded by acute Sepsis/UTI, HR 130 's on arrival, s/p Cardizem IV x1 w/ improvement, HR now 90-100's, will monitor closely, Cardizem gtt if needed, Telemetry, check Echo to eval for valvular abnormality/cardiomyopathy, Consult Cardiology for further eval/intervention. Hold ASA in light of h/o SDH, continue home Statin. 4. Hyperglycemia: BS 257, Daughter notes pt was told she was "prediabetic", previously prescribed Metformin, however discontinued due to side effects. Check Hgb A1c, sliding scale w/ Accu-checks. 5. Breast CA: recent diagnosis, s/p eval by Dr. Prescott, not currently on treatment, pending second opinion. 6. DVT Prophylaxis: Pharmacologic contraindication, h/o recent SDH. 7. Social work for d/c planning as needed 8. Case discussed w/ ER physician at length, labs/records/imaging reviewed by me (5) Breast cancer Qualifiers: Breast location: unspecified site of breast Estrogen receptor status: unspecified Patient sex: female Laterality: bilateral Qualified Code(s): C50.911 - Malignant neoplasm of unspecified site of right female breast; C50.912 - Malignant neoplasm of unspecified site of left female breast
[2018-01-27] MEDS ORDERED: Dextrose 50% in Water 50 ML Vial IV.PUSH PRN (23:50)
[2018-01-28] MEDS: Sod Chloride 0.9% Inj 1,000 ML IV.SIG SCH (00:53)
[2018-01-28] MEDS: Sod Chloride 0.9% Inj 1,000 ML IV.CONT SCH ×3 (02:20→22:49)
[2018-01-28 03:41] LABS: Baso % (Auto) 0.2 % (0.0-2.0); Hematocrit 40.8 % (35.0-46.0); Hemoglobin 13.7 gm/dL (11.6-15.3); Lymph # (Auto) 1.4 th/mm3 (1.0-4.8); Mean Corpuscular HGB Conc 33.6 % (32.0-36.0); Mean Corpuscular Hemoglobin 30.7 pg (27.0-34.0); Mean Corpuscular Volume 91.1 fL (80.0-100.0); Mean Platelet Volume 8.4 fL (7.0-11.0); Neut # (Auto) 15.1 th/mm3 (1.8-7.7); Neut % (Auto) 85.8 % (16.0-70.0); Platelet Count 127 th/mm3 (150-450); Red Blood Count 4.48 mil/mm3 (4.00-5.30); Red Cell Distribution Width 13.9 % (11.6-17.2); White Blood Count 17.6 th/mm3 (4.0-11.0)
[2018-01-28 04:21] LABS: Alanine Aminotransferase 34 U/L (10-53); Albumin 2.7 g/dL (3.4-5.0); Alkaline Phosphatase 90 U/L (45-117); Anion Gap 12 meq/L (5-15); Aspartate Aminotransferase 23 U/L (15-37); Blood Urea Nitrogen 11 mg/dL (7-18); Calcium 8.1 mg/dL (8.5-10.1); Chloride 92 meq/L (98-107); Glomerular Filtration Rate 55 mL/min (>89); Glucose,Random 156 mg/dL (74-106); Sodium 128 meq/L (136-145); Total Protein 6.6 g/dL (6.4-8.2)
[2018-01-28] MEDS: Senna/Docusate Sodium 8.6/50 MG Tablet PO SCH ×2 (08:08→20:08)
[2018-01-28] MEDS: Sucralfate 1 GM Tablet PO SCH ×4 (08:24→20:08)
[2018-01-28] MEDS: Insulin NovoLOG Aspart Correctional Sugar Inj SQ SCH ×4 (08:24→20:08)
[2018-01-28] MEDS: Metoprolol Tartrate 25 MG Tablet PO SCH ×2 (10:15→20:08)
[2018-01-28] MEDS: Acetaminophen 325 MG Tablet PO PRN (10:15)
--- NOTE | 2018-01-28 11:04 | P.PNIM ---
Subjective Interval history: This is a 77-year-old female with a PMH of Breast CA, Anxiety, HTN and Hyperlipidemia who was brought to the ER by daughter secondary to complaints of generalized malaise, fever and dysuria x2-3 days. Has been taking OTC medications for UTI symptoms with no relief. Denies nausea, vomiting or diarrhea. On arrival, noted to be in A. fib with RVR, HR 130, BP 139/86, O2 sat 95% on RA, Temp 99.0. WBC 17.8. Platelets 147. Na 125. Creatinine 1.13. BS 257. Lactic Acid 2.4. UA positive for UTI. CXR with no acute findings. Denies h/o A-fib in the past, no c/o chest pain or SOB at this time. S/p Rocephin and Cardizem IV x1 dose, HR now 100's. 01-28 patient is in ICU due to atrial fibrillation. Has been seen by cardiology. Found to have gram-negative rods in blood We will adjust antibiotics Awake alert and oriented x3 talkative and cooperative A.m. labs PT and OT eval and treat Physical Exam Vital signs: Vital Signs 01/27/18 20:26 01/27/18 20:30 01/27/18 21:00 Temperature 99.0 F Pulse Rate 130 H 127 H 92 H Respiratory Rate 24 16 Blood Pressure 139/86 157/83 H Pulse Oximetry 95 97 01/27/18 21:03 01/27/18 22:00 01/27/18 23:00 Temperature 98.9 F Pulse Rate 92 H 106 H 94 H Respiratory Rate 16 18 Blood Pressure 129/60 121/58 L Pulse Oximetry 97 98 95 01/28/18 00:00 01/28/18 01:00 01/28/18 02:00 Temperature Pulse Rate 100 H 98 H 92 H Respiratory Rate 16 18 16 Blood Pressure 116/56 L 123/53 L 128/60 Pulse Oximetry 95 95 95 01/28/18 02:49 01/28/18 02:50 01/28/18 04:00 Temperature 98.2 F Pulse Rate 117 H 134 H Respiratory Rate 23 Blood Pressure 156/64 H Pulse Oximetry 94 L 95 01/28/18 06:00 01/28/18 08:00 Temperature 98.5 F Pulse Rate 126 H 110 H Respiratory Rate 31 H Blood Pressure 103/58 L Pulse Oximetry 96 Intake & Output 01/27/18 01/28/18 01/28/18 18:59 06:59 18:59 Intake Total 1340 / 1340 1000 / 1000 Output Total 1100 / 1100 Balance 240 / 240 1000 / 1000 Weight 69 kg Intake: IV 1100 / 1100 1000 / 1000 NS Inj 1,000 ML @ 100 mls/hr IV 1000 / 1000 .CONT .Q10H LANA Rx#:[id number] NS Inj 1,000 ML @ Wide Open IV. 1000 / 1000 SIG BOLUS LANA Rx#:[id number] Rocephin Inj 1,000 MG In NS Inj 100 / 100 100 ML @ 200 mls/hr IV.SIG ONCE ONE Rx#:[id number] Oral 240 / 240 Output: Urine 900 / 900 Urine Amount (Catheter) 200 / 200 Female External 200 / 200 Other: # Voids 3 Date of Last Bowel Movement 01/27/18 01/27/18 Weight On Admission 69 kg Narrative: GENERAL: Very pleasant elderly white female in no acute distress, appears weak/ tired. Daughter at bedside. Awake alert and oriented x3 talkative and cooperative SKIN: Focused skin assessment warm and dry. HEENT: PERRLA, EOMI. No scleral icterus or conjunctival pallor. No lid lag or facial droop. Tongue is midline CARDIOVASCULAR: A. fib with RVR, HR 100's. No obvious murmurs to auscultation. No chest tenderness to palpation. Irregularly irregular RESPIRATORY: No obvious rhonchi or wheezing. Clear to auscultation. Breath sounds equal bilaterally. GASTROINTESTINAL: Abdomen soft, non-tender, nondistended. BS normal. MUSCULOSKELETAL: Extremities without clubbing, cyanosis, or edema. No obvious deformities. NEUROLOGICAL: Awake, alert and oriented x4. No focal neurologic deficits. Moving both upper and lower extremities spontaneously. PSYCHIATRIC: Appropriate mood and affect. Insight and judgment normal. - Urinary Catheter Management Female External Cath placed during this visit: no Results - Labs CBC & Chem 7: 01/28/18 03:28 01/28/18 03:28 Laboratory Results - last 24 hr 01/27/18 01/27/18 01/27/18 20:35 20:35 20:35 WBC 17.8 H RBC 4.70 Hgb 14.4 Hct 42.0 MCV 89.3 MCH 30.7 MCHC 34.4 RDW 14.0 Plt Count 147 L D MPV 8.9 Neut % (Auto) 87.8 H Lymph % (Auto) 5.4 L [place] % (Auto) 6.8 Eos % (Auto) 0.0 Baso % (Auto) 0.0 Neut # (Auto) 15.6 H Lymph # (Auto) 1.0 [place] # (Auto) 1.2 H Eos # (Auto) 0.0 Baso # (Auto) 0.0 WBC Differential . Differential Comment Auto diff final Sodium 125 L Potassium 3.8 Chloride 88 L Carbon Dioxide 26.8 Anion Gap 10 BUN 12 Creatinine 1.13 H Estimated GFR 47 L POC Glucose Random Glucose 257 H Lactic Acid Calcium 8.5 Total Bilirubin 1.7 H AST 31 ALT 41 Alkaline Phosphatase 99 Troponin I Less than 0.02 L Total Protein 7.1 Albumin 3.0 L Urine Color Urine Clarity Urine pH Ur Specific [place] Urine Protein Urine Glucose (UA) Urine Ketones Urine Occult Blood Urine Nitrate Urine Bilirubin Urine Urobilinogen Ur Leukocyte Esterase Urine RBC Urine WBC Urine WBC Clumps Ur Squamous Epith Cells Urine Bacteria Urine Mucus Micro UA Comment Ur Microscopic Review Urine Culture Comments Nasal Screen MRSA (PCR) 01/27/18 01/27/18 01/28/18 20:43 22:35 00:45 WBC RBC Hgb Hct MCV MCH MCHC RDW Plt Count MPV Neut % (Auto) Lymph % (Auto) [place] % (Auto) Eos % (Auto) Baso % (Auto) Neut # (Auto) Lymph # (Auto) [place] # (Auto) Eos # (Auto) Baso # (Auto) WBC Differential Differential Comment Sodium Potassium Chloride Carbon Dioxide Anion Gap BUN Creatinine Estimated GFR POC Glucose Random Glucose Lactic Acid 2.4 H 1.8 Calcium Total Bilirubin AST ALT Alkaline Phosphatase Troponin I Total Protein Albumin Urine Color Yellow Urine Clarity Cloudy H Urine pH 6.0 Ur Specific [place] 1.007 Urine Protein 30 H Urine Glucose (UA) 500 or greater Urine Ketones Negative Urine Occult Blood Small H Urine Nitrate Negative Urine Bilirubin Negative Urine Urobilinogen 2.0 H Ur Leukocyte Esterase Large H Urine RBC 6 H Urine WBC Urine WBC Clumps Occasional H Ur Squamous Epith Cells <1 Urine Bacteria Few H Urine Mucus Few H Micro UA Comment Culture indicated Ur Microscopic Review Not Reportable Urine Culture Comments Culture indicated Nasal Screen MRSA (PCR) 01/28/18 01/28/18 01/28/18 00:45 02:43 03:28 WBC 17.6 H RBC 4.48 Hgb 13.7 Hct 40.8 MCV 91.1 MCH 30.7 MCHC 33.6 RDW 13.9 Plt Count 127 L MPV 8.4 Neut % (Auto) 85.8 H Lymph % (Auto) 8.0 L [place] % (Auto) 6.0 Eos % (Auto) 0.0 Baso % (Auto) 0.2 Neut # (Auto) 15.1 H Lymph # (Auto) 1.4 [place] # (Auto) 1.0 H Eos # (Auto) 0.0 Baso # (Auto) 0.0 WBC Differential . Differential Comment Auto diff final Sodium Potassium Chloride Carbon Dioxide Anion Gap BUN Creatinine Estimated GFR POC Glucose Random Glucose Lactic Acid Calcium Total Bilirubin AST ALT Alkaline Phosphatase Troponin I Less than 0.02 L Total Protein Albumin Urine Color Urine Clarity Urine pH Ur Specific [place] Urine Protein Urine Glucose (UA) Urine Ketones Urine Occult Blood Urine Nitrate Urine Bilirubin Urine Urobilinogen Ur Leukocyte Esterase Urine RBC Urine WBC Urine WBC Clumps Ur Squamous Epith Cells Urine Bacteria Urine Mucus Micro UA Comment Ur Microscopic Review Urine Culture Comments Nasal Screen MRSA (PCR) Not detected 01/28/18 01/28/18 03:28 08:03 WBC RBC Hgb Hct MCV MCH MCHC RDW Plt Count MPV Neut % (Auto) Lymph % (Auto) [place] % (Auto) Eos % (Auto) Baso % (Auto) Neut # (Auto) Lymph # (Auto) [place] # (Auto) Eos # (Auto) Baso # (Auto) WBC Differential Differential Comment Sodium 128 L Potassium 4.0 Chloride 92 L Carbon Dioxide 24.0 Anion Gap 12 BUN 11 Creatinine 0.98 Estimated GFR 55 L POC Glucose 170 H Random Glucose 156 H D Lactic Acid Calcium 8.1 L Total Bilirubin 1.3 H AST 23 ALT 34 Alkaline Phosphatase 90 Troponin I Less than 0.02 L Total Protein 6.6 Albumin 2.7 L Urine Color Urine Clarity Urine pH Ur Specific [place] Urine Protein Urine Glucose (UA) Urine Ketones Urine Occult Blood Urine Nitrate Urine Bilirubin Urine Urobilinogen Ur Leukocyte Esterase Urine RBC Urine WBC Urine WBC Clumps Ur Squamous Epith Cells Urine Bacteria Urine Mucus Micro UA Comment Ur Microscopic Review Urine Culture Comments Nasal Screen MRSA (PCR) Microbiology 01/27/18 20:35 Blood - Peripheral Anaerobic Blood Culture - Preliminary gram negative rods 01/27/18 20:43 Blood - Peripheral Aerobic Blood Culture - Preliminary gram negative rods 01/27/18 20:43 Blood - Peripheral Anaerobic Blood Culture - Preliminary gram negative rods - Imaging Impressions Chest X-Ray 01/27/18 20:36 CONCLUSION: No acute cardiopulmonary disease. Assessment and Plan - Assessment (1) Sepsis Code(s): A41.9 - Sepsis, unspecified organism Status: Acute (2) UTI (urinary tract infection) Code(s): N39.0 - Urinary tract infection, site not specified Status: Acute (3) Atrial fibrillation with RVR Code(s): I48.91 - Unspecified atrial fibrillation Status: Acute (4) Hyperglycemia Code(s): R73.9 - Hyperglycemia, unspecified Status: Acute (5) Breast cancer Code(s): C50.919 - Malignant neoplasm of unspecified site of unspecified female breast Status: Acute - Plan 1. Sepsis: Temp 99.0, HR 130, WBC 14, Lactic Acid 2.4, Source-UTI, s/p Blood cultures, Rocephin IV, continue w/ IV Abx, IVF for hydration, repeat Lactic Acid , follow up cultures. Positive for gram-negative rods 2. UTI: U/a w/ significant UTI, continue IV Rocephin, follow up urine cultures , monitor I/O, IVF. Gram-negative rods 3. A-fib w/ RVR: No h/o A-fib, possibly compounded by acute Sepsis/UTI, HR 130 's on arrival, s/p Cardizem IV x1 w/ improvement, HR now 90-100's, will monitor closely, Cardizem gtt if needed, Telemetry, check Echo to eval for valvular abnormality/cardiomyopathy, Consult Cardiology for further eval/intervention. Hold ASA in light of h/o SDH, continue home Statin. Have been adjusted by cardiology 4. Hyperglycemia: BS 257, Daughter notes pt was told she was "prediabetic", previously prescribed Metformin, however discontinued due to side effects. Check Hgb A1c, sliding scale w/ Accu-checks. Positive diabetes 5. Breast CA: recent diagnosis, s/p eval by Dr. Prescott, not currently on treatment, pending second opinion. 6. DVT Prophylaxis: Pharmacologic contraindication, h/o recent SDH. 7. Social work for d/c planning as needed PT and OT to eval and treat Adjust antibiotics Discussed with RN and patient and family Code Status: Full code Discussed Condition With: RN and patient and family Discharge Planning: Pending cardiac improvement and treatment of her infection (5) Breast cancer Qualifiers: Breast location: unspecified site of breast Estrogen receptor status: unspecified Patient sex: female Laterality: bilateral Qualified Code(s): C50.911 - Malignant neoplasm of unspecified site of right female breast; C50.912 - Malignant neoplasm of unspecified site of left female breast
[2018-01-28] MEDS ORDERED: Morphine Inj 4 MG/ML Vial IV.PUSH PRN ×2 (11:10)
[2018-01-28] MEDS ORDERED: Acetaminophen 325 MG Tablet PO PRN (11:10)
[2018-01-28] MEDS ORDERED: oxyCODONE/Acetaminophen 10/325 Tablet PO PRN (11:10)
[2018-01-28] MEDS ORDERED: Morphine Sulfate Inj 2 MG/ML Vial IV.PUSH PRN (11:10)
[2018-01-28] MEDS ORDERED: Naloxone Inj 0.4 MG/ML Vial IV.PUSH PRN (11:10)
--- NOTE | 2018-01-28 12:01 | ECHRPT ---
Indication: A FIB FLUTTER CONCLUSIONS The left ventricular systolic function is normal with an estimated ejection fraction in the range of 60-65%. Normal left ventricular size and wall thickness. No regional wall motion abnormality. The left atrial size is mildly dilated. Mild mitral valve regurgitation. There is moderate tricuspid regurgitation. The estimated pulmonary arterial pressure is 37 mmHg. The IVC is normal sized but there is less than 50% collapse with inspiration. No pericardial effusion. No prior echo for comparision. BP: / HR: 99 Rhythm: atrial fibrillation MEASUREMENTS (Male / Female) Normal Values Technical Quality:fair 2D ECHO LV Diastolic Diameter PLAX 4.0 cm 4.2 - 5.9 / 3.9 - 5.3 cm LV Systolic Diameter PLAX 3.1 cm IVS Diastolic Thickness 1.2 cm 0.6 - 1.0 / 0.6 - 0.9 cm LVPW Diastolic Thickness 0.6 cm 0.6 - 1.0 / 0.6 - 0.9 cm LV Relative Wall Thickness 0.4 RV Internal Dim ED PLAX 1.9 cm LA Systolic Diameter LX 3.3 cm 3.0 - 4.0 / 2.7 - 3.8 cm DOPPLER Mitral E Point Velocity 95.3 cm/s TR Peak Velocity 235.7 cm/s TR Peak Gradient 22.2 mmHg Right Atrial Pressure 15.0 mmHg Pulmonary Artery Systolic Pressu 37.2 mmHg Right Ventricular Systolic Press 37.2 mmHg FINDINGS LEFT VENTRICLE Normal left ventricular size. Wall thickness is normal. The left ventricular systolic function is normal with an estimated ejection fraction in the range of 60-65%. RIGHT VENTRICLE Normal right ventricular size and systolic function. LEFT ATRIUM The left atrial size is mildly dilated. RIGHT ATRIUM The right atrial size is mildly dilated. ATRIAL SEPTUM Normal atrial septal thickness without atrial level shunting by limited color doppler interrogation. AORTA The aortic root and proximal ascending aorta are normal in size on limited imaging. MITRAL VALVE Mild mitral valve regurgitation. AORTIC VALVE Aortic valve sclerosis is present. Trace aortic valve regurgitation. TRICUSPID VALVE There is moderate tricuspid regurgitation. The estimated pulmonary arterial pressure is 37 mmHg. PULMONARY VALVE No pulmonary valve regurgitation or stenosis. VESSELS The inferior vena cava is normal in size. PERICARDIUM No pericardial effusion. John Nicolas MD (Electronically Signed) Final Date:28 January 2018 12:00
[2018-01-28 15:44] LABS: Hemoglobin A1c 6.3 % (4.3-6.0)
--- NOTE | 2018-01-28 18:32 | ECG ---
Date Performed: 01/28/2018 Time Performed: 01:38:32 PTAGE: 77 years EKG: ATRIAL FIBRILLATION WITH RAPID VENTRICULAR RESPONSE ABNORMAL RHYTHM ECG PREVIOUS TRACING : 01/27/2018 20.21 DOCTOR: Kayla Locke Interpretating Date/Time 01/28/2018 18:30:47
--- NOTE | 2018-01-28 18:35 | ECG ---
Date Performed: 01/27/2018 Time Performed: 20:21:15 PTAGE: 77 years EKG: ATRIAL FIBRILLATION WITH RAPID VENTRICULAR RESPONSE NONSPECIFIC T-WAVE ABNORMALITY ABNORMAL RHYTHM ECG PREVIOUS TRACING : 01/05/2018 10.53 DOCTOR: Kayla Locke Interpretating Date/Time 01/28/2018 18:32:46
[2018-01-29] MEDS: Acetaminophen 325 MG Tablet PO PRN ×2 (00:54→20:11)
[2018-01-29 05:38] LABS: Baso % (Auto) 0.3 % (0.0-2.0); Eos % (Auto) 0.1 % (0.0-4.0); Hematocrit 35.6 % (35.0-46.0); Hemoglobin 12.1 gm/dL (11.6-15.3); Lymph # (Auto) 0.8 th/mm3 (1.0-4.8); Lymph % (Auto) 5.1 % (9.0-44.0); Mean Corpuscular Hemoglobin 30.8 pg (27.0-34.0); Mean Corpuscular Volume 90.5 fL (80.0-100.0); Mean Platelet Volume 9.2 fL (7.0-11.0); Mono # (Auto) 1.1 th/mm3 (0.0-0.9); Mono % (Auto) 7.3 % (0.0-8.0); Neut # (Auto) 13.6 th/mm3 (1.8-7.7); Neut % (Auto) 87.2 % (16.0-70.0); Platelet Count 110 th/mm3 (150-450); Red Blood Count 3.93 mil/mm3 (4.00-5.30); Red Cell Distribution Width 14.2 % (11.6-17.2); White Blood Count 15.6 th/mm3 (4.0-11.0)
[2018-01-29 06:06] LABS: Alanine Aminotransferase 27 U/L (10-53); Albumin 2.1 g/dL (3.4-5.0); Alkaline Phosphatase 89 U/L (45-117); Anion Gap 9 meq/L (5-15); Aspartate Aminotransferase 21 U/L (15-37); Blood Urea Nitrogen 14 mg/dL (7-18); Calcium 8.2 mg/dL (8.5-10.1); Carbon Dioxide 21.6 meq/L (21.0-32.0); Chloride 97 meq/L (98-107); Glomerular Filtration Rate 66 mL/min (>89); Glucose,Random 138 mg/dL (74-106); Magnesium 1.5 mg/dL (1.5-2.5); Phosphorus 2.9 mg/dL (2.5-4.9); Potassium 4.2 meq/L (3.5-5.1); Sodium 128 meq/L (136-145); Total Protein 5.9 g/dL (6.4-8.2)
--- NOTE | 2018-01-29 06:50 | P.CONCA ---
History of Present Illness Service: Cardiology Consult date: 01/28/18 Primary Care Provider: Onofre Gimenez MD Family Provider: Onofre Gimenez MD Chief Complaint: Afib History of Present Illness: Mrs. Childers is a very pleasant 77 year old female with a past medical history of a subdural hemorrhage (treated with observation given the relative small size ) after sustaining a mechanical fall, HTN, HLD, ? DM2, breast cancer who presented with generalized weakness and dizziness. She was found to be in afib with RVR at a HR of 130 and was given a bolus of IV Cardizem which appeared to provide rate control. In review of her records, she presented with headaches and dizziness early this month and was also in atrial fibrillation. Her repeat CT at that time did not show any evidence of intracranial hemorrhage. Currently , she denies any CP/SOB/PND/orthopnea/LE. She remains in atrial fibrillation without RVR. Besides the subdural hemorrhage, no other documented events of bleeding. She states that she is not interested in pursuit of further therapy for her breast cancer including surgery, chemo, or radiation. She is still weighing her options regarding this. Upon initial arrival the patient was found to have signs of a UTI. In further discussion with the patient's daughter, the patient had an almost presyncopal episode a few days ago where she almost fell but was luckily caught. Review of Systems All other systems reviewed negative except as stated in HPI PMFSH - History History Provided By: Family Member - Medical History Medical History: Medical History (Last Reviewed 01/28/18 @ 13:11 by Eve Hendricks) Anxiety Breast cancer HX: breast cancer History of anxiety Hypercholesteremia Hypertension Ulcer - Surgical History Surgical History: Surgical History (Last Reviewed 01/28/18 @ 13:11 by Eve Hendricks) H/O tubal ligation History of History of biopsy Hx of appendectomy Hx of cholecystectomy - Family History Family History: Family History (Last Reviewed 01/05/18 @ 11:27 by Kole Luna MD) Other Family history of diabetes mellitus - Tobacco History Second Hand Smoke Exposure: No Tobacco Use In Past 30 Days: No Smoking Status: Never smoker - Alcohol History How Often Do You Have a Drink Containing Alcohol: Never - Substance Use History Substance History: No History of Abuse - Travel History Recent Travel in the [place] Within the Last 8 Weeks: No Recent Travel Out of the Country Within the Last 8 Weeks: No - Immunization History Tetanus Immunization: <5 Years Hx Influenza Vaccine This Season: Yes Medications and Allergies Active Medications: Active Medications Acetaminophen (Tylenol) 650 mg PO Q4H PRN PRN Reason: Temp > 100.4 Last Admin: 01/29/18 00:54 Dose: 650 mg Acetaminophen (Tylenol) 650 mg PO Q6HR PRN PRN Reason: HEADACHE Al Hydroxide/Mg Hydroxide (Milk Of Magnesia Liq) 30 ml PO Q12H PRN PRN Reason: Mild Constipation Alprazolam (Xanax) 0.5 mg PO TID PRN PRN Reason: Anxiety Bisacodyl (Dulcolax Supp) 10 mg RECTAL DAILY PRN PRN Reason: SEVERE CONSITIPATION Buspirone HCl (Buspar) 7.5 mg PO BID [facility] Last Admin: 01/28/18 20:08 Dose: 7.5 mg Dextrose (D50w Vial) 50 ml IV.PUSH UNSCH PRN PRN Reason: PER HYPOGLYCEMIA PROTOCOL Glucagon (Glucagon Inj) 1 mg OTHER PRN PRN PRN Reason: for Hypoglycemia Protocol Sodium Chloride (Ns Inj) 1,000 mls @ 100 mls/hr IV.CONT .Q10H [facility] Last Admin: 01/28/18 22:49 Dose: 100 mls/hr Cefepime HCl 2,000 mg/ Sodium (Chloride) 100 mls @ 200 mls/hr IV.SIG Q12H [facility] Last Infusion: 01/29/18 01:05 Dose: Infused Insulin Aspart (Novolog Insulin Correctional Sugar Inj) 0 unit SQ ACHS [facility]; Protocol Last Admin: 01/28/18 20:08 Dose: 1 unit Lactulose (Lactulose Liq) 30 ml PO DAILY PRN PRN Reason: SEVERE CONSITIPATION Metoprolol Tartrate (Lopressor) 25 mg PO BID [facility] Last Admin: 01/28/18 20:08 Dose: 25 mg Morphine Sulfate (Morphine Inj) 2 mg IV.PUSH Q3H PRN PRN Reason: PAIN 3-5; IF UABLE TO TAKE PO Morphine Sulfate (Morphine Inj) 4 mg IV.PUSH Q3H PRN PRN Reason: PAIN 6-10;IF UNABLE TO TAKE PO Morphine Sulfate (Morphine Inj) 4 mg IV.PUSH Q3H PRN PRN Reason: BREAKTHROUGH PAIN Naloxone HCl (Narcan Inj) 0.4 mg IV.PUSH UNSCH PRN PRN Reason: SEE LABEL COMMENTS Ondansetron HCl (Zofran Inj) 4 mg IV.PUSH Q6H PRN PRN Reason: NAUSEA OR VOMITING Oxycodone/Acetaminophen (Percocet 5/325 Mg) 1 tab PO Q6H PRN PRN Reason: PAIN SCALE 3 TO 5 Last Admin: 01/28/18 16:20 Dose: 1 tab Oxycodone/Acetaminophen (Percocet 10/325 Mg) 1 tab PO Q6H PRN PRN Reason: PAIN SCALE 6 TO 10 Pantoprazole Sodium (Protonix) 40 mg PO DAILY [facility] Last Admin: 01/28/18 08:09 Dose: 40 mg Pravastatin Sodium (Pravachol) 40 mg PO DAILY [facility] Last Admin: 01/28/18 08:09 Dose: 40 mg Senna/Docusate Sodium (Ginger-Colace) 1 tab PO BID [facility] Last Admin: 01/28/18 20:08 Dose: 1 tab Sennosides (Senokot) 17.2 mg PO Q12H PRN PRN Reason: Moderate Constipation Sucralfate (Carafate) 1 gm PO ACHS [facility] Last Admin: 01/28/18 20:08 Dose: 1 gm Allergies Allergy/AdvReac Type Severity Reaction Status Date / Time Sulfa (Sulfonamide Allergy Intermediate RASH Verified 01/27/18 20:30 Antibiotics) codeine Allergy Swelling Verified 01/27/18 20:30 of Lip/Tongue/Throat Home Medications Medication Instructions Recorded Confirmed Type alprazolam 0.5 mg PO TID PRN 11/15/17 01/27/18 History hydrocodone-acetaminophen 1 tab PO Q4-6H PRN 11/15/17 01/27/18 History lovastatin 40 mg PO DAILY 11/15/17 01/27/18 History pantoprazole 40 mg PO DAILY 11/15/17 01/27/18 History triamterene-hydrochlorothiazid 1 tab PO DAILY 11/15/17 01/27/18 History [id number] 1 tab PO DAILY 12/17/17 01/27/18 History [Centrum Silver Women] acetaminophen [Tylenol Extra 500 mg PO DIRECTED PRN 01/05/18 01/27/18 History Strength] ascorbic acid (vitamin C) [Vitamin 500 mg PO DAILY 01/05/18 01/27/18 History C] cyanocobalamin (vitamin B-12) 1,000 mcg PO DAILY 01/05/18 01/27/18 History [Vitamin B-12] buspirone 7.5 mg PO BID 01/27/18 01/27/18 History Exam Vital signs: Vital Signs 01/28/18 08:00 01/28/18 12:00 01/28/18 14:00 Temperature 98.5 F 98.7 F Pulse Rate 110 H 90 94 H Respiratory Rate 31 H 26 H Blood Pressure 103/58 L 99/48 L Pulse Oximetry 96 97 01/28/18 16:00 01/28/18 20:00 01/28/18 22:00 Temperature 98.8 F 99.3 F Pulse Rate 98 H 112 H 104 H Respiratory Rate 31 H 33 H Blood Pressure 124/59 L 130/62 Pulse Oximetry 97 01/29/18 00:00 01/29/18 02:00 01/29/18 04:00 Temperature 100.7 F H Pulse Rate 110 H 106 H 94 H Respiratory Rate 29 H 26 H Blood Pressure 102/57 L 104/55 L Pulse Oximetry 95 95 01/29/18 06:00 Temperature Pulse Rate 94 H Respiratory Rate Blood Pressure Pulse Oximetry Intake & Output 01/28/18 01/28/18 01/29/18 06:59 18:59 06:59 Intake Total 1340 / 1340 1580 / 1580 1050 / 1050 Output Total 1100 / 1100 250 / 250 Balance 240 / 240 1330 / 1330 1050 / 1050 Weight 69 kg Intake: IV 1100 / 1100 1100 / 1100 1050 / 1050 NS Inj 1,000 ML @ 100 mls/hr IV 1000 / 1000 950 / 950 .CONT .Q10H [facility] Rx#:[id number] Maxipime Inj 2,000 MG In NS Inj 100 / 100 100 / 100 100 ML @ 200 mls/hr IV.SIG Q12H [facility] Rx#:[id number] NS Inj 1,000 ML @ Wide Open IV. 1000 / 1000 SIG BOLUS [facility] Rx#:[id number] Rocephin Inj 1,000 MG In NS Inj 100 / 100 100 ML @ 200 mls/hr IV.SIG ONCE ONE Rx#:[id number] Oral 240 / 240 480 / 480 Output: Urine 900 / 900 Urine Amount (Catheter) 200 / 200 250 / 250 Female External 200 / 200 250 / 250 Other: # Voids 3 3 Date of Last Bowel Movement 01/27/18 01/28/18 01/28/18 # Bowel Movements 2 Weight On Admission 69 kg - Constitutional no acute distress Comments: frail appearance - Routine HEENT Exam Head: Present: normocephalic Eye: Present: EOMI, PERRL ENT: Present: mucous membranes moist - Routine Neck Exam Present: supple. Absent: JVD - Routine Respiratory Exam Present: CTA bilaterally - Routine Cardiovascular Exam Present: S1, S2, irregular rhythm - Routine Abdominal Exam Present: soft, normoactive bowel sounds. Absent: tenderness - Routine Extremities Exam Absent: edema - Routine Neurological Exam Present: alert, oriented X3 - Routine Psychiatric Exam Present: normal affect Results 01/29/18 04:50 01/29/18 04:50 Cardiac Enzymes 01/27/18 01/27/18 01/28/18 Range/Units 20:35 20:35 00:45 AST 31 (15-37) U/L Troponin I Less than 0.02 L Less than 0.02 L (0.02-0.05) ng/mL 01/28/18 01/29/18 Range/Units 03:28 04:50 AST 23 21 (15-37) U/L Troponin I Less than 0.02 L (0.02-0.05) ng/mL CBC 01/27/18 01/28/18 01/29/18 Range/Units 20:35 03:28 04:50 WBC 17.8 H 17.6 H 15.6 H (4.0-11.0) th/mm3 RBC 4.70 4.48 3.93 L (4.00-5.30) mil/mm3 Hgb 14.4 13.7 12.1 (11.6-15.3) gm/dL Hct 42.0 40.8 35.6 (35.0-46.0) % Plt Count 147 L D 127 L 110 L (150-450) th/mm3 Neut # (Auto) 15.6 H 15.1 H 13.6 H (1.8-7.7) th/mm3 Lymph # (Auto) 1.0 1.4 0.8 L (1.0-4.8) th/mm3 [place] # (Auto) 1.2 H 1.0 H 1.1 H (0.0-0.9) th/mm3 Eos # (Auto) 0.0 0.0 0.0 (0.0-0.4) th/mm3 Baso # (Auto) 0.0 0.0 0.0 (0.0-0.2) th/mm3 Comprehensive Metabolic Panel 01/27/18 01/28/18 01/29/18 Range/Units 20:35 03:28 04:50 Sodium 125 L 128 L 128 L (136-145) meq/L Potassium 3.8 4.0 4.2 (3.5-5.1) meq/L Chloride 88 L 92 L 97 L (98-107) meq/L Carbon Dioxide 26.8 24.0 21.6 (21.0-32.0) meq/L BUN 12 11 14 (7-18) mg/dL Creatinine 1.13 H 0.98 0.84 (0.50-1.00) mg/dL Calcium 8.5 8.1 L 8.2 L (8.5-10.1) mg/dL AST 31 23 21 (15-37) U/L ALT 41 34 27 (10-53) U/L Alkaline Phosphatase 99 90 89 (45-117) U/L Total Protein 7.1 6.6 5.9 L D (6.4-8.2) g/dL Albumin 3.0 L 2.7 L 2.1 L D (3.4-5.0) g/dL Intake and Output 01/28/18 01/28/18 01/29/18 14:59 22:59 06:59 Intake Total 1000 / 1000 1530 / 1530 100 / 100 Output Total 250 / 250 Balance 1000 / 1000 1280 / 1280 100 / 100 Intake: IV 1000 / 1000 1050 / 1050 100 / 100 NS Inj 1,000 ML @ 100 mls/hr IV 1000 / 1000 950 / 950 .CONT .Q10H [facility] Rx#:[id number] Maxipime Inj 2,000 MG In NS Inj 100 / 100 100 / 100 100 ML @ 200 mls/hr IV.SIG Q12H [facility] Rx#:[id number] Oral 480 / 480 Output: Urine Amount (Catheter) 250 / 250 Female External 250 / 250 Other: # Voids 3 Date of Last Bowel Movement 01/27/18 01/28/18 01/28/18 # Bowel Movements 2 - Imaging and Cardiology Imaging: Impressions Chest X-Ray 01/27/18 20:36 CONCLUSION: No acute cardiopulmonary disease. EKG interpretations - EKG EKG shows: atrial fibrillation Assessment and Plan - Plan Afib- not in AVR ([id number] 4-4.8 % stroke rate, HASBLED score of 3-5.8% of major bleed UTI HTN HLD Hx of Subdural Hematoma I had a lengthy discussion with the patient and her daughter. Her [id number] is at least 4 (if she is truly diabetic then it is a 5. Given her history of falls and what may have been a presyncopal episode, albeit probably related to UTI, she is at high risk for oral anticoagulation. She is a patient that would definitely benefit from a Watchman implantation intermediate, if she is able to demonstrate the ability to comply with a NOAC for at least a month as deemed by guidelines. At this juncture, I would focus on starting a BB to keep her resting HR less than 110. I would re-evaluate her as an outpatient for a trial of NOAC therapy with the ultimate plan of watchman implantation. A TTE has been order to further workup her presyncope. It is of note that her repeat CT on 01/05 did not show residual hemorrhage; however given her recent presyncopal episode, I would not feel as comfortable starting NOAC therapy right now. Since ASA doesn 't really have a benefit in patients with a [id number] of 2 or above, I would agree to hold it currently.
[2018-01-29] MEDS: Senna/Docusate Sodium 8.6/50 MG Tablet PO SCH ×2 (08:55→20:12)
[2018-01-29] MEDS: Insulin NovoLOG Aspart Correctional Sugar Inj SQ SCH ×4 (08:55→21:40)
[2018-01-29] MEDS: Sucralfate 1 GM Tablet PO SCH ×4 (09:11→20:11)
[2018-01-29] MEDS: Metoprolol Tartrate 25 MG Tablet PO SCH ×2 (09:11→20:12)
[2018-01-29] MEDS: Sod Chloride 0.9% Inj 1,000 ML IV.CONT SCH ×2 (09:11→20:11)
--- NOTE | 2018-01-29 11:27 | P.PNIM ---
Subjective Interval history: This is a 77-year-old female with a PMH of Breast CA, Anxiety, HTN and Hyperlipidemia who was brought to the ER by daughter secondary to complaints of generalized malaise, fever and dysuria x2-3 days. Has been taking OTC medications for UTI symptoms with no relief. Denies nausea, vomiting or diarrhea. On arrival, noted to be in A. fib with RVR, HR 130, BP 139/86, O2 sat 95% on RA, Temp 99.0. WBC 17.8. Platelets 147. Na 125. Creatinine 1.13. BS 257. Lactic Acid 2.4. UA positive for UTI. CXR with no acute findings. Denies h/o A-fib in the past, no c/o chest pain or SOB at this time. S/p Rocephin and Cardizem IV x1 dose, HR now 100's. 01-28 patient is in ICU due to atrial fibrillation. Has been seen by cardiology. Found to have gram-negative rods in blood We will adjust antibiotics Awake alert and oriented x3 talkative and cooperative A.m. labs PT and OT eval and treat 01-29 has E.COLI ESBL IN URINE CONSULT ID SWITCH TO ERTAPENEM SINCE HAS SOME COVERAGE AM LABS MOVE OUT OF ICU PT AND OT DW RN AND PT AND FAMILY Physical Exam Vital signs: Vital Signs 01/28/18 12:00 01/28/18 14:00 01/28/18 16:00 Temperature 98.7 F 98.8 F Pulse Rate 90 94 H 98 H Respiratory Rate 26 H 31 H Blood Pressure 99/48 L 124/59 L Pulse Oximetry 97 01/28/18 20:00 01/28/18 22:00 01/29/18 00:00 Temperature 99.3 F 100.7 F H Pulse Rate 112 H 104 H 110 H Respiratory Rate 33 H 29 H Blood Pressure 130/62 102/57 L Pulse Oximetry 97 95 01/29/18 02:00 01/29/18 04:00 01/29/18 06:00 Temperature 98.2 F Pulse Rate 106 H 94 H 94 H Respiratory Rate 26 H Blood Pressure 104/55 L Pulse Oximetry 95 01/29/18 08:00 01/29/18 10:00 Temperature 98.7 F Pulse Rate 112 H 85 Respiratory Rate 25 H Blood Pressure 128/72 Pulse Oximetry 96 Intake & Output 01/28/18 01/29/18 01/29/18 18:59 06:59 18:59 Intake Total 1580 / 1580 1550 / 1550 1000 / 1000 Output Total 250 / 250 250 / 250 Balance 1330 / 1330 1300 / 1300 1000 / 1000 Weight 71.8 kg Intake: IV 1100 / 1100 1050 / 1050 1000 / 1000 NS Inj 1,000 ML @ 100 mls/hr IV 1000 / 1000 950 / 950 1000 / 1000 .CONT .Q10H [facility] Rx#:[id number] Maxipime Inj 2,000 MG In NS Inj 100 / 100 100 / 100 100 ML @ 200 mls/hr IV.SIG Q12H [facility] Rx#:[id number] Oral 480 / 480 500 / 500 Output: Urine Amount (Catheter) 250 / 250 250 / 250 Female External 250 / 250 250 / 250 Other: # Voids 3 Date of Last Bowel Movement 01/28/18 01/28/18 01/28/18 # Bowel Movements 2 Narrative: GENERAL: Very pleasant elderly white female in no acute distress, appears weak/ tired. Daughter at bedside. Awake alert and oriented x3 talkative and cooperative SKIN: Focused skin assessment warm and dry. HEENT: PERRLA, EOMI. No scleral icterus or conjunctival pallor. No lid lag or facial droop. Tongue is midline CARDIOVASCULAR: A. fib CONTROLLED, HR 100's. No obvious murmurs to auscultation. No chest tenderness to palpation. Irregularly irregular RESPIRATORY: No obvious rhonchi or wheezing. Clear to auscultation. Breath sounds equal bilaterally. GASTROINTESTINAL: Abdomen soft, non-tender, nondistended. BS normal. MUSCULOSKELETAL: Extremities without clubbing, cyanosis, or edema. No obvious deformities. NEUROLOGICAL: Awake, alert and oriented x4. No focal neurologic deficits. Moving both upper and lower extremities spontaneously. PSYCHIATRIC: Appropriate mood and affect. Insight and judgment normal. - Urinary Catheter Management Female External Cath placed during this visit: no Results - Labs CBC & Chem 7: 01/29/18 04:50 01/29/18 04:50 Laboratory Results - last 24 hr 01/27/18 01/28/18 01/28/18 22:35 03:28 03:28 WBC RBC Hgb Hct MCV MCH MCHC RDW Plt Count MPV Neut % (Auto) Lymph % (Auto) [place] % (Auto) Eos % (Auto) Baso % (Auto) Neut # (Auto) Lymph # (Auto) [place] # (Auto) Eos # (Auto) Baso # (Auto) WBC Differential Differential Comment Sodium Potassium Chloride Carbon Dioxide Anion Gap BUN Creatinine Estimated GFR POC Glucose Random Glucose Hemoglobin A1c 6.3 H Calcium Phosphorus Magnesium Total Bilirubin AST ALT Alkaline Phosphatase Total Protein Albumin TSH Free T4 1.47 H Urine Color Yellow Urine Clarity Cloudy H Urine pH 6.0 Ur Specific [place] 1.007 Urine Protein 30 H Urine Glucose (UA) 500 or greater Urine Ketones Negative Urine Occult Blood Small H Urine Nitrate Negative Urine Bilirubin Negative Urine Urobilinogen 2.0 H Ur Leukocyte Esterase Large H Urine RBC 6 H Urine WBC Urine WBC Clumps Occasional H Ur Squamous Epith Cells <1 Urine Bacteria Few H Urine Mucus Few H Micro UA Comment Culture indicated Urine Culture Comments Culture indicated 01/28/18 01/28/18 01/28/18 03:28 13:18 17:38 WBC RBC Hgb Hct MCV MCH MCHC RDW Plt Count MPV Neut % (Auto) Lymph % (Auto) [place] % (Auto) Eos % (Auto) Baso % (Auto) Neut # (Auto) Lymph # (Auto) [place] # (Auto) Eos # (Auto) Baso # (Auto) WBC Differential Differential Comment Sodium Potassium Chloride Carbon Dioxide Anion Gap BUN Creatinine Estimated GFR POC Glucose 143 H 198 H Random Glucose Hemoglobin A1c Calcium Phosphorus Magnesium Total Bilirubin AST ALT Alkaline Phosphatase Total Protein Albumin TSH 0.980 Free T4 Urine Color Urine Clarity Urine pH Ur Specific [place] Urine Protein Urine Glucose (UA) Urine Ketones Urine Occult Blood Urine Nitrate Urine Bilirubin Urine Urobilinogen Ur Leukocyte Esterase Urine RBC Urine WBC Urine WBC Clumps Ur Squamous Epith Cells Urine Bacteria Urine Mucus Micro UA Comment Urine Culture Comments 01/28/18 01/29/18 01/29/18 20:03 04:50 04:50 WBC 15.6 H RBC 3.93 L Hgb 12.1 Hct 35.6 MCV 90.5 MCH 30.8 MCHC 34.0 RDW 14.2 Plt Count 110 L MPV 9.2 Neut % (Auto) 87.2 H Lymph % (Auto) 5.1 L [place] % (Auto) 7.3 Eos % (Auto) 0.1 Baso % (Auto) 0.3 Neut # (Auto) 13.6 H Lymph # (Auto) 0.8 L [place] # (Auto) 1.1 H Eos # (Auto) 0.0 Baso # (Auto) 0.0 WBC Differential . Differential Comment Auto diff final Sodium 128 L Potassium 4.2 Chloride 97 L Carbon Dioxide 21.6 Anion Gap 9 BUN 14 Creatinine 0.84 Estimated GFR 66 L POC Glucose 186 H Random Glucose 138 H Hemoglobin A1c Calcium 8.2 L Phosphorus 2.9 Magnesium 1.5 Total Bilirubin 1.6 H AST 21 ALT 27 Alkaline Phosphatase 89 Total Protein 5.9 L D Albumin 2.1 L D TSH Free T4 Urine Color Urine Clarity Urine pH Ur Specific [place] Urine Protein Urine Glucose (UA) Urine Ketones Urine Occult Blood Urine Nitrate Urine Bilirubin Urine Urobilinogen Ur Leukocyte Esterase Urine RBC Urine WBC Urine WBC Clumps Ur Squamous Epith Cells Urine Bacteria Urine Mucus Micro UA Comment Urine Culture Comments 01/29/18 07:50 WBC RBC Hgb Hct MCV MCH MCHC RDW Plt Count MPV Neut % (Auto) Lymph % (Auto) [place] % (Auto) Eos % (Auto) Baso % (Auto) Neut # (Auto) Lymph # (Auto) [place] # (Auto) Eos # (Auto) Baso # (Auto) WBC Differential Differential Comment Sodium Potassium Chloride Carbon Dioxide Anion Gap BUN Creatinine Estimated GFR POC Glucose 120 H Random Glucose Hemoglobin A1c Calcium Phosphorus Magnesium Total Bilirubin AST ALT Alkaline Phosphatase Total Protein Albumin TSH Free T4 Urine Color Urine Clarity Urine pH Ur Specific [place] Urine Protein Urine Glucose (UA) Urine Ketones Urine Occult Blood Urine Nitrate Urine Bilirubin Urine Urobilinogen Ur Leukocyte Esterase Urine RBC Urine WBC Urine WBC Clumps Ur Squamous Epith Cells Urine Bacteria Urine Mucus Micro UA Comment Urine Culture Comments Microbiology 01/27/18 20:35 Blood - Peripheral Aerobic Blood Culture - Preliminary No growth in 2 days 01/27/18 20:35 Blood - Peripheral Anaerobic Blood Culture - Preliminary gram negative rods 01/27/18 22:35 Clean Catch Urine Urine Culture - Final Escherichia coli ESBL positive 01/27/18 20:43 Blood - Peripheral Aerobic Blood Culture - Preliminary gram negative rods 01/27/18 20:43 Blood - Peripheral Anaerobic Blood Culture - Preliminary gram negative rods - Imaging ITS Impressions Chest X-Ray 01/27/18 20:36 CONCLUSION: No acute cardiopulmonary disease. Assessment and Plan - Assessment (1) Sepsis Code(s): A41.9 - Sepsis, unspecified organism Status: Acute (2) UTI (urinary tract infection) Code(s): N39.0 - Urinary tract infection, site not specified Status: Acute (3) Atrial fibrillation with RVR Code(s): I48.91 - Unspecified atrial fibrillation Status: Acute (4) Hyperglycemia Code(s): R73.9 - Hyperglycemia, unspecified Status: Acute (5) Breast cancer Code(s): C50.919 - Malignant neoplasm of unspecified site of unspecified female breast Status: Acute - Plan 1. Sepsis: Temp 99.0, HR 130, WBC 14, Lactic Acid 2.4, Source-UTI, s/p Blood cultures, Rocephin IV, continue w/ IV Abx, IVF for hydration, repeat Lactic Acid , follow up cultures. Positive for gram-negative rods 2. UTI: U/a w/ significant UTI, continue ERTAPENEM E.COLI UT follow up urine cultures, monitor I/O, IVF. Gram-negative rods 3. A-fib w/ RVR: No h/o A-fib, possibly compounded by acute Sepsis/UTI, HR 130 's on arrival, s/p Cardizem IV x1 w/ improvement, HR now 90-100's, will monitor closely, Cardizem gtt if needed, Telemetry, check Echo to eval for valvular abnormality/cardiomyopathy, Consult Cardiology for further eval/intervention. Hold ASA in light of h/o SDH, continue home Statin. Have been adjusted by cardiology 4. Hyperglycemia: BS 257, Daughter notes pt was told she was "prediabetic", previously prescribed Metformin, however discontinued due to side effects. Check Hgb A1c, sliding scale w/ Accu-checks. Positive diabetes 5. Breast CA: recent diagnosis, s/p eval by Dr. Prescott, not currently on treatment, pending second opinion. 6. DVT Prophylaxis: Pharmacologic contraindication, h/o recent SDH. 7. Social work for d/c planning as needed PT and OT to eval and treat Adjust antibiotics CONSULT ID Discussed with RN and patient and family Code Status: FULL CODE Discussed Condition With: RN AND PT AND FAMILY Discharge Planning: Pending cardiac improvement and treatment of her infection (5) Breast cancer Qualifiers: Breast location: unspecified site of breast Estrogen receptor status: unspecified Patient sex: female Laterality: bilateral Qualified Code(s): C50.911 - Malignant neoplasm of unspecified site of right female breast; C50.912 - Malignant neoplasm of unspecified site of left female breast
--- NOTE | 2018-01-29 16:50 | P.CONID ---
History of Present Illness Service: ID Consult date: 01/29/18 Requesting Physician: Jerman Frances Reason for Consult: E.COLI ESBL UTI Primary Care Provider: Onofre Gimenez MD Family Provider: Onofre Gimenez MD Chief Complaint: Afib History of Present Illness: pt is a 77 y.o. female with multiple med probles and dementia and is unable to provide meaningfull history records were reviewed Pt has a h/o of Breast CA, Anxiety, HTN and Hyperlipidemia and per records she was brought to the ER by daughter secondary to complaints of generalized malaise , fever and dysuria x2-3 days. Presented with low grade fever up to 100.2 F and 17 K WBC Pt was admitted to ICU 2/2 Afib with RVR and also was noted to have abnormal UA with pyuria Her urine clx grew ESBL+ E.coli and / blood clx were positive for GNR Pt is clinically stable, agfebrile c urrently Pt's abx were approprietly changed to Ertapenem PMFSH - History History Provided By: Family Member - Medical History Medical History: Medical History (Last Reviewed 01/29/18 @ 19:32 by Gloria Neville MD) Anxiety Breast cancer HX: breast cancer History of anxiety Hypercholesteremia Hypertension Ulcer - Surgical History Surgical History: Surgical History (Last Reviewed 01/29/18 @ 19:32 by Gloria Neville MD) H/O tubal ligation History of History of biopsy Hx of appendectomy Hx of cholecystectomy - Family History Family History: Family History (Last Reviewed 01/29/18 @ 19:33 by Gloria Neville MD) Other Family history of diabetes mellitus - Social History I have reviewed the patient's Social History: Yes - Tobacco History Second Hand Smoke Exposure: No Tobacco Use In Past 30 Days: No Smoking Status: Never smoker - Alcohol History How Often Do You Have a Drink Containing Alcohol: Never - Substance Use History Substance History: No History of Abuse - Travel History Recent Travel in the [place] Within the Last 8 Weeks: No Recent Travel Out of the Country Within the Last 8 Weeks: No - Immunization History Tetanus Immunization: <5 Years Hx Influenza Vaccine This Season: Yes Medications and Allergies Active Medications: Active Medications Acetaminophen (Tylenol) 650 mg PO Q4H PRN PRN Reason: Temp > 100.4 Last Admin: 01/29/18 00:54 Dose: 650 mg Acetaminophen (Tylenol) 650 mg PO Q6HR PRN PRN Reason: HEADACHE Al Hydroxide/Mg Hydroxide (Milk Of Magnesia Liq) 30 ml PO Q12H PRN PRN Reason: Mild Constipation Alprazolam (Xanax) 0.5 mg PO TID PRN PRN Reason: Anxiety Bisacodyl (Dulcolax Supp) 10 mg RECTAL DAILY PRN PRN Reason: SEVERE CONSITIPATION Buspirone HCl (Buspar) 7.5 mg PO BID [facility] Last Admin: 01/29/18 09:00 Dose: 7.5 mg Dextrose (D50w Vial) 50 ml IV.PUSH UNSCH PRN PRN Reason: PER HYPOGLYCEMIA PROTOCOL Glucagon (Glucagon Inj) 1 mg OTHER PRN PRN PRN Reason: for Hypoglycemia Protocol Sodium Chloride (Ns Inj) 1,000 mls @ 100 mls/hr IV.CONT .Q10H [facility] Last Admin: 01/29/18 09:11 Dose: 100 mls/hr Ertapenem 1,000 mg/ Sodium (Chloride) 100 mls @ 200 mls/hr IV.SIG Q24H [facility] Last Infusion: 01/29/18 14:48 Dose: Infused Insulin Aspart (Novolog Insulin Correctional Sugar Inj) 0 unit SQ [facility]; Protocol Last Admin: 01/29/18 16:33 Dose: 3 unit Lactulose (Lactulose Liq) 30 ml PO DAILY PRN PRN Reason: SEVERE CONSITIPATION Metoprolol Tartrate (Lopressor) 25 mg PO BID [facility] Last Admin: 01/29/18 09:11 Dose: 25 mg Morphine Sulfate (Morphine Inj) 2 mg IV.PUSH Q3H PRN PRN Reason: PAIN 3-5; IF UABLE TO TAKE PO Morphine Sulfate (Morphine Inj) 4 mg IV.PUSH Q3H PRN PRN Reason: PAIN 6-10;IF UNABLE TO TAKE PO Morphine Sulfate (Morphine Inj) 4 mg IV.PUSH Q3H PRN PRN Reason: BREAKTHROUGH PAIN Naloxone HCl (Narcan Inj) 0.4 mg IV.PUSH UNSCH PRN PRN Reason: SEE LABEL COMMENTS Ondansetron HCl (Zofran Inj) 4 mg IV.PUSH Q6H PRN PRN Reason: NAUSEA OR VOMITING Last Admin: 01/29/18 15:22 Dose: 4 mg Oxycodone/Acetaminophen (Percocet 5/325 Mg) 1 tab PO Q6H PRN PRN Reason: PAIN SCALE 3 TO 5 Last Admin: 01/29/18 15:22 Dose: 1 tab Oxycodone/Acetaminophen (Percocet 10/325 Mg) 1 tab PO Q6H PRN PRN Reason: PAIN SCALE 6 TO 10 Pantoprazole Sodium (Protonix) 40 mg PO DAILY [facility] Last Admin: 01/29/18 09:11 Dose: 40 mg Pravastatin Sodium (Pravachol) 40 mg PO DAILY [facility] Last Admin: 01/29/18 09:10 Dose: 40 mg Senna/Docusate Sodium (Ginger-Colace) 1 tab PO BID [facility] Last Admin: 01/29/18 08:55 Dose: Not Given Sennosides (Senokot) 17.2 mg PO Q12H PRN PRN Reason: Moderate Constipation Sucralfate (Carafate) 1 gm PO ACHS [facility] Last Admin: 01/29/18 16:33 Dose: 1 gm Allergies Allergy/AdvReac Type Severity Reaction Status Date / Time Sulfa (Sulfonamide Allergy Intermediate RASH Verified 01/27/18 20:30 Antibiotics) codeine Allergy Swelling Verified 01/27/18 20:30 of Lip/Tongue/Throat Home Medications Medication Instructions Recorded Confirmed Type alprazolam 0.5 mg PO TID PRN 11/15/17 01/27/18 History hydrocodone-acetaminophen 1 tab PO Q4-6H PRN 11/15/17 01/27/18 History lovastatin 40 mg PO DAILY 11/15/17 01/27/18 History pantoprazole 40 mg PO DAILY 11/15/17 01/27/18 History triamterene-hydrochlorothiazid 1 tab PO DAILY 11/15/17 01/27/18 History wcohocqm-fba-vtau-FA-lutein 1 tab PO DAILY 12/17/17 01/27/18 History [Centrum Silver Women] acetaminophen [Tylenol Extra 500 mg PO DIRECTED PRN 01/05/18 01/27/18 History Strength] ascorbic acid (vitamin C) [Vitamin 500 mg PO DAILY 01/05/18 01/27/18 History C] cyanocobalamin (vitamin B-12) 1,000 mcg PO DAILY 01/05/18 01/27/18 History [Vitamin B-12] buspirone 7.5 mg PO BID 01/27/18 01/27/18 History Exam Vital signs: Vital Signs 01/28/18 20:00 01/28/18 22:00 01/29/18 00:00 Temperature 99.3 F 100.7 F H Pulse Rate 112 H 104 H 110 H Respiratory Rate 33 H 29 H Blood Pressure 130/62 102/57 L Pulse Oximetry 97 95 01/29/18 02:00 01/29/18 04:00 01/29/18 06:00 Temperature 98.2 F Pulse Rate 106 H 94 H 94 H Respiratory Rate 26 H Blood Pressure 104/55 L Pulse Oximetry 95 01/29/18 08:00 01/29/18 10:00 01/29/18 12:00 Temperature 98.7 F 100.2 F H Pulse Rate 112 H 85 102 H Respiratory Rate 25 H 22 Blood Pressure 128/72 138/63 Pulse Oximetry 96 97 01/29/18 14:00 Temperature Pulse Rate 106 H Respiratory Rate Blood Pressure Pulse Oximetry Intake & Output 01/28/18 01/29/18 01/29/18 18:59 06:59 18:59 Intake Total 1580 / 1580 1550 / 1550 1100 / 1100 Output Total 250 / 250 250 / 250 Balance 1330 / 1330 1300 / 1300 1100 / 1100 Weight 71.8 kg Intake: IV 1100 / 1100 1050 / 1050 1100 / 1100 NS Inj 1,000 ML @ 100 mls/hr IV 1000 / 1000 950 / 950 1000 / 1000 .CONT .Q10H [facility] Rx#:[id number] Maxipime Inj 2,000 MG In NS Inj 100 / 100 100 / 100 100 ML @ 200 mls/hr IV.SIG Q12H [facility] Rx#:[id number] INVanz Inj 1,000 MG In NS Inj 100 / 100 100 ML @ 200 mls/hr IV.SIG Q24H [facility] Rx#:[id number] Oral 480 / 480 500 / 500 Output: Urine Amount (Catheter) 250 / 250 250 / 250 Female External 250 / 250 250 / 250 Other: # Voids 3 Date of Last Bowel Movement 01/28/18 01/28/18 01/28/18 # Bowel Movements 2 - Constitutional no acute distress, average body habitus - Routine HEENT Exam Head: Present: normocephalic, atraumatic Eye: Present: EOMI, PERRL. Absent: conjunctival icterus ENT: Present: mucous membranes moist, oropharynx clear - Routine Neck Exam Present: supple, full ROM - Routine Respiratory Exam Present: CTA bilaterally. Absent: accessory muscle use, rhonchi - Routine Cardiovascular Exam Present: RRR, S1, S2 - Routine Abdominal Exam Present: soft, normoactive bowel sounds. Absent: tenderness, distended, rigid, organomegaly, mass - Routine Extremities Exam Absent: cyanosis, clubbing, edema - Routine Skin Exam Present: dry, warm. Absent: cyanosis, rash - Routine Neurological Exam Present: alert, CN II-XII intact, moving all extremities, vision grossly intact , hearing grossly intact, normal speech. Absent: oriented X3 (oriented x 1) - Routine Psychiatric Exam Present: normal affect, cooperative Results - Labs CBC & Chem 7: 01/29/18 04:50 01/29/18 04:50 Labs: Laboratory Results - last 24 hr 01/28/18 01/28/18 01/28/18 03:28 17:38 20:03 WBC RBC Hgb Hct MCV MCH MCHC RDW Plt Count MPV Neut % (Auto) Lymph % (Auto) [place] % (Auto) Eos % (Auto) Baso % (Auto) Neut # (Auto) Lymph # (Auto) [place] # (Auto) Eos # (Auto) Baso # (Auto) WBC Differential Differential Comment Sodium Potassium Chloride Carbon Dioxide Anion Gap BUN Creatinine Estimated GFR POC Glucose 198 H 186 H Random Glucose Hemoglobin A1c 6.3 H Calcium Phosphorus Magnesium Total Bilirubin AST ALT Alkaline Phosphatase Total Protein Albumin 01/29/18 01/29/18 01/29/18 04:50 04:50 07:50 WBC 15.6 H RBC 3.93 L Hgb 12.1 Hct 35.6 MCV 90.5 MCH 30.8 MCHC 34.0 RDW 14.2 Plt Count 110 L MPV 9.2 Neut % (Auto) 87.2 H Lymph % (Auto) 5.1 L [place] % (Auto) 7.3 Eos % (Auto) 0.1 Baso % (Auto) 0.3 Neut # (Auto) 13.6 H Lymph # (Auto) 0.8 L [place] # (Auto) 1.1 H Eos # (Auto) 0.0 Baso # (Auto) 0.0 WBC Differential . Differential Comment Auto diff final Sodium 128 L Potassium 4.2 Chloride 97 L Carbon Dioxide 21.6 Anion Gap 9 BUN 14 Creatinine 0.84 Estimated GFR 66 L POC Glucose 120 H Random Glucose 138 H Hemoglobin A1c Calcium 8.2 L Phosphorus 2.9 Magnesium 1.5 Total Bilirubin 1.6 H AST 21 ALT 27 Alkaline Phosphatase 89 Total Protein 5.9 L D Albumin 2.1 L D 01/29/18 01/29/18 11:52 15:33 WBC RBC Hgb Hct MCV MCH MCHC RDW Plt Count MPV Neut % (Auto) Lymph % (Auto) [place] % (Auto) Eos % (Auto) Baso % (Auto) Neut # (Auto) Lymph # (Auto) [place] # (Auto) Eos # (Auto) Baso # (Auto) WBC Differential Differential Comment Sodium Potassium Chloride Carbon Dioxide Anion Gap BUN Creatinine Estimated GFR POC Glucose 117 H 213 H Random Glucose Hemoglobin A1c Calcium Phosphorus Magnesium Total Bilirubin AST ALT Alkaline Phosphatase Total Protein Albumin - Imaging ITS Impressions Chest X-Ray 01/27/18 20:36 CONCLUSION: No acute cardiopulmonary disease. Assessment and Plan - Plan ESBL+ E.coli UTI HIgh gradfe sepsis from UTI cont Ertapenem fu GNR for final ID/S will follow
[2018-01-30] MEDS: Sod Chloride 0.9% Inj 1,000 ML IV.CONT SCH ×2 (05:42→14:50)
[2018-01-30 06:09] LABS: Baso % (Auto) 0.1 % (0.0-2.0); Eos # (Auto) 0.1 th/mm3 (0.0-0.4); Eos % (Auto) 0.3 % (0.0-4.0); Hematocrit 35.6 % (35.0-46.0); Hemoglobin 12.3 gm/dL (11.6-15.3); Lymph # (Auto) 0.8 th/mm3 (1.0-4.8); Lymph % (Auto) 4.4 % (9.0-44.0); Mean Corpuscular HGB Conc 34.4 % (32.0-36.0); Mean Corpuscular Hemoglobin 30.8 pg (27.0-34.0); Mean Corpuscular Volume 89.5 fL (80.0-100.0); Mean Platelet Volume 8.7 fL (7.0-11.0); Mono # (Auto) 1.4 th/mm3 (0.0-0.9); Mono % (Auto) 8.5 % (0.0-8.0); Neut # (Auto) 14.7 th/mm3 (1.8-7.7); Neut % (Auto) 86.7 % (16.0-70.0); Platelet Count 124 th/mm3 (150-450); Red Blood Count 3.98 mil/mm3 (4.00-5.30); Red Cell Distribution Width 13.9 % (11.6-17.2); White Blood Count 16.9 th/mm3 (4.0-11.0)
[2018-01-30 06:38] LABS: Anion Gap 10 meq/L (5-15); Aspartate Aminotransferase 19 U/L (15-37); Blood Urea Nitrogen 12 mg/dL (7-18); Carbon Dioxide 22.2 meq/L (21.0-32.0); Chloride 98 meq/L (98-107); Glomerular Filtration Rate 74 mL/min (>89); Glucose,Random 110 mg/dL (74-106); Magnesium 1.5 mg/dL (1.5-2.5); Potassium 3.5 meq/L (3.5-5.1); Sodium 130 meq/L (136-145)
[2018-01-30 06:39] LABS: Alanine Aminotransferase 25 U/L (10-53); Phosphorus 2.3 mg/dL (2.5-4.9)
[2018-01-30 06:41] LABS: Alkaline Phosphatase 108 U/L (45-117); Total Protein 5.8 g/dL (6.4-8.2)
[2018-01-30] MEDS: Senna/Docusate Sodium 8.6/50 MG Tablet PO SCH ×2 (08:32→20:38)
[2018-01-30] MEDS: Sucralfate 1 GM Tablet PO SCH ×4 (08:32→20:38)
[2018-01-30] MEDS: Insulin NovoLOG Aspart Correctional Sugar Inj SQ SCH ×4 (08:32→21:19)
[2018-01-30] MEDS: Metoprolol Tartrate 25 MG Tablet PO SCH ×2 (08:32→20:38)
--- NOTE | 2018-01-30 12:03 | P.PNIM ---
Subjective Interval history: This is a 77-year-old female with a PMH of Breast CA, Anxiety, HTN and Hyperlipidemia who was brought to the ER by daughter secondary to complaints of generalized malaise, fever and dysuria x2-3 days. Has been taking OTC medications for UTI symptoms with no relief. Denies nausea, vomiting or diarrhea. On arrival, noted to be in A. fib with RVR, HR 130, BP 139/86, O2 sat 95% on RA, Temp 99.0. WBC 17.8. Platelets 147. Na 125. Creatinine 1.13. BS 257. Lactic Acid 2.4. UA positive for UTI. CXR with no acute findings. Denies h/o A-fib in the past, no c/o chest pain or SOB at this time. S/p Rocephin and Cardizem IV x1 dose, HR now 100's. 01-28 patient is in ICU due to atrial fibrillation. Has been seen by cardiology. Found to have gram-negative rods in blood We will adjust antibiotics Awake alert and oriented x3 talkative and cooperative A.m. labs PT and OT eval and treat 01-29 has E.COLI ESBL IN URINE CONSULT ID SWITCH TO ERTAPENEM SINCE HAS SOME COVERAGE AM LABS MOVE OUT OF ICU PT AND OT CARLOS RN AND PT AND FAMILY 01-30 on ertapenem MORE ALERT TODAY NEEDS TO WORK WITH PT AND OT CARLOS RN AND PT AND FAMILY AWAIT TRANSFER WAS MOBILE AT HOME PRIOR TO HOSPITALIZATION Physical Exam Vital signs: Vital Signs 01/29/18 14:00 01/29/18 15:15 01/29/18 15:30 Temperature Pulse Rate 106 H 102 H 99 H Respiratory Rate 51 H 46 H Blood Pressure 130/57 L 133/80 Pulse Oximetry 96 97 01/29/18 15:45 01/29/18 16:00 01/29/18 16:15 Temperature 98.9 F Pulse Rate 98 H 96 H 94 H Respiratory Rate 46 H 45 H 33 H Blood Pressure 125/58 L 105/52 L 101/46 L Pulse Oximetry 97 94 L 95 01/29/18 16:30 01/29/18 16:45 01/29/18 17:00 Temperature Pulse Rate 93 H 93 H 88 Respiratory Rate 41 H 37 H 34 H Blood Pressure 109/54 L 107/52 L 118/57 L Pulse Oximetry 97 97 98 01/29/18 17:15 01/29/18 17:30 01/29/18 17:45 Temperature Pulse Rate 91 H 92 H 91 H Respiratory Rate 49 H 39 H 37 H Blood Pressure 114/55 L 106/76 126/72 Pulse Oximetry 97 97 98 01/29/18 18:00 01/29/18 18:05 01/29/18 18:06 Temperature Pulse Rate 94 H 97 H Respiratory Rate Blood Pressure 167/84 H Pulse Oximetry 99 99 01/29/18 18:15 01/29/18 18:30 01/29/18 18:45 Temperature Pulse Rate 96 H 96 H 99 H Respiratory Rate 52 H 34 H 36 H Blood Pressure 156/94 H 179/86 H 158/69 H Pulse Oximetry 99 100 97 01/29/18 19:00 01/29/18 19:15 01/29/18 19:30 Temperature Pulse Rate 99 H 107 H 103 H Respiratory Rate 43 H 52 H 45 H Blood Pressure 173/99 H 191/86 H 166/82 H Pulse Oximetry 99 94 L 97 01/29/18 19:45 01/29/18 20:00 01/29/18 20:15 Temperature 98.7 F Pulse Rate 106 H 108 H 106 H Respiratory Rate 39 H 30 H 29 H Blood Pressure 179/81 H 155/74 H 152/84 H Pulse Oximetry 97 95 98 01/29/18 21:00 01/29/18 22:00 01/29/18 23:00 Temperature Pulse Rate 107 H 97 H 88 Respiratory Rate 96 H 35 H 41 H Blood Pressure Pulse Oximetry 96 96 96 01/30/18 00:00 01/30/18 00:25 01/30/18 01:00 Temperature 99.2 F Pulse Rate 87 87 87 Respiratory Rate 23 29 H 23 Blood Pressure 114/59 L Pulse Oximetry 95 98 97 01/30/18 02:00 01/30/18 04:00 01/30/18 05:40 Temperature 98.1 F Pulse Rate 90 94 H Respiratory Rate 20 Blood Pressure 138/82 Pulse Oximetry 97 01/30/18 06:00 01/30/18 08:00 01/30/18 10:00 Temperature 98.8 F Pulse Rate 94 H 102 H 94 H Respiratory Rate 25 H Blood Pressure 140/61 Pulse Oximetry 95 Intake & Output 01/29/18 01/30/18 01/30/18 18:59 06:59 18:59 Intake Total 1340 / 1340 2650 / 2650 Output Total 650 / 650 801 / 801 Balance 690 / 690 1849 / 1849 Intake: IV 1100 / 1100 1999 / 1999 NS Inj 1,000 ML @ 100 mls/hr IV 1000 / 1000 1999 .CONT .Q10H [facility] Rx#:[id number] INVanz Inj 1,000 MG In NS Inj 100 / 100 100 ML @ 200 mls/hr IV.SIG Q24H [facility] Rx#:[id number] Oral 240 / 240 650 / 650 Output: Urine 800 / 800 Stool 1 / Urine Amount (Catheter) 650 / 650 Female External 650 / 650 Other: # Incontinent Voids 2 Date of Last Bowel Movement 01/29/18 01/29/18 01/29/18 # Bowel Movements 2 Narrative: GENERAL: Very pleasant elderly white female in no acute distress, appears weak/ tired. Daughter at bedside. Awake alert and oriented x3 talkative and cooperative SKIN: Focused skin assessment warm and dry. HEENT: PERRLA, EOMI. No scleral icterus or conjunctival pallor. No lid lag or facial droop. Tongue is midline CARDIOVASCULAR: A. fib CONTROLLED, HR 100's. No obvious murmurs to auscultation. No chest tenderness to palpation. Irregularly irregular RESPIRATORY: No obvious rhonchi or wheezing. Clear to auscultation. Breath sounds equal bilaterally. GASTROINTESTINAL: Abdomen soft, non-tender, nondistended. BS normal. MUSCULOSKELETAL: Extremities without clubbing, cyanosis, or edema. No obvious deformities. NEUROLOGICAL: Awake, alert and oriented x4. No focal neurologic deficits. Moving both upper and lower extremities spontaneously. PSYCHIATRIC: Appropriate mood and affect. Insight and judgment normal. - Urinary Catheter Management Female External Cath placed during this visit: no Results - Labs CBC & Chem 7: 01/30/18 05:34 01/30/18 05:34 Laboratory Results - last 24 hr 01/29/18 01/29/18 01/30/18 15:33 21:31 05:34 WBC 16.9 H RBC 3.98 L Hgb 12.3 Hct 35.6 MCV 89.5 MCH 30.8 MCHC 34.4 RDW 13.9 Plt Count 124 L MPV 8.7 Neut % (Auto) 86.7 H Lymph % (Auto) 4.4 L [place] % (Auto) 8.5 H Eos % (Auto) 0.3 Baso % (Auto) 0.1 Neut # (Auto) 14.7 H Lymph # (Auto) 0.8 L [place] # (Auto) 1.4 H Eos # (Auto) 0.1 Baso # (Auto) 0.0 WBC Differential . Differential Comment Auto diff final Sodium Potassium Chloride Carbon Dioxide Anion Gap BUN Creatinine Estimated GFR POC Glucose 213 H 194 H Random Glucose Calcium Phosphorus Magnesium Total Bilirubin AST ALT Alkaline Phosphatase Total Protein Albumin 01/30/18 01/30/18 01/30/18 05:34 07:35 11:12 WBC RBC Hgb Hct MCV MCH MCHC RDW Plt Count MPV Neut % (Auto) Lymph % (Auto) [place] % (Auto) Eos % (Auto) Baso % (Auto) Neut # (Auto) Lymph # (Auto) [place] # (Auto) Eos # (Auto) Baso # (Auto) WBC Differential Differential Comment Sodium 130 L Potassium 3.5 Chloride 98 Carbon Dioxide 22.2 Anion Gap 10 BUN 12 Creatinine 0.76 Estimated GFR 74 L POC Glucose 107 150 H Random Glucose 110 H Calcium 8.0 L Phosphorus 2.3 L Magnesium 1.5 Total Bilirubin 1.1 H AST 19 ALT 25 Alkaline Phosphatase 108 Total Protein 5.8 L Albumin 2.0 L Microbiology 01/27/18 20:35 Blood - Peripheral Aerobic Blood Culture - Final Escherichia coli ESBL positive 01/27/18 20:35 Blood - Peripheral Anaerobic Blood Culture - Final Escherichia coli ESBL positive 01/27/18 20:43 Blood - Peripheral Aerobic Blood Culture - Final Escherichia coli ESBL positive 01/27/18 20:43 Blood - Peripheral Anaerobic Blood Culture - Final Escherichia coli ESBL positive 01/27/18 22:35 Clean Catch Urine Urine Culture - Final Escherichia coli ESBL positive - Imaging ITS Impressions Chest X-Ray 01/27/18 20:36 CONCLUSION: No acute cardiopulmonary disease. - Procedures NONE Assessment and Plan - Assessment (1) Sepsis Code(s): A41.9 - Sepsis, unspecified organism Status: Acute (2) UTI (urinary tract infection) Code(s): N39.0 - Urinary tract infection, site not specified Status: Acute (3) Atrial fibrillation with RVR Code(s): I48.91 - Unspecified atrial fibrillation Status: Acute (4) Hyperglycemia Code(s): R73.9 - Hyperglycemia, unspecified Status: Acute (5) Breast cancer Code(s): C50.919 - Malignant neoplasm of unspecified site of unspecified female breast Status: Acute - Plan 1. Sepsis: Temp 99.0, HR 130, WBC 14, Lactic Acid 2.4, Source-UTI, s/p Blood cultures, Rocephin IV, continue w/ IV Abx, IVF for hydration, repeat Lactic Acid , follow up cultures. Positive for gram-negative rods 2. UTI: U/a w/ significant UTI, continue ERTAPENEM E.COLI UT follow up urine cultures, monitor I/O, IVF. Gram-negative rods 3. A-fib w/ RVR: No h/o A-fib, possibly compounded by acute Sepsis/UTI, HR 130 's on arrival, s/p Cardizem IV x1 w/ improvement, HR now 90-100's, will monitor closely, Cardizem gtt if needed, Telemetry, check Echo to eval for valvular abnormality/cardiomyopathy, Consult Cardiology for further eval/intervention. Hold ASA in light of h/o SDH, continue home Statin. Have been adjusted by cardiology 4. Hyperglycemia: BS 257, Daughter notes pt was told she was "prediabetic", previously prescribed Metformin, however discontinued due to side effects. Check Hgb A1c, sliding scale w/ Accu-checks. Positive diabetes 5. Breast CA: recent diagnosis, s/p eval by Dr. Prescott, not currently on treatment, pending second opinion. 6. DVT Prophylaxis: Pharmacologic contraindication, h/o recent SDH. 7. Social work for d/c planning as needed PT and OT to eval and treat Adjust antibiotics CONSULT ID Discussed with RN and patient and family Code Status: FULL CODE Discussed Condition With: RN AND PT AND FAMILY Discharge Planning: Pending cardiac improvement and treatment of her infection (5) Breast cancer Qualifiers: Breast location: unspecified site of breast Estrogen receptor status: unspecified Patient sex: female Laterality: bilateral Qualified Code(s): C50.911 - Malignant neoplasm of unspecified site of right female breast; C50.912 - Malignant neoplasm of unspecified site of left female breast
--- NOTE | 2018-01-30 17:46 | P.PNID ---
Subjective Remarks: WBC up to 16.9 afebrile she grew ESBL+ E.coli 4/4 tolerates abx OK Antibiotics: ertapenem Allergies/Adverse Reactions: Allergies Sulfa (Sulfonamide Antibiotics) Allergy (Intermediate, Verified 01/27/18 20:30) RASH swelling to tongue and rash per patient/family codeine Allergy (Verified 01/27/18 20:30) Swelling of Lip/Tongue/Throat Objective Vital Signs 01/29/18 17:45 01/29/18 18:00 01/29/18 18:05 Temperature Pulse Rate 91 H 94 H Respiratory Rate 37 H Blood Pressure 126/72 Pulse Oximetry 98 99 01/29/18 18:06 01/29/18 18:15 01/29/18 18:30 Temperature Pulse Rate 97 H 96 H 96 H Respiratory Rate 52 H 34 H Blood Pressure 167/84 H 156/94 H 179/86 H Pulse Oximetry 99 99 100 01/29/18 18:45 01/29/18 19:00 01/29/18 19:15 Temperature Pulse Rate 99 H 99 H 107 H Respiratory Rate 36 H 43 H 52 H Blood Pressure 158/69 H 173/99 H 191/86 H Pulse Oximetry 97 99 94 L 01/29/18 19:30 01/29/18 19:45 01/29/18 20:00 Temperature 98.7 F Pulse Rate 103 H 106 H 108 H Respiratory Rate 45 H 39 H 30 H Blood Pressure 166/82 H 179/81 H 155/74 H Pulse Oximetry 97 97 95 01/29/18 20:15 01/29/18 21:00 01/29/18 22:00 Temperature Pulse Rate 106 H 107 H 97 H Respiratory Rate 29 H 96 H 35 H Blood Pressure 152/84 H Pulse Oximetry 98 96 96 01/29/18 23:00 01/30/18 00:00 01/30/18 00:25 Temperature Pulse Rate 88 87 87 Respiratory Rate 41 H 23 29 H Blood Pressure 114/59 L Pulse Oximetry 96 95 98 01/30/18 01:00 01/30/18 02:00 01/30/18 04:00 Temperature 99.2 F 98.1 F Pulse Rate 87 90 94 H Respiratory Rate 23 Blood Pressure 138/82 Pulse Oximetry 97 97 01/30/18 05:40 01/30/18 06:00 09/26/18 08:00 Temperature 98.8 F Pulse Rate 94 H 102 H Respiratory Rate 20 25 H Blood Pressure 140/61 Pulse Oximetry 95 01/30/18 10:00 01/30/18 12:00 01/30/18 14:00 Temperature 98.9 F Pulse Rate 94 H 94 H 98 H Respiratory Rate 21 Blood Pressure 163/80 H Pulse Oximetry 97 01/30/18 16:00 Temperature 99.0 F Pulse Rate 98 H Respiratory Rate 29 H Blood Pressure 144/70 H Pulse Oximetry 97 Intake & Output 01/29/18 01/30/18 01/30/18 18:59 06:59 18:59 Intake Total 1340 / 1340 2650 / 2650 1100 / 1100 Output Total 650 / 650 801 / 801 Balance 690 / 690 1849 / 1849 1100 / 1100 Intake: IV 1100 / 1100 2000 / 2000 1100 / 1100 NS Inj 1,000 ML @ 100 mls/hr IV 1000 / 1000 2000 / 2000 1000 / 1000 .CONT .Q10H LANA Rx#:[id number] INVanz Inj 1,000 MG In NS Inj 100 / 100 100 / 100 100 ML @ 200 mls/hr IV.SIG Q24H LANA Rx#:[id number] Oral 240 / 240 650 / 650 Output: Urine 800 / 800 Stool 1 / 1 Urine Amount (Catheter) 650 / 650 Female External 650 / 650 Other: # Incontinent Voids 2 Date of Last Bowel Movement 01/29/18 01/29/18 01/29/18 # Bowel Movements 2 01/27/18 20:35 Blood - Peripheral Aerobic Blood Culture - Final Escherichia coli ESBL positive 01/27/18 20:35 Blood - Peripheral Anaerobic Blood Culture - Final Escherichia coli ESBL positive 01/27/18 20:43 Blood - Peripheral Aerobic Blood Culture - Final Escherichia coli ESBL positive 01/27/18 20:43 Blood - Peripheral Anaerobic Blood Culture - Final Escherichia coli ESBL positive 01/27/18 22:35 Clean Catch Urine Urine Culture - Final Escherichia coli ESBL positive Lab - Hematology Results 01/29/18 01/30/18 04:50 05:34 WBC 15.6 H 16.9 H RBC 3.93 L 3.98 L Hgb 12.1 12.3 Hct 35.6 35.6 MCV 90.5 89.5 MCH 30.8 30.8 MCHC 34.0 34.4 RDW 14.2 13.9 Plt Count 110 L 124 L MPV 9.2 8.7 Neut % (Auto) 87.2 H 86.7 H Lymph % (Auto) 5.1 L 4.4 L [place] % (Auto) 7.3 8.5 H Eos % (Auto) 0.1 0.3 Baso % (Auto) 0.3 0.1 Neut # (Auto) 13.6 H 14.7 H Lymph # (Auto) 0.8 L 0.8 L [place] # (Auto) 1.1 H 1.4 H Eos # (Auto) 0.0 0.1 Baso # (Auto) 0.0 0.0 WBC Differential . . Differential Comment Auto diff final Auto diff final Lab - Chemistry Results 01/28/18 01/28/18 01/29/18 17:38 20:03 04:50 Sodium 128 L Potassium 4.2 Chloride 97 L Carbon Dioxide 21.6 Anion Gap 9 BUN 14 Creatinine 0.84 Estimated GFR 66 L POC Glucose 198 H 186 H Random Glucose 138 H Calcium 8.2 L Phosphorus 2.9 Magnesium 1.5 Total Bilirubin 1.6 H AST 21 ALT 27 Alkaline Phosphatase 89 Total Protein 5.9 L D Albumin 2.1 L D 01/29/18 01/29/18 01/29/18 07:50 11:52 15:33 Sodium Potassium Chloride Carbon Dioxide Anion Gap BUN Creatinine Estimated GFR POC Glucose 120 H 117 H 213 H Random Glucose Calcium Phosphorus Magnesium Total Bilirubin AST ALT Alkaline Phosphatase Total Protein Albumin 01/29/18 01/30/18 01/30/18 21:31 05:34 07:35 Sodium 130 L Potassium 3.5 Chloride 98 Carbon Dioxide 22.2 Anion Gap 10 BUN 12 Creatinine 0.76 Estimated GFR 74 L POC Glucose 194 H 107 Random Glucose 110 H Calcium 8.0 L Phosphorus 2.3 L Magnesium 1.5 Total Bilirubin 1.1 H AST 19 ALT 25 Alkaline Phosphatase 108 Total Protein 5.8 L Albumin 2.0 L 01/30/18 01/30/18 11:12 16:06 Sodium Potassium Chloride Carbon Dioxide Anion Gap BUN Creatinine Estimated GFR POC Glucose 150 H 90 Random Glucose Calcium Phosphorus Magnesium Total Bilirubin AST ALT Alkaline Phosphatase Total Protein Albumin Imaging: ITS Impressions Chest X-Ray 01/27/18 20:36 CONCLUSION: No acute cardiopulmonary disease. Physical Exam: GENERAL: NAD afebrile SKIN: Warm and dry. EYES: No scleral icterus. CARDIOVASCULAR: Regular rate and rhythm. RESPIRATORY: No accessory muscle use. Clear to auscultation. Breath sounds equal bilaterally. GASTROINTESTINAL: Abdomen soft, non-tender, nondistended. Hepatic and splenic margins not palpable. MUSCULOSKELETAL: Extremities without clubbing, cyanosis, or edema. NEUROLOGICAL: Awake and alert. Non focal PSYCHIATRIC: unable to assess Assessment and Plan - Plan ESBL+ E.coli UTI HIgh gradfe sepsis from UTI cont Ertapenem x 2 weeks (thru 02/10) will need to get PICC/midline and OPAT prior to dc No oral options to switch (allergic to sulfa, R to levaquine) will see as needed
[2018-01-31] MEDS: Sod Chloride 0.9% Inj 1,000 ML IV.CONT SCH ×3 (01:04→20:55)
[2018-01-31 06:25] LABS: Baso % (Auto) 0.2 % (0.0-2.0); Eos # (Auto) 0.2 th/mm3 (0.0-0.4); Eos % (Auto) 1.4 % (0.0-4.0); Hematocrit 34.7 % (35.0-46.0); Hemoglobin 11.8 gm/dL (11.6-15.3); Lymph # (Auto) 1.3 th/mm3 (1.0-4.8); Lymph % (Auto) 9.4 % (9.0-44.0); Mean Corpuscular HGB Conc 34.1 % (32.0-36.0); Mean Corpuscular Hemoglobin 30.6 pg (27.0-34.0); Mean Corpuscular Volume 89.7 fL (80.0-100.0); Mean Platelet Volume 8.9 fL (7.0-11.0); Mono # (Auto) 1.4 th/mm3 (0.0-0.9); Mono % (Auto) 10.3 % (0.0-8.0); Neut # (Auto) 10.5 th/mm3 (1.8-7.7); Neut % (Auto) 78.7 % (16.0-70.0); Platelet Count 146 th/mm3 (150-450); Red Blood Count 3.87 mil/mm3 (4.00-5.30); Red Cell Distribution Width 13.6 % (11.6-17.2); White Blood Count 13.3 th/mm3 (4.0-11.0)
[2018-01-31 06:29] LABS: Alanine Aminotransferase 25 U/L (10-53); Albumin 1.8 g/dL (3.4-5.0); Anion Gap 8 meq/L (5-15); Aspartate Aminotransferase 21 U/L (15-37); Blood Urea Nitrogen 13 mg/dL (7-18); Calcium 8.2 mg/dL (8.5-10.1); Carbon Dioxide 24.2 meq/L (21.0-32.0); Chloride 103 meq/L (98-107); Glomerular Filtration Rate 89 mL/min (>89); Glucose,Random 108 mg/dL (74-106); Magnesium 1.9 mg/dL (1.5-2.5); Phosphorus 2.5 mg/dL (2.5-4.9); Potassium 3.5 meq/L (3.5-5.1); Sodium 135 meq/L (136-145)
[2018-01-31 06:31] LABS: Alkaline Phosphatase 114 U/L (45-117); Total Protein 5.5 g/dL (6.4-8.2)
[2018-01-31] MEDS: Sucralfate 1 GM Tablet PO SCH ×4 (09:24→20:18)
[2018-01-31] MEDS: Metoprolol Tartrate 50 MG Tablet PO SCH ×2 (09:24→20:18)
[2018-01-31] MEDS: Senna/Docusate Sodium 8.6/50 MG Tablet PO SCH ×2 (09:24→20:19)
[2018-01-31] MEDS: Insulin NovoLOG Aspart Correctional Sugar Inj SQ SCH ×4 (09:25→20:53)
--- NOTE | 2018-01-31 11:48 | P.PNIM ---
Subjective Interval history: This is a 77-year-old female with a PMH of Breast CA, Anxiety, HTN and Hyperlipidemia who was brought to the ER by daughter secondary to complaints of generalized malaise, fever and dysuria x2-3 days. Has been taking OTC medications for UTI symptoms with no relief. Denies nausea, vomiting or diarrhea. On arrival, noted to be in A. fib with RVR, HR 130, BP 139/86, O2 sat 95% on RA, Temp 99.0. WBC 17.8. Platelets 147. Na 125. Creatinine 1.13. BS 257. Lactic Acid 2.4. UA positive for UTI. CXR with no acute findings. Denies h/o A-fib in the past, no c/o chest pain or SOB at this time. S/p Rocephin and Cardizem IV x1 dose, HR now 100's. 01-28 patient is in ICU due to atrial fibrillation. Has been seen by cardiology. Found to have gram-negative rods in blood We will adjust antibiotics Awake alert and oriented x3 talkative and cooperative A.m. labs PT and OT eval and treat 01-29 has E.COLI ESBL IN URINE CONSULT ID SWITCH TO ERTAPENEM SINCE HAS SOME COVERAGE AM LABS MOVE OUT OF ICU PT AND OT CARLOS RN AND PT AND FAMILY 01-30 on ertapenem MORE ALERT TODAY NEEDS TO WORK WITH PT AND OT CARLOS RN AND PT AND FAMILY AWAIT TRANSFER WAS MOBILE AT HOME PRIOR TO HOSPITALIZATION 01-31 will NEED IV ANTIBIOTICS FOR ANOTHER 2 WEEKS OR SO CARLOS RN AND PT AND FAMILY WILL NEED ACCESS PRIOR TO DISCHARGE AM LABS Physical Exam Vital signs: Vital Signs 01/30/18 12:00 01/30/18 14:00 01/30/18 16:00 Temperature 98.9 F 99.0 F Pulse Rate 94 H 98 H 98 H Respiratory Rate 21 29 H Blood Pressure 163/80 H 144/70 H Pulse Oximetry 97 97 01/30/18 18:00 01/30/18 20:00 01/31/18 00:00 Temperature 98.2 F 97.9 F Pulse Rate 98 H 100 H 100 H Respiratory Rate 29 H 27 H Blood Pressure 143/70 H 130/73 Pulse Oximetry 97 100 01/31/18 04:00 01/31/18 08:00 01/31/18 10:00 Temperature 98.4 F 98.6 F Pulse Rate 87 101 H 97 H Respiratory Rate 17 25 H Blood Pressure 133/72 132/72 Pulse Oximetry 97 98 Intake & Output 01/30/18 01/31/18 01/31/18 18:59 06:59 18:59 Intake Total 1500 / 1500 1720 / 1720 1000 / 1000 Output Total 650 / 650 800 / 800 Balance 850 / 850 920 / 920 1000 / 1000 Weight 77.2 kg Intake: IV 1100 / 1100 1000 / 1000 1000 / 1000 NS Inj 1,000 ML @ 100 mls/hr IV 1000 / 1000 1000 / 1000 1000 / 1000 .CONT .Q10H LANA Rx#:[id number] INVanz Inj 1,000 MG In NS Inj 100 / 100 100 ML @ 200 mls/hr IV.SIG Q24H LANA Rx#:[id number] Oral 400 / 400 720 / 720 Output: Urine Amount (Catheter) 650 / 650 800 / 800 Female External 650 / 650 800 / 800 Other: # Voids 2 Date of Last Bowel Movement 01/29/18 01/29/18 01/31/18 Narrative: GENERAL: Very pleasant elderly white female in no acute distress, appears weak/ tired. Daughter at bedside. Awake alert and oriented x3 talkative and cooperative SKIN: Focused skin assessment warm and dry. HEENT: PERRLA, EOMI. No scleral icterus or conjunctival pallor. No lid lag or facial droop. Tongue is midline CARDIOVASCULAR: A. fib CONTROLLED, HR 100's. No obvious murmurs to auscultation. No chest tenderness to palpation. Irregularly irregular RESPIRATORY: No obvious rhonchi or wheezing. Clear to auscultation. Breath sounds equal bilaterally. GASTROINTESTINAL: Abdomen soft, non-tender, nondistended. BS normal. MUSCULOSKELETAL: Extremities without clubbing, cyanosis, or edema. No obvious deformities. NEUROLOGICAL: Awake, alert and oriented x4. No focal neurologic deficits. Moving both upper and lower extremities spontaneously. PSYCHIATRIC: Appropriate mood and affect. Insight and judgment normal. - Urinary Catheter Management Female External Cath placed during this visit: no Results - Labs CBC & Chem 7: 01/31/18 04:16 01/31/18 04:16 Laboratory Results - last 24 hr 01/30/18 01/30/18 01/31/18 16:06 20:46 04:16 WBC 13.3 H RBC 3.87 L Hgb 11.8 Hct 34.7 L MCV 89.7 MCH 30.6 MCHC 34.1 RDW 13.6 Plt Count 146 L MPV 8.9 Neut % (Auto) 78.7 H Lymph % (Auto) 9.4 [place] % (Auto) 10.3 H Eos % (Auto) 1.4 Baso % (Auto) 0.2 Neut # (Auto) 10.5 H Lymph # (Auto) 1.3 [place] # (Auto) 1.4 H Eos # (Auto) 0.2 Baso # (Auto) 0.0 WBC Differential . Differential Comment Auto diff final Sodium Potassium Chloride Carbon Dioxide Anion Gap BUN Creatinine Estimated GFR POC Glucose 90 113 H Random Glucose Calcium Phosphorus Magnesium Total Bilirubin AST ALT Alkaline Phosphatase Total Protein Albumin 01/31/18 01/31/18 04:16 08:59 WBC RBC Hgb Hct MCV MCH MCHC RDW Plt Count MPV Neut % (Auto) Lymph % (Auto) [place] % (Auto) Eos % (Auto) Baso % (Auto) Neut # (Auto) Lymph # (Auto) [place] # (Auto) Eos # (Auto) Baso # (Auto) WBC Differential Differential Comment Sodium 135 L Potassium 3.5 Chloride 103 Carbon Dioxide 24.2 Anion Gap 8 BUN 13 Creatinine 0.65 Estimated GFR 89 POC Glucose 87 Random Glucose 108 H Calcium 8.2 L Phosphorus 2.5 Magnesium 1.9 Total Bilirubin 0.6 AST 21 ALT 25 Alkaline Phosphatase 114 Total Protein 5.5 L Albumin 1.8 L Microbiology 01/27/18 20:35 Blood - Peripheral Aerobic Blood Culture - Final Escherichia coli ESBL positive 01/27/18 20:35 Blood - Peripheral Anaerobic Blood Culture - Final Escherichia coli ESBL positive 01/27/18 20:43 Blood - Peripheral Aerobic Blood Culture - Final Escherichia coli ESBL positive 01/27/18 20:43 Blood - Peripheral Anaerobic Blood Culture - Final Escherichia coli ESBL positive - Imaging ITS Impressions Chest X-Ray 01/27/18 20:36 CONCLUSION: No acute cardiopulmonary disease. - Procedures NONE Assessment and Plan - Assessment (1) Sepsis Code(s): A41.9 - Sepsis, unspecified organism Status: Acute (2) UTI (urinary tract infection) Code(s): N39.0 - Urinary tract infection, site not specified Status: Acute (3) Atrial fibrillation with RVR Code(s): I48.91 - Unspecified atrial fibrillation Status: Acute (4) Hyperglycemia Code(s): R73.9 - Hyperglycemia, unspecified Status: Acute (5) Breast cancer Code(s): C50.919 - Malignant neoplasm of unspecified site of unspecified female breast Status: Acute - Plan 1. Sepsis: Temp 99.0, HR 130, WBC 14, Lactic Acid 2.4, Source-UTI, s/p Blood cultures, Rocephin IV, continue w/ IV Abx, IVF for hydration, repeat Lactic Acid , follow up cultures. Positive for gram-negative rods 2. UTI: U/a w/ significant UTI, continue ERTAPENEM E.COLI UTI follow up urine cultures, monitor I/O, IVF. Gram-negative rods 3. A-fib w/ RVR: No h/o A-fib, possibly compounded by acute Sepsis/UTI, HR 130 's on arrival, s/p Cardizem IV x1 w/ improvement, HR now 90-100's, will monitor closely, Cardizem gtt if needed, Telemetry, check Echo to eval for valvular abnormality/cardiomyopathy, Consult Cardiology for further eval/intervention. Hold ASA in light of h/o SDH, continue home Statin. Have been adjusted by cardiology 4. Hyperglycemia: BS 257, Daughter notes pt was told she was "prediabetic", previously prescribed Metformin, however discontinued due to side effects. Check Hgb A1c, sliding scale w/ Accu-checks. Positive diabetes 5. Breast CA: recent diagnosis, s/p eval by Dr. Prescott, not currently on treatment, pending second opinion. 6. DVT Prophylaxis: Pharmacologic contraindication, h/o recent SDH. 7. Social work for d/c planning as needed PT and OT to eval and treat Adjust antibiotics CONSULT ID Discussed with RN and patient and family Code Status: FULL CODE Discussed Condition With: RN AND PT AND FAMILY Discharge Planning: Pending cardiac improvement and treatment of her infection (5) Breast cancer Qualifiers: Breast location: unspecified site of breast Estrogen receptor status: unspecified Patient sex: female Laterality: bilateral Qualified Code(s): C50.911 - Malignant neoplasm of unspecified site of right female breast; C50.912 - Malignant neoplasm of unspecified site of left female breast
[2018-02-01 07:03] LABS: Baso # (Auto) 0.1 th/mm3 (0.0-0.2); Baso % (Auto) 0.5 % (0.0-2.0); Eos # (Auto) 0.2 th/mm3 (0.0-0.4); Eos % (Auto) 2.2 % (0.0-4.0); Hematocrit 37.2 % (35.0-46.0); Hemoglobin 12.7 gm/dL (11.6-15.3); Lymph # (Auto) 1.4 th/mm3 (1.0-4.8); Lymph % (Auto) 12.1 % (9.0-44.0); Mean Corpuscular HGB Conc 34.2 % (32.0-36.0); Mean Corpuscular Hemoglobin 30.8 pg (27.0-34.0); Mean Corpuscular Volume 90.2 fL (80.0-100.0); Mean Platelet Volume 9.1 fL (7.0-11.0); Mono # (Auto) 1.4 th/mm3 (0.0-0.9); Mono % (Auto) 12.2 % (0.0-8.0); Neut # (Auto) 8.3 th/mm3 (1.8-7.7); Platelet Count 168 th/mm3 (150-450); Red Blood Count 4.13 mil/mm3 (4.00-5.30); Red Cell Distribution Width 14.2 % (11.6-17.2); White Blood Count 11.4 th/mm3 (4.0-11.0)
[2018-02-01 07:17] LABS: Anion Gap 10 meq/L (5-15); Aspartate Aminotransferase 31 U/L (15-37); Blood Urea Nitrogen 10 mg/dL (7-18); Calcium 7.8 mg/dL (8.5-10.1); Carbon Dioxide 25.1 meq/L (21.0-32.0); Chloride 102 meq/L (98-107); Glomerular Filtration Rate Greater Than 89 mL/min (>89); Glucose,Random 88 mg/dL (74-106); Magnesium 1.7 mg/dL (1.5-2.5); Potassium 3.2 meq/L (3.5-5.1); Sodium 137 meq/L (136-145)
[2018-02-01 07:19] LABS: Alanine Aminotransferase 29 U/L (10-53); Phosphorus 2.6 mg/dL (2.5-4.9)
[2018-02-01 07:22] LABS: Alkaline Phosphatase 121 U/L (45-117)
[2018-02-01] MEDS: Sod Chloride 0.9% Inj 1,000 ML IV.CONT SCH (09:49)
[2018-02-01] MEDS: Senna/Docusate Sodium 8.6/50 MG Tablet PO SCH (09:50)
[2018-02-01] MEDS: Metoprolol Tartrate 50 MG Tablet PO SCH (09:50)
--- NOTE | 2018-02-01 09:51 | P.DS ---
Date of admission: 01/27/18 23:32 Primary care physician: Onofre Gimenez MD Brief History from admission: This is a 77-year-old female with a PMH of Breast CA, Anxiety, HTN and Hyperlipidemia who was brought to the ER by daughter secondary to complaints of generalized malaise, fever and dysuria x2-3 days. Has been taking OTC medications for UTI symptoms with no relief. Denies nausea, vomiting or diarrhea. On arrival, noted to be in A. fib with RVR, HR 130, BP 139/86, O2 sat 95% on RA, Temp 99.0. WBC 17.8. Platelets 147. Na 125. Creatinine 1.13. BS 257. Lactic Acid 2.4. UA positive for UTI. CXR with no acute findings. Denies h/o A-fib in the past, no c/o chest pain or SOB at this time. S/p Rocephin and Cardizem IV x1 dose, HR now 100's. DS: Diagnosis - Discharge Diagnosis (1) ESBL (extended spectrum beta-lactamase) producing bacteria infection Status: Acute (2) Atrial fibrillation with RVR Status: Deleted DS: Medications - Discharge Medications Prescriptions: metoprolol tartrate 75 mg PO BID #60 tab DS: Summary Hospital Course: Patient was admitted, started on diltiazem. Eventually heart rate was stabilized on Lopressor. Patient is doing well with PT. Patient's sepsis had resolved. Urine and blood was growing out high-grade ESBL E. coli. Infectious disease help co-manage antibiotics mainly with ertapenem. Patient will be getting a PICC line and to be discharged home. Regarding the patient's A. fib, cardiology evaluated the patient. Concluded that she was at high risk of stroke given a higher chads vas score. However due to her history of intracranial bleed a joint decision was made to opt out of pharmacological anticoagulation at this time, and consider starting so in a few weeks. Patient has met maximal benefit from hospitalization is clinically stable for discharge. - Time Spent with Patient Total time spent providing and/or coordinating discharge services: Less than 30 minutes Exam Vital signs: Vital Signs 01/31/18 10:00 01/31/18 12:00 01/31/18 14:00 Temperature 98.4 F Pulse Rate 97 H 96 H 83 Respiratory Rate 25 H Blood Pressure 138/65 Pulse Oximetry 97 01/31/18 16:00 01/31/18 18:00 01/31/18 20:00 Temperature 98.2 F 98.2 F Pulse Rate 87 99 H 112 H Respiratory Rate 21 25 H Blood Pressure 143/69 H 152/71 H Pulse Oximetry 96 97 01/31/18 22:00 01/31/18 23:00 02/01/18 00:00 Temperature 97.6 F Pulse Rate 92 H 89 82 Respiratory Rate 20 20 Blood Pressure 144/78 H 152/78 H Pulse Oximetry 98 100 02/01/18 01:00 02/01/18 02:00 02/01/18 03:00 Temperature 97.9 F Pulse Rate 84 84 113 H Respiratory Rate 20 Blood Pressure 143/89 H Pulse Oximetry 93 L 02/01/18 04:00 02/01/18 04:22 02/01/18 05:00 Temperature Pulse Rate 84 72 106 H Respiratory Rate 18 Blood Pressure Pulse Oximetry 02/01/18 06:00 Temperature Pulse Rate 104 H Respiratory Rate Blood Pressure Pulse Oximetry Intake & Output 01/31/18 02/01/18 02/01/18 18:59 06:59 18:59 Intake Total 1700 / 1700 1240 / 1240 Output Total 2 / 2 Balance 1698 / 1698 1240 / 1240 Weight 73.5 kg Intake: IV 1100 / 1100 1000 / 1000 NS Inj 1,000 ML @ 100 mls/hr IV 1000 / 1000 1000 / 1000 .CONT .Q10H LANA Rx#:[id number] INVanz Inj 1,000 MG In NS Inj 100 / 100 100 ML @ 200 mls/hr IV.SIG Q24H LANA Rx#:[id number] Oral 600 / 600 240 / 240 Output: Stool 2 / 2 Other: # Voids 6 5 Date of Last Bowel Movement 01/31/18 01/31/18 # Bowel Movements 2 2 Narrative: Heart sounds regular rate rhythm, no murmurs Clear lungs bilaterally, unlabored breathing Results Procedures completed during hospitalization: . Labs on day of discharge: Labs from last 24 hours 02/01/18 02/01/18 01/31/18 04:36 04:36 20:50 WBC 11.4 H RBC 4.13 Hgb 12.7 Hct 37.2 MCV 90.2 MCH 30.8 MCHC 34.2 RDW 14.2 Plt Count 168 MPV 9.1 Neut % (Auto) 73.0 H Lymph % (Auto) 12.1 [place] % (Auto) 12.2 H Eos % (Auto) 2.2 Baso % (Auto) 0.5 Neut # (Auto) 8.3 H Lymph # (Auto) 1.4 [place] # (Auto) 1.4 H Eos # (Auto) 0.2 Baso # (Auto) 0.1 WBC Differential . Differential Comment Auto diff final Sodium 137 Potassium 3.2 L Chloride 102 Carbon Dioxide 25.1 Anion Gap 10 BUN 10 Creatinine 0.63 Estimated GFR Greater than 89 POC Glucose 182 H Random Glucose 88 Calcium 7.8 L Phosphorus 2.6 Magnesium 1.7 Total Bilirubin 0.5 AST 31 ALT 29 Alkaline Phosphatase 121 H Total Protein 6.0 L Albumin 2.0 L 01/31/18 01/31/18 16:53 12:27 WBC RBC Hgb Hct MCV MCH MCHC RDW Plt Count MPV Neut % (Auto) Lymph % (Auto) [place] % (Auto) Eos % (Auto) Baso % (Auto) Neut # (Auto) Lymph # (Auto) [place] # (Auto) Eos # (Auto) Baso # (Auto) WBC Differential Differential Comment Sodium Potassium Chloride Carbon Dioxide Anion Gap BUN Creatinine Estimated GFR POC Glucose 109 175 H Random Glucose Calcium Phosphorus Magnesium Total Bilirubin AST ALT Alkaline Phosphatase Total Protein Albumin - Impressions ITS Impressions Chest X-Ray 01/27/18 20:36 CONCLUSION: No acute cardiopulmonary disease. Discharge Plan - Discharge Disposition Patient Disposition: /Home Health Service - Discharge Condition Condition: Stable - Discharge Order Discharge Orders: Discharge Order (Routine); Ordered 02/01/18 Ordered By: Raymond Van - Physicians Team Primary Care Provider: Onofre Gimenez Attending Provider: Raymond Van Other Providers: John Nicolas MD ; Smooth Estradaa ; Gloria Neville MD ; Donato [facility],[place]
[2018-02-01] MEDS: Insulin NovoLOG Aspart Correctional Sugar Inj SQ SCH ×2 (09:52→12:56)
--- NOTE | 2018-02-01 09:54 | P.DCO ---
- Physical Therapy Order: Evaluate and treat - Occupational Therapy Order: Evaluate and treat - Home Health Nursing Order: IV medication administration - Case Management Consult Yes - Certification I have seen patient Carmen Childers on 02/01/18. My clinical findings support the need for the requested home health care services because: Limited ability to care for self I certify that my clinical findings support that this patient is homebound because: Unsafe to leave home unassisted
[2018-02-01 09:55] VITALS: BP 148/84; TEMP 97.1; O2SAT 98
--- NOTE | 2018-02-01 10:52 | P.PNCA ---
Subjective Interval history: No acute events. Remains in afib HR in low 100s at rest. No CP/SOB Medications and Allergies Active Medications: Active Medications Acetaminophen (Tylenol) 650 mg PO Q4H PRN PRN Reason: Temp > 100.4 Last Admin: 01/29/18 20:11 Dose: 650 mg Acetaminophen (Tylenol) 650 mg PO Q6HR PRN PRN Reason: HEADACHE Last Admin: 01/31/18 18:05 Dose: 650 mg Al Hydroxide/Mg Hydroxide (Milk Of Magnesia Liq) 30 ml PO Q12H PRN PRN Reason: Mild Constipation Last Admin: 01/31/18 00:07 Dose: 30 ml Albuterol (Duoneb Neb (Prn)) 1 ampul NEB Q2HR NEB PRN PRN Reason: WHEEZING Last Admin: 02/01/18 04:22 Dose: 1 ampul Alprazolam (Xanax) 0.5 mg PO TID PRN PRN Reason: Anxiety Bisacodyl (Dulcolax Supp) 10 mg RECTAL DAILY PRN PRN Reason: SEVERE CONSITIPATION Buspirone HCl (Buspar) 7.5 mg PO BID [facility] Last Admin: 02/01/18 09:50 Dose: 7.5 mg Dextrose (D50w Vial) 50 ml IV.PUSH UNSCH PRN PRN Reason: PER HYPOGLYCEMIA PROTOCOL Glucagon (Glucagon Inj) 1 mg OTHER PRN PRN PRN Reason: for Hypoglycemia Protocol Sodium Chloride (Ns Inj) 1,000 mls @ 100 mls/hr IV.CONT .Q10H [facility] Last Admin: 02/01/18 09:49 Dose: 100 mls/hr Ertapenem 1,000 mg/ Sodium (Chloride) 100 mls @ 200 mls/hr IV.SIG Q24H [facility] Last Infusion: 01/31/18 13:17 Dose: Infused Insulin Aspart (Novolog Insulin Correctional Sugar Inj) 0 unit SQ ACHS [facility]; Protocol Last Admin: 02/01/18 09:52 Dose: Not Given Lactulose (Lactulose Liq) 30 ml PO DAILY PRN PRN Reason: SEVERE CONSITIPATION Metoprolol Tartrate (Lopressor) 50 mg PO BID [facility] Last Admin: 02/01/18 09:50 Dose: 50 mg Naloxone HCl (Narcan Inj) 0.4 mg IV.PUSH UNSCH PRN PRN Reason: SEE LABEL COMMENTS Ondansetron HCl (Zofran Inj) 4 mg IV.PUSH Q6H PRN PRN Reason: NAUSEA OR VOMITING Last Admin: 01/30/18 03:00 Dose: 4 mg Oxycodone/Acetaminophen (Percocet 5/325 Mg) 1 tab PO Q6H PRN PRN Reason: PAIN SCALE 3 TO 5 Last Admin: 01/31/18 20:22 Dose: 1 tab Pantoprazole Sodium (Protonix) 40 mg PO DAILY [facility] Last Admin: 02/01/18 09:50 Dose: 40 mg Pravastatin Sodium (Pravachol) 40 mg PO DAILY [facility] Last Admin: 02/01/18 09:50 Dose: 40 mg Senna/Docusate Sodium (Ginger-Colace) 1 tab PO BID [facility] Last Admin: 02/01/18 09:50 Dose: 1 tab Sennosides (Senokot) 17.2 mg PO Q12H PRN PRN Reason: Moderate Constipation Sucralfate (Carafate) 1 gm PO ACHS [facility] Last Admin: 01/31/18 20:18 Dose: 1 gm Allergies Allergy/AdvReac Type Severity Reaction Status Date / Time Sulfa (Sulfonamide Allergy Intermediate RASH Verified 01/27/18 20:30 Antibiotics) codeine Allergy Swelling Verified 01/27/18 20:30 of Lip/Tongue/Throat Home Medications Medication Instructions Recorded Confirmed Type alprazolam 0.5 mg PO TID PRN 11/15/17 01/27/18 History hydrocodone-acetaminophen 1 tab PO Q4-6H PRN 11/15/17 01/27/18 History lovastatin 40 mg PO DAILY 11/15/17 01/27/18 History pantoprazole 40 mg PO DAILY 11/15/17 01/27/18 History triamterene-hydrochlorothiazid 1 tab PO DAILY 11/15/17 01/27/18 History bnuntjci-yod-dblx-FA-lutein 1 tab PO DAILY 12/17/17 01/27/18 History [Centrum Silver Women] acetaminophen [Tylenol Extra 500 mg PO DIRECTED PRN 01/05/18 01/27/18 History Strength] ascorbic acid (vitamin C) [Vitamin 500 mg PO DAILY 01/05/18 01/27/18 History C] cyanocobalamin (vitamin B-12) 1,000 mcg PO DAILY 01/05/18 01/27/18 History [Vitamin B-12] buspirone 7.5 mg PO BID 01/27/18 01/27/18 History Physical Exam Vital signs: Vital Signs 01/31/18 12:00 01/31/18 14:00 01/31/18 16:00 Temperature 98.4 F 98.2 F Pulse Rate 96 H 83 87 Respiratory Rate 25 H 21 Blood Pressure 138/65 143/69 H Pulse Oximetry 97 96 01/31/18 18:00 01/31/18 20:00 01/31/18 22:00 Temperature 98.2 F Pulse Rate 99 H 112 H 92 H Respiratory Rate 25 H 20 Blood Pressure 152/71 H 144/78 H Pulse Oximetry 97 98 01/31/18 23:00 02/01/18 00:00 02/01/18 01:00 Temperature 97.6 F Pulse Rate 89 82 84 Respiratory Rate 20 Blood Pressure 152/78 H Pulse Oximetry 100 02/01/18 02:00 02/01/18 03:00 02/01/18 04:00 Temperature 97.9 F Pulse Rate 84 113 H 84 Respiratory Rate 20 Blood Pressure 143/89 H Pulse Oximetry 93 L 02/01/18 04:22 02/01/18 05:00 02/01/18 06:00 Temperature Pulse Rate 72 106 H 104 H Respiratory Rate 18 Blood Pressure Pulse Oximetry 02/01/18 07:00 02/01/18 08:00 02/01/18 09:00 Temperature 97.1 F L Pulse Rate 96 H 100 H 98 H Respiratory Rate 18 Blood Pressure 148/84 H Pulse Oximetry 98 02/01/18 10:00 Temperature Pulse Rate 92 H Respiratory Rate Blood Pressure Pulse Oximetry Intake & Output 01/31/18 02/01/18 02/01/18 18:59 06:59 18:59 Intake Total 1700 / 1700 2240 / 2240 Output Total 2 / 2 Balance 1698 / 1698 2240 / 2240 Weight 73.5 kg Intake: IV 1100 / 1100 1999 / 1999 NS Inj 1,000 ML @ 100 mls/hr IV 1000 / 1000 1999 / 1999 .CONT .Q10H [facility] Rx#:[id number] INVanz Inj 1,000 MG In NS Inj 100 / 100 100 ML @ 200 mls/hr IV.SIG Q24H [facility] Rx#:[id number] Oral 600 / 600 240 / 240 Output: Stool 2 / 2 Other: # Voids 6 5 Date of Last Bowel Movement 01/31/18 01/31/18 01/31/18 # Bowel Movements 2 2 - Constitutional no acute distress - Routine HEENT Exam Head: Present: normocephalic - Routine Neck Exam Absent: JVD - Routine Respiratory Exam Present: CTA bilaterally - Routine Cardiovascular Exam Present: S1, S2, murmur (2/6 LLsB), irregular rhythm - Routine Abdominal Exam Present: soft, normoactive bowel sounds - Routine Extremities Exam Absent: edema - Routine Neurological Exam Present: alert, oriented X3 - Urinary Catheter Management Female External Cath placed during this visit: no Results 02/01/18 04:36 02/01/18 04:36 Cardiac Enzymes 01/31/18 02/01/18 Range/Units 04:16 04:36 AST 21 31 (15-37) U/L CBC 01/31/18 02/01/18 Range/Units 04:16 04:36 WBC 13.3 H 11.4 H (4.0-11.0) th/mm3 RBC 3.87 L 4.13 (4.00-5.30) mil/mm3 Hgb 11.8 12.7 (11.6-15.3) gm/dL Hct 34.7 L 37.2 (35.0-46.0) % Plt Count 146 L 168 (150-450) th/mm3 Neut # (Auto) 10.5 H 8.3 H (1.8-7.7) th/mm3 Lymph # (Auto) 1.3 1.4 (1.0-4.8) th/mm3 [place] # (Auto) 1.4 H 1.4 H (0.0-0.9) th/mm3 Eos # (Auto) 0.2 0.2 (0.0-0.4) th/mm3 Baso # (Auto) 0.0 0.1 (0.0-0.2) th/mm3 Comprehensive Metabolic Panel 01/31/18 02/01/18 Range/Units 04:16 04:36 Sodium 135 L 137 (136-145) meq/L Potassium 3.5 3.2 L (3.5-5.1) meq/L Chloride 103 102 (98-107) meq/L Carbon Dioxide 24.2 25.1 (21.0-32.0) meq/L BUN 13 10 (7-18) mg/dL Creatinine 0.65 0.63 (0.50-1.00) mg/dL Calcium 8.2 L 7.8 L (8.5-10.1) mg/dL AST 21 31 (15-37) U/L ALT 25 29 (10-53) U/L Alkaline Phosphatase 114 121 H (45-117) U/L Total Protein 5.5 L 6.0 L (6.4-8.2) g/dL Albumin 1.8 L 2.0 L (3.4-5.0) g/dL Intake and Output 01/31/18 02/01/18 02/01/18 22:59 06:59 14:59 Intake Total 1600 / 1600 1240 / 1240 Output Total 2 / 2 Balance 1598 / 1598 1240 / 1240 Intake: IV 1000 / 1000 1000 / 1000 NS Inj 1,000 ML @ 100 mls/hr IV 1000 / 1000 1000 / 1000 .CONT .Q10H [facility] Rx#:[id number] Oral 600 / 600 240 / 240 Output: Stool 2 / 2 Other: # Voids 6 5 Date of Last Bowel Movement 01/31/18 01/31/18 01/31/18 # Bowel Movements 2 2 Weight 73.5 kg Assessment and Plan - Plan Afib- not in AVR ([id number] 5 (age, female, HTN, addition of DM2)-6.0 % stroke rate, HASBLED score of 3-5.8% of major bleed UTI-plan for d/c on home abx HTN HLD Dm2 Hx of Subdural Hematoma Moderate TR, euvolemic currently Will plan to increase her Metoprolol to 75mg po BID. After discussion with patient and family, continue to hold AC in the setting of presyncopal falls as infection is clearing up and with her recent subdural hemorrhage. The patient should follow up with me within 2 weeks for an EKG and to re-visit AC and later down the road Watchman implantation. Thank you for allowing me to participate. Please contact me with any questions.
[2018-02-01] MEDS: Sucralfate 1 GM Tablet PO SCH ×3 (12:36→20:09)
[2018-02-01 13:16] VITALS: RESP 20
--- NOTE | 2018-02-01 13:27 | P.PNID ---
Subjective Remarks: doing OK afebrile x 3 days WBC steadily down to 11K no diarrhea she grew ESBL+ E.coli 4/4 and from urine clx Antibiotics: ertapenem Allergies/Adverse Reactions: Allergies Sulfa (Sulfonamide Antibiotics) Allergy (Intermediate, Verified 01/27/18 20:30) RASH swelling to tongue and rash per patient/family codeine Allergy (Verified 01/27/18 20:30) Swelling of Lip/Tongue/Throat Objective Vital Signs 01/31/18 14:00 01/31/18 16:00 01/31/18 18:00 Temperature 98.2 F Pulse Rate 83 87 99 H Respiratory Rate 21 Blood Pressure 143/69 H Pulse Oximetry 96 01/31/18 20:00 01/31/18 22:00 01/31/18 23:00 Temperature 98.2 F 97.6 F Pulse Rate 112 H 92 H 89 Respiratory Rate 25 H 20 20 Blood Pressure 152/71 H 144/78 H 152/78 H Pulse Oximetry 97 98 100 02/01/18 00:00 02/01/18 01:00 02/01/18 02:00 Temperature Pulse Rate 82 84 84 Respiratory Rate Blood Pressure Pulse Oximetry 02/01/18 03:00 02/01/18 04:00 02/01/18 04:22 Temperature 97.9 F Pulse Rate 113 H 84 72 Respiratory Rate 20 18 Blood Pressure 143/89 H Pulse Oximetry 93 L 02/01/18 05:00 02/01/18 06:00 02/01/18 07:00 Temperature 97.1 F L Pulse Rate 106 H 104 H 96 H Respiratory Rate 18 Blood Pressure 148/84 H Pulse Oximetry 98 02/01/18 08:00 02/01/18 09:00 02/01/18 10:00 Temperature Pulse Rate 100 H 98 H 92 H Respiratory Rate Blood Pressure Pulse Oximetry 02/01/18 11:00 02/01/18 12:00 02/01/18 13:00 Temperature Pulse Rate 100 H 98 H 100 H Respiratory Rate 20 Blood Pressure Pulse Oximetry 98 Intake & Output 01/31/18 02/01/18 02/01/18 18:59 06:59 18:59 Intake Total 1700 / 1700 2240 / 2240 Output Total 2 / 2 Balance 1698 / 1698 2240 / 2240 Weight 73.5 kg Intake: IV 1100 / 1100 2000 / 2000 NS Inj 1,000 ML @ 100 mls/hr IV 1000 / 1000 1999 .CONT .Q10H [facility] Rx#:[id number] INVanz Inj 1,000 MG In NS Inj 100 / 100 100 ML @ 200 mls/hr IV.SIG Q24H [facility] Rx#:[id number] Oral 600 / 600 240 / 240 Output: Stool 2 / 2 Other: # Voids 6 5 Date of Last Bowel Movement 01/31/18 01/31/18 01/31/18 # Bowel Movements 2 2 01/27/18 20:35 Blood - Peripheral Aerobic Blood Culture - Final Escherichia coli ESBL positive 01/27/18 20:35 Blood - Peripheral Anaerobic Blood Culture - Final Escherichia coli ESBL positive 01/27/18 20:43 Blood - Peripheral Aerobic Blood Culture - Final Escherichia coli ESBL positive 01/27/18 20:43 Blood - Peripheral Anaerobic Blood Culture - Final Escherichia coli ESBL positive 01/27/18 22:35 Clean Catch Urine Urine Culture - Final Escherichia coli ESBL positive Lab - Hematology Results 01/31/18 02/01/18 04:16 04:36 WBC 13.3 H 11.4 H RBC 3.87 L 4.13 Hgb 11.8 12.7 Hct 34.7 L 37.2 MCV 89.7 90.2 MCH 30.6 30.8 MCHC 34.1 34.2 RDW 13.6 14.2 Plt Count 146 L 168 MPV 8.9 9.1 Neut % (Auto) 78.7 H 73.0 H Lymph % (Auto) 9.4 12.1 [place] % (Auto) 10.3 H 12.2 H Eos % (Auto) 1.4 2.2 Baso % (Auto) 0.2 0.5 Neut # (Auto) 10.5 H 8.3 H Lymph # (Auto) 1.3 1.4 [place] # (Auto) 1.4 H 1.4 H Eos # (Auto) 0.2 0.2 Baso # (Auto) 0.0 0.1 WBC Differential . . Differential Comment Auto diff final Auto diff final Lab - Chemistry Results 01/30/18 01/30/18 01/31/18 16:06 20:46 04:16 Sodium 135 L Potassium 3.5 Chloride 103 Carbon Dioxide 24.2 Anion Gap 8 BUN 13 Creatinine 0.65 Estimated GFR 89 POC Glucose 90 113 H Random Glucose 108 H Calcium 8.2 L Phosphorus 2.5 Magnesium 1.9 Total Bilirubin 0.6 AST 21 ALT 25 Alkaline Phosphatase 114 Total Protein 5.5 L Albumin 1.8 L 01/31/18 01/31/18 01/31/18 08:59 12:27 16:53 Sodium Potassium Chloride Carbon Dioxide Anion Gap BUN Creatinine Estimated GFR POC Glucose 87 175 H 109 Random Glucose Calcium Phosphorus Magnesium Total Bilirubin AST ALT Alkaline Phosphatase Total Protein Albumin 01/31/18 02/01/18 20:50 04:36 Sodium 137 Potassium 3.2 L Chloride 102 Carbon Dioxide 25.1 Anion Gap 10 BUN 10 Creatinine 0.63 Estimated GFR Greater than 89 POC Glucose 182 H Random Glucose 88 Calcium 7.8 L Phosphorus 2.6 Magnesium 1.7 Total Bilirubin 0.5 AST 31 ALT 29 Alkaline Phosphatase 121 H Total Protein 6.0 L Albumin 2.0 L Imaging: ITS Impressions Chest X-Ray 01/27/18 20:36 CONCLUSION: No acute cardiopulmonary disease. Physical Exam: GENERAL: NAD afebrile SKIN: Warm and dry. EYES: No scleral icterus. CARDIOVASCULAR: Regular rate and rhythm. RESPIRATORY: No accessory muscle use. Clear to auscultation. Breath sounds equal bilaterally. GASTROINTESTINAL: Abdomen soft, mildly diffusely tender w/o guarding or rebound , nondistended. Hepatic and splenic margins not palpable. MUSCULOSKELETAL: Extremities without clubbing, cyanosis, or edema. NEUROLOGICAL: Awake and alert. Non focal PSYCHIATRIC: unable to assess Assessment and Plan - Plan ESBL+ E.coli UTI HIgh grade E.coli (ESBL+) sepsis from UTI: clinically resolved cont Ertapenem x 2 weeks (thru 02/10) will need to get PICC/midline and OPAT prior to dc No oral options to switch (allergic to sulfa, R to levaquine) dw case mngr: pt is OK to get PICC/midline and be dc'd home OPAT filled out
--- NOTE | 2018-02-01 13:28 | P.DCO ---
Post Hospital Infusion Therapy Location of Infusion Therapy: Home [facility] Care IV Infusion Order Patient Weight: 73.5 kg - Diagnosis (1) UTI (urinary tract infection) Code(s): N39.0 - Urinary tract infection, site not specified - Administer Medication Ertapenem Dose: 1 gram IV Directions: q 24 hours Start Treatment: 02/02/18 Stop Treatment: 02/10/18 - Additional Information Venous Access: PICC Line Additional Instructions: [x] Peripheral flush and dressing changes per protocol [x] Implanted port and central first line supervisor: * Implanted port: 10 ml Normal Saline followed by 5 ml Heparin 100 units/ml Heparin flush after each use and monthly to maintain. [] May leave port accessed during therapy. [] May leave peripheral site accessed for duration of therapy. [x] If patient has SOB or respiratory distress, check oxygen saturation. If less than 90% or clinical signs of respiratory distress, administer oxygen at 2 L/min. via nasal cannula and notify physician. [x] Anaphylaxis/Reaction orders: * Stop infusion. * Keep IV line open with saline flush. * Notify physician. * Monitor vital signs every 15 minutes until symptoms resolve. * Check Oxygen saturation; Oxygen at 2 L/min. via nasal cannula if less than 90% or clinical signs of respiratory distress. * Administer diphenhydramine (Benadryl) 25 mg IV STAT, (unless patient has received as pre-med). May repeat once, if necessary. * Solu-Cortef 250 mg IVP over 30-60 seconds, use 100 mg vials for each dissolution. * Epinephrine (1mg/1 ml) 0.3 mg subcutaneously or IVP now with any signs of respiratory distress. * Check with physician for new additional pre-med orders if patient is re- challenged or re-treated. [x] May remove PICC line when treatment complete, after confirming with Physician. [x] If the patient is admitted to the hospital, the ED, or transferred via [facility] , complete transfer form including medication reconciliation order sheet. Weekly Labs: CBC w/diff, Creatinine Allergies Sulfa (Sulfonamide Antibiotics) Allergy (Intermediate, Verified 01/27/18 20:30) RASH swelling to tongue and rash per patient/family codeine Allergy (Verified 01/27/18 20:30) Swelling of Lip/Tongue/Throat
[2018-02-01 20:06] VITALS: PULSE 90
== END 2018-02-01 17:36 | disposition home health service (06) ==
LOC: NEPC 20:12 → NEDA 23:32 → N03 01-28 02:20 → HCIS 01-31 21:50
PROVIDERS: ADMIT Hospitalist; ATTEND Hospitalist

== ENCOUNTER 2018-02-02 15:29 | Observation (INO) ==
--- NOTE | 2018-02-02 16:07 | ED ---
HPI General Chief complaint: Respiratory Symptoms Stated complaint: SOB Time Seen by Provider: 02/02/18 16:02 Source: patient and family Mode of arrival: wheelchair Limitations: no limitations History of Present Illness HPI narrative: Per patient's family the home health nurse came and attempted to provide Invanz via the PICC line and the patient started to get really short of breath and wheezy. Apparently this patient had been experiencing some of these symptoms while in the hospital when she was admitted from January 27-. However during my chart evaluation I was unable to see any notes noting that the patient had any of these shortness of breath symptoms while hospitalized. progressive sob, apparently worsened when supine. Related Data Home Medications Medication Instructions Recorded Confirmed alprazolam 0.5 mg PO TID PRN 11/15/17 02/02/18 hydrocodone-acetaminophen 1 tab PO Q4-6H PRN 11/15/17 02/02/18 lovastatin 40 mg PO DAILY 11/15/17 02/02/18 pantoprazole 40 mg PO DAILY 11/15/17 02/02/18 triamterene-hydrochlorothiazid 1 tab PO DAILY 11/15/17 02/02/18 jaeltwee-zuk-fath-FA-lutein 1 tab PO DAILY 12/17/17 02/02/18 [Centrum Silver Women] ascorbic acid (vitamin C) [Vitamin 500 mg PO DAILY 01/05/18 02/02/18 C] cyanocobalamin (vitamin B-12) 1,000 mcg PO DAILY 01/05/18 02/02/18 [Vitamin B-12] buspirone 7.5 mg PO BID 01/27/18 02/02/18 citalopram 10 mg PO DAILY 02/02/18 02/02/18 Previous Rx's Medication Instructions Recorded potassium chloride 20 meq PO BID #60 tab 12/17/17 metoprolol tartrate 75 mg PO BID #60 tab 02/01/18 diltiazem HCl 120 mg PO DAILY #30 cap 02/03/18 torsemide 20 mg PO DAILY #30 tab 02/03/18 Allergies Allergy/AdvReac Type Severity Reaction Status Date / Time Sulfa (Sulfonamide Allergy Intermediate RASH Verified 01/27/18 20:30 Antibiotics) codeine Allergy Swelling Verified 01/27/18 20:30 of Lip/Tongue/Throat PMFSH Medical History Medical History Anxiety (Acute) Atrial fibrillation (Acute) Breast cancer (Acute) HX: breast cancer (Acute) History of anxiety (Acute) Hypercholesteremia (Acute) Hypertension (Acute) Ulcer (Acute) Surgical History Surgical History H/O tubal ligation (Acute) History of (Acute) History of biopsy (Acute) Hx of appendectomy (Acute) Hx of cholecystectomy (Acute) Social History Social History Substance History: No History of Abuse Second Hand Smoke Exposure: No Smoking Status: Never smoker How Often Do You Have a Drink Containing Alcohol: Never Exam Narrative Exam Narrative: GENERAL: Thin female speaking short sentences sitting up in bed SKIN: Focused skin assessment warm/dry. HEAD: Atraumatic. Normocephalic. EYES: Pupils equal and round. No scleral icterus. No injection or drainage. ENT: No nasal bleeding or discharge. Mucous membranes pink and moist. NECK: Trachea midline. No JVD. CARDIOVASCULAR: Regular rate and rhythm. No murmur appreciated. RESPIRATORY: No accessory muscle use. Clear to auscultation. Breath sounds equal bilaterally. GASTROINTESTINAL: Abdomen soft, non-tender, nondistended. Hepatic and splenic margins not palpable. MUSCULOSKELETAL: No obvious deformities. No clubbing. No cyanosis. No edema. NEUROLOGICAL: Awake and alert. No obvious cranial nerve deficits. Motor grossly within normal limits. Normal speech. PSYCHIATRIC: Appropriate mood and affect; insight and judgment normal. Course Initial Documented Vital Signs Temperature 97.6 F 02/02/18 15:45 Pulse Rate 93 H 02/02/18 15:45 Respiratory Rate 20 02/02/18 15:45 Blood Pressure 159/93 H 02/02/18 15:45 Pulse Oximetry 94 L 02/02/18 15:45 Last Documented Vital Signs Temperature 99.0 F 02/03/18 16:00 Pulse Rate 108 H 02/03/18 16:00 Respiratory Rate 16 02/03/18 16:00 Blood Pressure 158/106 H 02/03/18 16:00 Pulse Oximetry 95 02/03/18 16:00 Medical Decision Making MDM Narrative Medical Screen Exam Complete: Yes Emergency Medical Condition: Yes Medical Records Medical records reviewed: Yes I reviewed the patient's medical records. Patient was admitted on January 27 and discharged on February 01. Patient has a history of breast CA anxiety hypertension hyperlipidemia who was brought into the emergency department back on January 27 due to general malaise and dysuria for 2-3 days. The patient at that point had a lactic acid of 2.4 and was tachycardic at 130 in atrial fibrillation with rapid ventricular rate, patient was given Rocephin and Cardizem IV x1, UA was consistent with a UTI and chest x-ray at that point was showing no acute findings. Patient had a PICC line placed and has been treated with ertapenem as recommended by infectious disease consult.... The choice was made because there were no oral options to switch due to the allergy to sulfa and to Levaquin. Lab Data Lab results reviewed: Yes I reviewed the patient's lab results. Result diagrams: 02/03/18 03:27 02/03/18 03:27 Lab Results 02/02/18 02/02/18 02/02/18 Range/Units 16:31 16:55 16:55 WBC 9.9 (4.0-11.0) th/mm3 RBC 3.73 L (4.00-5.30) mil/mm3 Hgb 11.5 L (11.6-15.3) gm/dL Hct 33.2 L (35.0-46.0) % MCV 88.9 (80.0-100.0) fL MCH 30.9 (27.0-34.0) pg MCHC 34.7 (32.0-36.0) % RDW 14.0 (11.6-17.2) % Plt Count 245 D (150-450) th/mm3 MPV 8.0 (7.0-11.0) fL Neut % (Auto) 62.0 (16.0-70.0) % Lymph % (Auto) 22.4 (9.0-44.0) % [place] % (Auto) 11.3 H (0.0-8.0) % Eos % (Auto) 3.8 (0.0-4.0) % Baso % (Auto) 0.5 (0.0-2.0) % Neut # (Auto) 6.1 (1.8-7.7) th/mm3 Lymph # (Auto) 2.2 (1.0-4.8) th/mm3 [place] # (Auto) 1.1 H (0.0-0.9) th/mm3 Eos # (Auto) 0.4 (0.0-0.4) th/mm3 Baso # (Auto) 0.1 (0.0-0.2) th/mm3 WBC Differential . Differential Comment Auto diff final PT (9.8-11.6) sec INR Ratio Puncture Site Right radial Patient Temperature 98.6 O2 Saturation 94 (90-100) % ABG pH 7.42 (7.380-7.420) ABG pCO2 43 H (38-42) mmHg ABG pO2 78 (61-120) mmHg ABG HCO3 28 H (22-26) mmol/L ABG O2 Content 15.2 (12.0-20.0) Vol % ABG Base Excess 3.4 H (-2-2) mmol/L ABG Methemoglobin 0.5 (0-2) % Hal Test Present Hemoglobin 11.5 L (12.0-16.0) G/DL Carboxyhemoglobin 1.3 (0-4) % Inspired O2 21 % Critical Value No Sodium (136-145) meq/L Potassium (3.5-5.1) meq/L Chloride (98-107) meq/L Carbon Dioxide (21.0-32.0) meq/L Anion Gap (5-15) meq/L BUN (7-18) mg/dL Creatinine (0.50-1.00) mg/dL Estimated GFR (>89) mL/min Random Glucose (74-106) mg/dL Hemoglobin A1c (4.3-6.0) % Calcium (8.5-10.1) mg/dL Magnesium (1.5-2.5) mg/dL Total Bilirubin (0.2-1.0) mg/dL AST (15-37) U/L ALT (10-53) U/L Alkaline Phosphatase (45-117) U/L Total Creatine Kinase (26-192) U/L Troponin I (0.02-0.05) ng/mL B-Natriuretic Peptide 243 H (0-100) pg/mL Total Protein (6.4-8.2) g/dL Albumin (3.4-5.0) g/dL 09/29/18 09/30/18 09/30/18 Range/Units 16:55 03:27 03:27 WBC 9.4 (4.0-11.0) th/mm3 RBC 3.71 L (4.00-5.30) mil/mm3 Hgb 11.4 L (11.6-15.3) gm/dL Hct 32.9 L (35.0-46.0) % MCV 88.6 (80.0-100.0) fL MCH 30.6 (27.0-34.0) pg MCHC 34.6 (32.0-36.0) % RDW 13.9 (11.6-17.2) % Plt Count 248 (150-450) th/mm3 MPV 7.8 (7.0-11.0) fL Neut % (Auto) 66.3 (16.0-70.0) % Lymph % (Auto) 19.1 (9.0-44.0) % [place] % (Auto) 10.8 H (0.0-8.0) % Eos % (Auto) 3.2 (0.0-4.0) % Baso % (Auto) 0.6 (0.0-2.0) % Neut # (Auto) 6.2 (1.8-7.7) th/mm3 Lymph # (Auto) 1.8 (1.0-4.8) th/mm3 [place] # (Auto) 1.0 H (0.0-0.9) th/mm3 Eos # (Auto) 0.3 (0.0-0.4) th/mm3 Baso # (Auto) 0.1 (0.0-0.2) th/mm3 WBC Differential . Differential Comment Auto diff final PT (9.8-11.6) sec INR Ratio Puncture Site Patient Temperature O2 Saturation (90-100) % ABG pH (7.380-7.420) ABG pCO2 (38-42) mmHg ABG pO2 (61-120) mmHg ABG HCO3 (22-26) mmol/L ABG O2 Content (12.0-20.0) Vol % ABG Base Excess (-2-2) mmol/L ABG Methemoglobin (0-2) % Hal Test Hemoglobin (12.0-16.0) G/DL Carboxyhemoglobin (0-4) % Inspired O2 % Critical Value Sodium 139 140 (136-145) meq/L Potassium 3.2 L 3.4 L (3.5-5.1) meq/L Chloride 100 99 (98-107) meq/L Carbon Dioxide 28.3 31.3 (21.0-32.0) meq/L Anion Gap 11 10 (5-15) meq/L BUN 9 8 (7-18) mg/dL Creatinine 0.75 0.64 (0.50-1.00) mg/dL Estimated GFR 75 L Greater than 89 (>89) mL/min Random Glucose 131 H 89 (74-106) mg/dL Hemoglobin A1c (4.3-6.0) % Calcium 8.1 L 8.0 L (8.5-10.1) mg/dL Magnesium 1.7 (1.5-2.5) mg/dL Total Bilirubin 0.4 (0.2-1.0) mg/dL AST 19 (15-37) U/L ALT 24 (10-53) U/L Alkaline Phosphatase 99 (45-117) U/L Total Creatine Kinase 26 (26-192) U/L Troponin I Less than 0.02 L (0.02-0.05) ng/mL B-Natriuretic Peptide (0-100) pg/mL Total Protein 6.0 L (6.4-8.2) g/dL Albumin 2.2 L (3.4-5.0) g/dL 02/03/18 02/03/18 02/03/18 Range/Units 03:27 03:27 09:12 WBC (4.0-11.0) th/mm3 RBC (4.00-5.30) mil/mm3 Hgb (11.6-15.3) gm/dL Hct (35.0-46.0) % MCV (80.0-100.0) fL MCH (27.0-34.0) pg MCHC (32.0-36.0) % RDW (11.6-17.2) % Plt Count (150-450) th/mm3 MPV (7.0-11.0) fL Neut % (Auto) (16.0-70.0) % Lymph % (Auto) (9.0-44.0) % [place] % (Auto) (0.0-8.0) % Eos % (Auto) (0.0-4.0) % Baso % (Auto) (0.0-2.0) % Neut # (Auto) (1.8-7.7) th/mm3 Lymph # (Auto) (1.0-4.8) th/mm3 [place] # (Auto) (0.0-0.9) th/mm3 Eos # (Auto) (0.0-0.4) th/mm3 Baso # (Auto) (0.0-0.2) th/mm3 WBC Differential Differential Comment PT 11.4 (9.8-11.6) sec INR 1.1 Ratio Puncture Site Patient Temperature O2 Saturation (90-100) % ABG pH (7.380-7.420) ABG pCO2 (38-42) mmHg ABG pO2 (61-120) mmHg ABG HCO3 (22-26) mmol/L ABG O2 Content (12.0-20.0) Vol % ABG Base Excess (-2-2) mmol/L ABG Methemoglobin (0-2) % Hal Test Hemoglobin (12.0-16.0) G/DL Carboxyhemoglobin (0-4) % Inspired O2 % Critical Value Sodium (136-145) meq/L Potassium (3.5-5.1) meq/L Chloride (98-107) meq/L Carbon Dioxide (21.0-32.0) meq/L Anion Gap (5-15) meq/L BUN (7-18) mg/dL Creatinine (0.50-1.00) mg/dL Estimated GFR (>89) mL/min Random Glucose (74-106) mg/dL Hemoglobin A1c 6.4 H (4.3-6.0) % Calcium (8.5-10.1) mg/dL Magnesium (1.5-2.5) mg/dL Total Bilirubin (0.2-1.0) mg/dL AST (15-37) U/L ALT (10-53) U/L Alkaline Phosphatase (45-117) U/L Total Creatine Kinase (26-192) U/L Troponin I (0.02-0.05) ng/mL B-Natriuretic Peptide 246 H (0-100) pg/mL Total Protein (6.4-8.2) g/dL Albumin (3.4-5.0) g/dL Imaging Data Attestation: I personally reviewed and interpreted this imaging study as follows : Radiologist's impression: Chest CTA 02/02/18 00:00 CONCLUSION: 1. The study is negative for pulmonary embolism. 2. Large bilateral pleural effusions with adjacent compressive atelectasis and subsegmental consolidation. 3. 1.5 cm masslike lesion in the lateral right breast is nonspecific. Recommend correlation with mammogram. Chest X-Ray 02/02/18 16:26 CONCLUSION: Probable CHF. Chest Ultrasound 02/03/18 00:00 CONCLUSION: 1. Right pleural effusion as above. Venous Doppler Study 02/03/18 00:00 CONCLUSION: No venous thrombosis is identified within the left upper extremity. Discharge Plan Discharge Disposition Patient Disposition: 01 Discharge Home Discharge Condition Condition: Good Discharge Order Discharge Orders: Discharge Order (Routine); Ordered 02/03/18 Ordered By: Laine Flores Discharge Details Anticipated Discharge Date: 02/03/18 Physicians Team ED Provider: Jay Jay Chadwick Primary Care Provider: Onofre Gimenez Attending Provider: Laine Flores Other Providers: John Nicolas Status ED Status: Left Department Discharge Information Discharge Date/Time: 02/02/18 21:05
[2018-02-02 16:49] LABS: ABG Base Excess 3.4 mmol/L (-2-2); ABG PCO2 43 mmHg (38-42); ABG PO2 78 mmHg (61-120)
--- NOTE | 2018-02-02 17:07 | XR ---
EXAM DATE: 02/02/2018 4:26 PM EDT AGE/SEX: 77 years / Female INDICATIONS: Chest pain. CLINICAL DATA: This is the patient's initial encounter. Patient reports that signs and symptoms have been present for 1 day and indicates a pain score of 6/10. MEDICAL/SURGICAL HISTORY: None. None. [place] [facility] [place]. . FINDINGS: Single view chest demonstrates cardiomegaly with bilateral effusions and diffuse interstitial promine nce most consistent with congestive failure. The visualized bony structures are grossly intact. CONCLUSION: Probable CHF. Electronically signed by: Vadim Linda MD 02/02/2018 4:44 PM EDT
[2018-02-02 17:15] LABS: Baso # (Auto) 0.1 th/mm3 (0.0-0.2); Baso % (Auto) 0.5 % (0.0-2.0); Eos # (Auto) 0.4 th/mm3 (0.0-0.4); Eos % (Auto) 3.8 % (0.0-4.0); Hematocrit 33.2 % (35.0-46.0); Hemoglobin 11.5 gm/dL (11.6-15.3); Lymph # (Auto) 2.2 th/mm3 (1.0-4.8); Lymph % (Auto) 22.4 % (9.0-44.0); Mean Corpuscular HGB Conc 34.7 % (32.0-36.0); Mean Corpuscular Hemoglobin 30.9 pg (27.0-34.0); Mean Corpuscular Volume 88.9 fL (80.0-100.0); Mono # (Auto) 1.1 th/mm3 (0.0-0.9); Mono % (Auto) 11.3 % (0.0-8.0); Neut # (Auto) 6.1 th/mm3 (1.8-7.7); Platelet Count 245 th/mm3 (150-450); Red Blood Count 3.73 mil/mm3 (4.00-5.30); White Blood Count 9.9 th/mm3 (4.0-11.0)
[2018-02-02 17:38] LABS: Anion Gap 11 meq/L (5-15); Blood Urea Nitrogen 9 mg/dL (7-18); Calcium 8.1 mg/dL (8.5-10.1); Carbon Dioxide 28.3 meq/L (21.0-32.0); Chloride 100 meq/L (98-107); Glomerular Filtration Rate 75 mL/min (>89); Glucose,Random 131 mg/dL (74-106); Potassium 3.2 meq/L (3.5-5.1); Sodium 139 meq/L (136-145)
--- NOTE | 2018-02-02 17:45 | P.HPIM ---
History of Present Illness Service: [facility] Primary Care Physician: Onofre Gimenez MD Chief Complaint: SOB History of Present Illness: This is a 77 y/o CF with PMHx of A. Fib, HTN, and recent hospitalization (01/27-) for ESBL UTI and Bacteremia on Ertapenem (Invanz) x2wks to finish on 02/05 who now presents with progressively worsening SOB x2 days. Patient reports that she began to develop SOB during the end of her hospitalization but that now she gets SOB even at rest. Patient denies cough, CP, fever, and chills. Patient was receiving home health on D/C with last dose of Ertapenem yesterday. Patient also has a hx of Breast CA. During her last hospitalization patient developed RVR with HR in the 130's requiring Cardizem IV x1 and a BB. Patient was managed by Dr. Nicolas and it was decided that she was high risk for AOC and she would F/ U with him as an outpatient. CXR at that time was WNL. Patient has a PICC line for ABX therapy. Patient is not a smoker, no Hx of COPD or Asthma. - Diagnosis (1) Hypokalemia (2) Atrial fibrillation (3) Pleural effusion (4) ESBL (extended spectrum beta-lactamase) producing bacteria infection Review of Systems All other systems reviewed negative except as stated in HPI PMFSH - History History Provided By: Patient, Family Member - Medical History Medical History: Medical History (Last Updated 02/02/18 @ 18:16 by Radha Emerson MD) Atrial fibrillation Anxiety Breast cancer HX: breast cancer History of anxiety Hypercholesteremia Hypertension Ulcer - Surgical History Surgical History: Surgical History (Last Reviewed 02/02/18 @ 18:16 by Radha Emerson MD) H/O tubal ligation History of History of biopsy Hx of appendectomy Hx of cholecystectomy - Family History Family History: Family History (Last Reviewed 02/02/18 @ 18:16 by Radha Emerson MD) Other Family history of diabetes mellitus - Tobacco History Second Hand Smoke Exposure: No Smoking Status: Never smoker - Alcohol History How Often Do You Have a Drink Containing Alcohol: Never - Substance Use History Substance History: No History of Abuse - Travel History Recent Travel in the [place] Within the Last 8 Weeks: No Recent Travel Out of the Country Within the Last 8 Weeks: No - Immunization History Tetanus Immunization: Unsure Medications and Allergies Allergies Allergy/AdvReac Type Severity Reaction Status Date / Time Sulfa (Sulfonamide Allergy Intermediate RASH Verified 01/27/18 20:30 Antibiotics) codeine Allergy Swelling Verified 01/27/18 20:30 of Lip/Tongue/Throat Home Medications Medication Instructions Recorded Confirmed Type alprazolam 0.5 mg PO TID PRN 11/15/17 02/02/18 History hydrocodone-acetaminophen 1 tab PO Q4-6H PRN 11/15/17 02/02/18 History lovastatin 40 mg PO DAILY 11/15/17 02/02/18 History pantoprazole 40 mg PO DAILY 11/15/17 02/02/18 History triamterene-hydrochlorothiazid 1 tab PO DAILY 11/15/17 02/02/18 History tjqbhsvj-fas-xbul-FA-lutein 1 tab PO DAILY 12/17/17 02/02/18 History [Centrum Silver Women] ascorbic acid (vitamin C) [Vitamin 500 mg PO DAILY 01/05/18 02/02/18 History C] cyanocobalamin (vitamin B-12) 1,000 mcg PO DAILY 01/05/18 02/02/18 History [Vitamin B-12] buspirone 7.5 mg PO BID 01/27/18 02/02/18 History Exam Vital signs: Vital Signs 02/02/18 15:45 02/02/18 15:49 02/02/18 15:56 Temperature 97.6 F Pulse Rate 93 H 82 Respiratory Rate 20 22 Blood Pressure 159/93 H 156/74 H Pulse Oximetry 94 L 95 94 L 02/02/18 16:20 02/02/18 16:55 Temperature Pulse Rate 82 Respiratory Rate 24 Blood Pressure Pulse Oximetry 95 Intake & Output 02/01/18 02/02/18 02/02/18 18:59 06:59 18:59 Weight 68.039 kg Narrative: GENERAL: thin, female, in some respiratory distress, speaking in short sentences, sitting up in bed, NC in place SKIN: Warm and dry. HEAD: Normocephalic. EYES: No scleral icterus. No injection or drainage. NECK: Supple, trachea midline. No JVD or lymphadenopathy. CARDIOVASCULAR: irregular rhythm without murmurs, gallops, or rubs. RESPIRATORY: Breath sounds equal bilaterally. No accessory muscle use. GASTROINTESTINAL: Abdomen soft, non-tender, nondistended. MUSCULOSKELETAL: No cyanosis, +1 edema. BACK: Nontender without obvious deformity. No CVA tenderness. NEURO: AAOX3, CN 2-12 intact, motor strength 5/5 Results - Labs CBC & Chem 7: 02/02/18 16:55 02/02/18 16:55 Labs: Short CBC 02/02/18 Range/Units 16:55 WBC 9.9 (4.0-11.0) th/mm3 Hgb 11.5 L (11.6-15.3) gm/dL Hct 33.2 L (35.0-46.0) % Plt Count 245 D (150-450) th/mm3 BMP 02/02/18 16:55 Sodium 139 Potassium 3.2 L Chloride 100 Carbon Dioxide 28.3 BUN 9 Creatinine 0.75 Calcium 8.1 L - Imaging Impressions Chest X-Ray 02/02/18 16:26 CONCLUSION: Probable CHF. Caprini VTE Risk Assessment Caprini VTE Risk Assessment: Moderate/High Risk (score >= 2) Caprini Risk Assessment Model: Point Value = 1 Point Value = 2 Point Value = 3 Point Value = 5 Age 41-60 Minor surgery BMI > 25 kg/m2 Swollen legs Varicose veins or History of unexplained or recurrent spontaneous Oral contraceptives or hormone replacement Sepsis (< 1 month) Serious lung disease, including pneumonia (< 1 month) Abnormal pulmonary function Acute myocardial infarction Congestive heart failure (< 1 month) History of inflammatory bowel disease Medical patient at bed rest Age 61-74 Arthroscopic surgery Major open surgery (> 45 min) Laparoscopic surgery (> 45 min) Malignancy Confined to bed (> 72 hours) Immobilizing plaster cast Central venous access Age >= 75 History of VTE Family history of VTE Factor V Leiden Prothrombin [id number] Lupus anticoagulant Anticardiolipin antibodies Elevated serum homocysteine Heparin-induced thrombocytopenia Other congenital or acquired thrombophilia Stroke (< 1 month) Elective arthroplasty Hip, pelvis, or leg fracture Acute spinal cord injury (< 1 month) Prophylaxis Regimen: Total Risk Factor Score Risk Level Prophylaxis Regimen 0-1 Low Early ambulation 2 Moderate Order ONE of the following: *Sequential Compression Device (SCD) *Heparin 5000 units SQ BID 3-4 Higher Order ONE of the following medications: *Heparin 5000 units SQ TID *Enoxaparin/Lovenox 40 mg SQ daily (WT < 150 kg, CrCl > 30 mL/min) *Enoxaparin/Lovenox 30 mg SQ daily (WT < 150 kg, CrCl > 10-29 mL/min) *Enoxaparin/Lovenox 30 mg SQ BID (WT < 150 kg, CrCl > 30 mL/min) AND/OR *Sequential Compression Device (SCD) 5 or more Highest Order ONE of the following medications: *Heparin 5000 units SQ TID (Preferred with Epidurals) *Enoxaparin/Lovenox 40 mg SQ daily (WT < 150 kg, CrCl > 30 mL/min) *Enoxaparin/Lovenox 30 mg SQ daily (WT < 150 kg, CrCl > 10-29 mL/min) *Enoxaparin/Lovenox 30 mg SQ BID (WT < 150 kg, CrCl > 30 mL/min) AND *Sequential Compression Device (SCD) Assessment and Plan - Assessment (1) Hypokalemia Code(s): E87.6 - Hypokalemia Status: Acute (2) Atrial fibrillation Code(s): I48.91 - Unspecified atrial fibrillation Status: Chronic (3) Pleural effusion Code(s): J90 - Pleural effusion, not elsewhere classified Status: Acute (4) ESBL (extended spectrum beta-lactamase) producing bacteria infection Code(s): A49.9 - Bacterial infection, unspecified; Z16.12 - Extended spectrum beta lactamase (ESBL) resistance Status: Acute - Plan This is a 77 y/o CF with PMHx of A. Fib, HTN, and recent hospitalization (01/27-) for ESBL UTI and Bacteremia on Ertapenem (Invanz) x2wks to finish on 02/05 who now presents with progressively worsening SOB x2 days, per CXR found to have bilateral effusions concerning for CHF, nml echo on 01/28. Patient admitted for IP mgmt, HD#1 1. Shortness of Breath Due to Pleural Effusions/Fluid Overload Tachypneic during evaluation, will get CTA to R/O PE Echo on 01/28, ef 60-65% (Moderate TR) Will consult Cards (Dr. Nicolas) as they managed her A. Fib last hospitalization STAT BNP and Troponins pending Lasix 40mg IV BID CXR 02/02: Single view chest demonstrates cardiomegaly with bilateral effusions and diffuse interstitial prominence most consistent with congestive failure. The visualized bony structures are grossly intact. Probable CHF. ECHO 01/28: The left ventricular systolic function is normal with an estimated ejection fraction in the range of 60-65%. Normal left ventricular size and wall thickness. No regional wall motion abnormality. The left atrial size is mildly dilated. Mild mitral valve regurgitation. There is moderate tricuspid regurgitation. The estimated pulmonary arterial pressure is 37 mmHg. The IVC is normal sized but there is less than 50% collapse with inspiration. No pericardial effusion. No prior echo for comparision. 2. ESBL+ E.coli UTI and Bacteremia Bld Cx x4 on 01/27 ESBL sensitive to Ertapenem Urine Cx 01/27 ESBL sensitive to Ertapenem Repeat Urine and Bld Cx obtained today Cont. Ertapenem 1gm IV daily x 2 weeks (end 02/10) Consult ID in AM if patient is not discharged 3. Atrial Fibrillation/Moderate TR Not in AVR [id number] 5 (age, female, HTN, addition of DM2) Managed by Cards during last hospitalization (Dr. Nicolas) Cont. home Metoprolol 75mg BID Holding OAC due to fall risk and recent subdural hemorrhage Has outpatient appt. for EKG in 2 weeks for an EKG and to revisit AC and later down the road Watchman implantation 4. Hx of Subdural Hematoma HEAD CT 01/05: Negative CT Head non contrast. 5. Hypokalemia s/p replacement with additional [id number] PO x1, resume home 20meq BID F/U BMP and Mag in AM 6. Anemia Hgb 11.5, at baseline, cont. to monitor F/U CBC in AM 7. GERD Cont. home PPI 8. Anxiety Cont. home Alprazolam TID PRN 9. HLD Cont. home statin 10. HTN Stable, cont. home Triamterene-HCTZ 11. DVT PPX: SCD's 12. Dispo: pending BNP, Trops, and Echo. Cardiology consulted, consult ID in AM if patient converts to inpatient. Code Status: full Discussed Condition With: patient, daughter, RN
[2018-02-02 17:52] LABS: Creatine Kinase 26 U/L (26-192)
[2018-02-02] MEDS ORDERED: Acetaminophen 325 MG Tablet PO PRN (17:59)
[2018-02-02] MEDS ORDERED: Bisacodyl 10 MG Supp RECTAL PRN (19:00)
[2018-02-02] MEDS ORDERED: Non-Formulary Drug (Multivit-Min-Iron-Fa-Lutein [Centrum Silver Women] 1 TAB) PO SCH (19:00)
[2018-02-02] MEDS ORDERED: ALPRAZolam 0.5 MG Tablet PO PRN (19:00)
--- NOTE | 2018-02-02 19:12 | CT ---
EXAM DATE: 02/02/2018 6:37 PM EDT AGE/SEX: 77 years / Female INDICATIONS: Shortness of breath today. CLINICAL DATA: This is the patient's initial encounter. Patient reports that signs and symptoms have been present for 1 day and indicates a pain score of 0/10. MEDICAL/SURGICAL HISTORY: Carcinoma, breast. Hypertension. Cholecystectomy. Tubal ligation. RADIATION DOSE: 10.6 CTDI (mGy) COMPARISON: No prior exams available for comparison. TECHNIQUE: Volumetric scanning was performed using a multi-row detector CT scanner during bolus infu dandre of 70 ml Omnipaque 350 (iohexol) nonionic water-soluble contrast as a single exam dose. The shantal a was post processed with a variety of visualization algorithms including full volume maximum intensi ty projection and sliding thin slab reformation. Using automated exposure control and adjustment of t he mA and/or kV according to patient size, radiation dose was kept as low as reasonably achievable to obtain optimal diagnostic quality images. DICOM format image data is available electronically for r eview and comparison. FINDINGS: Pulmonary Arteries: No filling defects are seen in the pulmonary arteries out to the subsegmental ve ssels. The left and right pulmonary arteries are normal in diameter. Lung: Compressive atelectasis with some consolidation adjacent to bilateral pleural effusions. Effusion: Moderately large bilateral pleural effusions measuring 6.1 cm on the right and 5.0 cm on t he left. Mediastinum: No evidence of mediastinal or hilar adenopathy. Other: The axilla is unremarkable. 1.5 cm masslike density in the outer right breast with associated calcification. CONCLUSION: 1. The study is negative for pulmonary embolism. 2. Large bilateral pleural effusions with adjacent compressive atelectasis and subsegmental consolid ation. 3. 1.5 cm masslike lesion in the lateral right breast is nonspecific. Recommend correlation with [facility] mogram. Electronically signed by: Abhinav Benson MD 02/02/2018 7:11 PM EDT
[2018-02-02] MEDS: Metoprolol Tartrate 25 MG Tablet PO SCH (21:33)
[2018-02-02] MEDS: Sucralfate 1 GM Tablet PO SCH (21:34)
[2018-02-02] MEDS: Triamterene/HCTZ 37.5 MG/25 MG Tablet PO SCH (22:57)
[2018-02-02] MEDS: Ascorbic Acid 500 MG Tablet PO SCH (22:58)
[2018-02-03 04:04] LABS: Baso # (Auto) 0.1 th/mm3 (0.0-0.2); Baso % (Auto) 0.6 % (0.0-2.0); Eos # (Auto) 0.3 th/mm3 (0.0-0.4); Eos % (Auto) 3.2 % (0.0-4.0); Hematocrit 32.9 % (35.0-46.0); Hemoglobin 11.4 gm/dL (11.6-15.3); Lymph # (Auto) 1.8 th/mm3 (1.0-4.8); Lymph % (Auto) 19.1 % (9.0-44.0); Mean Corpuscular HGB Conc 34.6 % (32.0-36.0); Mean Corpuscular Hemoglobin 30.6 pg (27.0-34.0); Mean Corpuscular Volume 88.6 fL (80.0-100.0); Mean Platelet Volume 7.8 fL (7.0-11.0); Mono % (Auto) 10.8 % (0.0-8.0); Neut # (Auto) 6.2 th/mm3 (1.8-7.7); Neut % (Auto) 66.3 % (16.0-70.0); Platelet Count 248 th/mm3 (150-450); Red Blood Count 3.71 mil/mm3 (4.00-5.30); Red Cell Distribution Width 13.9 % (11.6-17.2); White Blood Count 9.4 th/mm3 (4.0-11.0)
[2018-02-03 04:24] LABS: Albumin 2.2 g/dL (3.4-5.0); Anion Gap 10 meq/L (5-15); Aspartate Aminotransferase 19 U/L (15-37); Blood Urea Nitrogen 8 mg/dL (7-18); Carbon Dioxide 31.3 meq/L (21.0-32.0); Chloride 99 meq/L (98-107); Glomerular Filtration Rate Greater Than 89 mL/min (>89); Glucose,Random 89 mg/dL (74-106); Magnesium 1.7 mg/dL (1.5-2.5); Potassium 3.4 meq/L (3.5-5.1); Sodium 140 meq/L (136-145)
[2018-02-03 04:25] LABS: Alanine Aminotransferase 24 U/L (10-53)
[2018-02-03 04:27] LABS: Alkaline Phosphatase 99 U/L (45-117)
[2018-02-03] MEDS: Metoprolol Tartrate 25 MG Tablet PO SCH (08:20)
[2018-02-03] MEDS: Triamterene/HCTZ 37.5 MG/25 MG Tablet PO SCH (08:20)
[2018-02-03] MEDS: Sucralfate 1 GM Tablet PO SCH ×2 (08:21→14:06)
[2018-02-03] MEDS: Ascorbic Acid 500 MG Tablet PO SCH (08:21)
[2018-02-03 08:51] VITALS: RESP 16
--- NOTE | 2018-02-03 09:13 | US ---
EXAM DATE: 02/03/2018 12:00 AM EDT AGE/SEX: 77 years / Female INDICATIONS: Thrombosis. CLINICAL DATA: This is the patient's initial encounter. Patient reports that signs and symptoms have been present for 1 day and indicates a pain score of 0/10. MEDICAL/SURGICAL HISTORY: . Afib. Breast cancer. Hypercholesterol. HTN. Ulcer. . Tubal lig ation. Breast biopsy; bilateral. section. Appendectomy. Cholecystectomy. COMPARISON: No prior exams available for comparison. FINDINGS: The vessels are compressible and augmentation response is documented. No filling defects a re seen. The flow is phasic with respiration. Other: None. CONCLUSION: No venous thrombosis is identified within the left upper extremity. Electronically signed by: Isidoro Anderson MD 02/03/2018 9:12 AM EDT
[2018-02-03 09:29] LABS: INR 1.1 Ratio; Prothrombin Time 11.4 sec (9.8-11.6)
[2018-02-03 12:24] LABS: Hemoglobin A1c 6.4 % (4.3-6.0)
[2018-02-03] MEDS ORDERED: Citalopram 20 MG Tablet PO SCH (14:00)
--- NOTE | 2018-02-03 15:32 | P.PN ---
Subjective Interval history: Follow up for dyspnea. Patient is doing well. Resting in bed, on room air. No acute concerns. Patient's family members are at bedside. Our plan was to give her rate control meds, diuretics and do thoracentesis tomorrow. Ultrasound shows right side pleural fluid about 400cc and left side 250cc. Later in the day , patient's family decided to take her home. Since patient is doing well on room air, we discussed about continuing diuretics and close follow up with her doctors. Physical Exam Vital signs: Vital Signs 02/02/18 15:45 02/02/18 15:49 02/02/18 15:56 Temperature 97.6 F Pulse Rate 93 H 82 Respiratory Rate 20 22 Blood Pressure 159/93 H 156/74 H Pulse Oximetry 94 L 95 94 L 02/02/18 16:20 02/02/18 16:55 02/02/18 20:00 Temperature 97.6 F Pulse Rate 82 100 H Respiratory Rate 24 18 Blood Pressure 132/79 Pulse Oximetry 95 96 02/02/18 23:13 02/03/18 03:32 02/03/18 08:00 Temperature 97.9 F 98.1 F 97.8 F Pulse Rate 90 89 94 H Respiratory Rate 16 18 16 Blood Pressure 130/69 146/73 H 163/86 H Pulse Oximetry 97 95 98 02/03/18 09:06 02/03/18 12:00 Temperature 97.8 F Pulse Rate 96 H 99 H Respiratory Rate 16 Blood Pressure 144/87 H Pulse Oximetry 93 L Intake & Output 02/02/18 02/03/18 02/03/18 18:59 06:59 18:59 Intake Total 240 / 240 100 / 100 Balance 240 / 240 100 / 100 Weight 71.8 kg Intake: IV 0 / 0 100 / 100 INVanz Inj 1,000 MG In NS Inj 0 / 0 100 / 100 100 ML @ 200 mls/hr IV.SIG Q24H [facility] Rx#:[id number] Oral 240 / 240 Other: # Voids 2 Date of Last Bowel Movement 02/03/18 # Bowel Movements 2 Narrative: GENERAL: Alert, NAD. On room air. SKIN: Warm and dry. HEAD: Normocephalic. EYES: No scleral icterus. No injection or drainage. NECK: Supple, trachea midline. No JVD or lymphadenopathy. CARDIOVASCULAR: Regular rate and rhythm without murmurs, gallops, or rubs. RESPIRATORY: Breath sounds equal bilaterally. No accessory muscle use.Bibasilar diminished breath sound. GASTROINTESTINAL: Abdomen soft, non-tender, nondistended. MUSCULOSKELETAL: No cyanosis. Lower ext 1+ edema. BACK: Nontender without obvious deformity. No CVA tenderness. Results - Labs CBC & Chem 7: 02/03/18 03:27 02/03/18 03:27 Laboratory Results - last 24 hr 02/02/18 02/02/18 02/02/18 16:31 16:55 16:55 WBC 9.9 RBC 3.73 L Hgb 11.5 L Hct 33.2 L MCV 88.9 MCH 30.9 MCHC 34.7 RDW 14.0 Plt Count 245 D MPV 8.0 Neut % (Auto) 62.0 Lymph % (Auto) 22.4 [place] % (Auto) 11.3 H Eos % (Auto) 3.8 Baso % (Auto) 0.5 Neut # (Auto) 6.1 Lymph # (Auto) 2.2 [place] # (Auto) 1.1 H Eos # (Auto) 0.4 Baso # (Auto) 0.1 WBC Differential . Differential Comment Auto diff final PT INR Puncture Site Right radial Patient Temperature 98.6 O2 Saturation 94 ABG pH 7.42 ABG pCO2 43 H ABG pO2 78 ABG HCO3 28 H ABG O2 Content 15.2 ABG Base Excess 3.4 H ABG Methemoglobin 0.5 Hal Test Present Hemoglobin 11.5 L Carboxyhemoglobin 1.3 Inspired O2 21 Critical Value No Sodium Potassium Chloride Carbon Dioxide Anion Gap BUN Creatinine Estimated GFR Random Glucose Hemoglobin A1c Calcium Magnesium Total Bilirubin AST ALT Alkaline Phosphatase Total Creatine Kinase Troponin I B-Natriuretic Peptide 243 H Total Protein Albumin 02/02/18 02/03/18 02/03/18 16:55 03:27 03:27 WBC 9.4 RBC 3.71 L Hgb 11.4 L Hct 32.9 L MCV 88.6 MCH 30.6 MCHC 34.6 RDW 13.9 Plt Count 248 MPV 7.8 Neut % (Auto) 66.3 Lymph % (Auto) 19.1 [place] % (Auto) 10.8 H Eos % (Auto) 3.2 Baso % (Auto) 0.6 Neut # (Auto) 6.2 Lymph # (Auto) 1.8 [place] # (Auto) 1.0 H Eos # (Auto) 0.3 Baso # (Auto) 0.1 WBC Differential . Differential Comment Auto diff final PT INR Puncture Site Patient Temperature O2 Saturation ABG pH ABG pCO2 ABG pO2 ABG HCO3 ABG O2 Content ABG Base Excess ABG Methemoglobin Hal Test Hemoglobin Carboxyhemoglobin Inspired O2 Critical Value Sodium 139 140 Potassium 3.2 L 3.4 L Chloride 100 99 Carbon Dioxide 28.3 31.3 Anion Gap 11 10 BUN 9 8 Creatinine 0.75 0.64 Estimated GFR 75 L Greater than 89 Random Glucose 131 H 89 Hemoglobin A1c Calcium 8.1 L 8.0 L Magnesium 1.7 Total Bilirubin 0.4 AST 19 ALT 24 Alkaline Phosphatase 99 Total Creatine Kinase 26 Troponin I Less than 0.02 L B-Natriuretic Peptide Total Protein 6.0 L Albumin 2.2 L 02/03/18 02/03/18 02/03/18 03:27 03:27 09:12 WBC RBC Hgb Hct MCV MCH MCHC RDW Plt Count MPV Neut % (Auto) Lymph % (Auto) [place] % (Auto) Eos % (Auto) Baso % (Auto) Neut # (Auto) Lymph # (Auto) [place] # (Auto) Eos # (Auto) Baso # (Auto) WBC Differential Differential Comment PT 11.4 INR 1.1 Puncture Site Patient Temperature O2 Saturation ABG pH ABG pCO2 ABG pO2 ABG HCO3 ABG O2 Content ABG Base Excess ABG Methemoglobin Hal Test Hemoglobin Carboxyhemoglobin Inspired O2 Critical Value Sodium Potassium Chloride Carbon Dioxide Anion Gap BUN Creatinine Estimated GFR Random Glucose Hemoglobin A1c 6.4 H Calcium Magnesium Total Bilirubin AST ALT Alkaline Phosphatase Total Creatine Kinase Troponin I B-Natriuretic Peptide 246 H Total Protein Albumin Microbiology 02/02/18 18:55 Clean Catch Urine Urine Culture - Preliminary Immature growth - reincubate 02/02/18 18:50 Blood - Peripheral Aerobic Blood Culture - Preliminary No growth in 1 day 02/02/18 18:50 Blood - Peripheral Anaerobic Blood Culture - Preliminary No growth in 1 day 02/02/18 18:35 Blood - Peripheral Aerobic Blood Culture - Preliminary No growth in 1 day 02/02/18 18:35 Blood - Peripheral Anaerobic Blood Culture - Preliminary No growth in 1 day - Imaging Impressions Chest CTA 02/02/18 00:00 CONCLUSION: 1. The study is negative for pulmonary embolism. 2. Large bilateral pleural effusions with adjacent compressive atelectasis and subsegmental consolidation. 3. 1.5 cm masslike lesion in the lateral right breast is nonspecific. Recommend correlation with mammogram. Chest X-Ray 02/02/18 16:26 CONCLUSION: Probable CHF. Venous Doppler Study 02/03/18 00:00 CONCLUSION: No venous thrombosis is identified within the left upper extremity. Assessment and Plan - Assessment (1) Hypokalemia Code(s): E87.6 - Hypokalemia Status: Acute (2) Atrial fibrillation Code(s): I48.91 - Unspecified atrial fibrillation Status: Chronic (3) Pleural effusion Code(s): J90 - Pleural effusion, not elsewhere classified Status: Acute (4) ESBL (extended spectrum beta-lactamase) producing bacteria infection Code(s): A49.9 - Bacterial infection, unspecified; Z16.12 - Extended spectrum beta lactamase (ESBL) resistance Status: Acute - Plan This is a 77 y/o CF with PMHx of A. Fib, HTN, and recent hospitalization (01/27-) for ESBL UTI and Bacteremia on Ertapenem (Invanz) x2wks to finish on 02/05 who now presents with progressively worsening SOB x2 days, per CXR found to have bilateral effusions concerning for CHF, nml echo on 01/28. Dyspnea -Currently on room air. -We will continue diuretics. Acute exacerbation of diastolic CHF Chronic diastolic CHF Atrial fibrillation -Appreciate cardiology input. -Continue Diltiazem and Metoprolol for rate control -Upon discharge we will use Torsemide 20mg Qday. -Patient is being considered for watchman device. She has a history of recent ICH -[id number] score is 5. Bilateral pleural effusion -Likely due to CHF. -Patient and family decided to go home today. -Will recommend CXR in 3-5 days. If pleural effusion is not improved, consider elective thoracentesis. Recent history of ESBL E. coli UTI, bacteremia -Continue home health with Ertapenem infusion until 02/10/2018. Full code. Ambulation. Discharge patient to home Condition on discharge: Improved Cardiac Diet as tolerated Ad Page activity Rx written: Diltiazem 120mg Qday Torsemide 20mg Qday Follow-up with primary care physician and Cardiology within 1-2 weeks.
--- NOTE | 2018-02-03 16:00 | P.DCO ---
- Physical Therapy Order: Evaluate and treat, Improve ambulation, Strength and gait training - Occupational Therapy Order: Evaluate and treat, Improve ADL, Gross motor coordination, Fine motor coordination - Home Health Nursing Order: Medical education, Signs/symptoms of disease process, Medication education-adverse effect, Nursing assessment with vital signs, IV medication administration - Case Management Consult No - Certification I have seen patient Carmen Childers on 02/03/18. My clinical findings support the need for the requested home health care services because: Limited mobility due to disease progression, Patient has SOB, Limited ability to care for self, Need for psychosocial assistance, Impaired cognition/judgement , High risk of falls, Infection with risk of complications, Injectable medication education/administration I certify that my clinical findings support that this patient is homebound because: Unsteady gait/balance, Unsafe to leave home unassisted, Need for psychosocial assistance, Non-ambulatory: confined to bed or chair, Unable to use public transportation
[2018-02-03 16:33] VITALS: BP 158/106; PULSE 108; TEMP 99; O2SAT 95
--- NOTE | 2018-02-03 20:04 | P.CONCA ---
History of Present Illness Service: Cardiology Consult date: 02/02/17 Reason for Consult: SOB, CHF, Afib Primary Care Provider: Onofre Gimenez MD Family Provider: Onofre Gimenez MD Chief Complaint: SOB History of Present Illness: Mrs. Childers is a very pleasant 77 year old female with a past medical history of a subdural hemorrhage (treated with observation given the relative small size ) after sustaining a mechanical fall, HTN, HLD,DM2, breast cancer who presented on 01/27 with generalized weakness and dizziness. She was hospitalized until for ESBL UTI and Bacteremia. She was found to be in afib with RVR which was treated with po Metoprolol. A shared decision between the patient and I was made to not start OAC in the setting of her presyncopal episodes and recent subdural hemorrhage. She was discharged to complete a 2 week course of abx. She had an echo showed moderate TR, normal EF. Since her d/c, the patient reports she has been more short of breath. She was found to have a CXRAY consistent with pulmonary edema and bilateral pleural effusions. She has been diagnosed with Breast cancer but has thus far elected to avoid further treatment /workup. Currently, she feels fatigued. No CP. She remains in afib with HR less than 110 Review of Systems All other systems reviewed negative except as stated in HPI PMFSH - History History Provided By: Patient - Medical History Medical History: Medical History (Last Updated 02/02/18 @ 18:16 by Radha Emerson MD) Anxiety Atrial fibrillation Breast cancer HX: breast cancer History of anxiety Hypercholesteremia Hypertension Ulcer - Surgical History Surgical History: Surgical History (Last Reviewed 02/02/18 @ 18:16 by Radha Emerson MD) H/O tubal ligation History of History of biopsy Hx of appendectomy Hx of cholecystectomy - Family History Family History: Family History (Last Reviewed 02/02/18 @ 18:16 by Radha Emerson MD) Other Family history of diabetes mellitus - Tobacco History Second Hand Smoke Exposure: No Smoking Status: Never smoker - Alcohol History How Often Do You Have a Drink Containing Alcohol: Never - Substance Use History Substance History: No History of Abuse - Travel History Recent Travel in the [place] Within the Last 8 Weeks: No Recent Travel Out of the Country Within the Last 8 Weeks: No - Immunization History Tetanus Immunization: Unsure Medications and Allergies Active Medications: Active Medications Acetaminophen (Tylenol) 650 mg PO Q4H PRN PRN Reason: Temp > 100.4 Hydrocodone Bitart/Acetaminophen ([place] 5/325) 1 tab PO Q4H PRN PRN Reason: Pain 1-10 Alprazolam (Xanax) 0.5 mg PO TID PRN PRN Reason: Anxiety Ascorbic Acid (Vitamin C) 500 mg PO DAILY [facility] Last Admin: 02/03/18 08:21 Dose: 500 mg Bisacodyl (Dulcolax Supp) 10 mg RECTAL DAILY PRN PRN Reason: SEVERE CONSITIPATION Buspirone HCl (Buspar) 7.5 mg PO BID [facility] Last Admin: 02/03/18 08:20 Dose: 7.5 mg Citalopram Hydrobromide (Celexa) 10 mg PO DAILY [facility] Last Admin: 02/03/18 14:06 Dose: 10 mg Cyanocobalamin (Vitamin B12) 1,000 mcg PO DAILY [facility] Last Admin: 02/03/18 08:21 Dose: 1,000 mcg Furosemide (Lasix Inj) 40 mg IV.PUSH BID@0900,1800 [facility] Last Admin: 02/03/18 08:22 Dose: 40 mg Ertapenem 1,000 mg/ Sodium (Chloride) 100 mls @ 200 mls/hr IV.SIG Q24H [facility] Metoprolol Tartrate (Lopressor) 75 mg PO BID [facility] Last Admin: 02/03/18 08:20 Dose: 75 mg Miscellaneous (Pill Splitter) 1 each OTHER UNSCH [facility] Multivitamins (Theragran) 1 tab PO DAILY [facility] Last Admin: 02/03/18 08:21 Dose: 1 tab Ondansetron HCl (Zofran Inj) 4 mg IV.PUSH Q6H PRN PRN Reason: NAUSEA OR VOMITING Pantoprazole Sodium (Protonix) 40 mg PO DAILY [facility] Last Admin: 02/03/18 08:21 Dose: 40 mg Potassium Chloride (K-Dur) 20 meq PO BID [facility] Last Admin: 02/03/18 08:21 Dose: 20 meq Pravastatin Sodium (Pravachol) 40 mg PO DAILY [facility] Last Admin: 02/03/18 08:21 Dose: 40 mg Sennosides (Senokot) 17.2 mg PO Q12H PRN PRN Reason: Moderate Constipation Sucralfate (Carafate) 1 gm PO QID [facility] Last Admin: 02/03/18 14:06 Dose: 1 gm Triamterene/HCTZ (Maxzide 37.5 Mg-25 Mg) 1 tab PO DAILY [facility] Last Admin: 02/03/18 08:20 Dose: 1 tab Allergies Allergy/AdvReac Type Severity Reaction Status Date / Time Sulfa (Sulfonamide Allergy Intermediate RASH Verified 01/27/18 20:30 Antibiotics) codeine Allergy Swelling Verified 01/27/18 20:30 of Lip/Tongue/Throat Home Medications Medication Instructions Recorded Confirmed Type alprazolam 0.5 mg PO TID PRN 11/15/17 02/02/18 History hydrocodone-acetaminophen 1 tab PO Q4-6H PRN 11/15/17 02/02/18 History lovastatin 40 mg PO DAILY 11/15/17 02/02/18 History pantoprazole 40 mg PO DAILY 11/15/17 02/02/18 History triamterene-hydrochlorothiazid 1 tab PO DAILY 11/15/17 02/02/18 History [id number]-FA-lutein 1 tab PO DAILY 12/17/17 02/02/18 History [Centrum Silver Women] ascorbic acid (vitamin C) [Vitamin 500 mg PO DAILY 01/05/18 02/02/18 History C] cyanocobalamin (vitamin B-12) 1,000 mcg PO DAILY 01/05/18 02/02/18 History [Vitamin B-12] buspirone 7.5 mg PO BID 01/27/18 02/02/18 History citalopram 10 mg PO DAILY 02/02/18 02/02/18 History Exam Vital signs: Vital Signs 02/02/18 23:13 02/03/18 03:32 02/03/18 08:00 Temperature 97.9 F 98.1 F 97.8 F Pulse Rate 90 89 94 H Respiratory Rate 16 18 16 Blood Pressure 130/69 146/73 H 163/86 H Pulse Oximetry 97 95 98 02/03/18 09:06 02/03/18 12:00 02/03/18 16:00 Temperature 97.8 F 99.0 F Pulse Rate 96 H 99 H 108 H Respiratory Rate 16 16 Blood Pressure 144/87 H 158/106 H Pulse Oximetry 93 L 95 Intake & Output 02/03/18 02/03/18 02/04/18 06:59 18:59 06:59 Intake Total 240 / 240 200 / 200 Balance 240 / 240 200 / 200 Intake: IV 0 / 0 200 / 200 INVanz Inj 1,000 MG In NS Inj 0 / 0 200 / 200 100 ML @ 200 mls/hr IV.SIG Q24H [facility] Rx#:[id number] Oral 240 / 240 Other: # Voids 2 Date of Last Bowel Movement 02/03/18 # Bowel Movements 2 - Constitutional mild distress Comments: frail appearance - Routine HEENT Exam Head: Present: normocephalic Eye: Present: EOMI - Routine Neck Exam Present: supple. Absent: JVD - Routine Chest/Breast/Axilla Exam Chest wall: Absent: tenderness Comments: LUE slightly swollen - Routine Respiratory Exam Present: crackles (at the bases) - Routine Cardiovascular Exam Present: S1, S2, irregular rhythm - Routine Abdominal Exam Present: soft, normoactive bowel sounds. Absent: tenderness - Routine Extremities Exam Present: edema (1+) - Routine Neurological Exam Present: alert, oriented X3 - Routine Psychiatric Exam Present: normal affect Results 02/03/18 03:27 02/03/18 03:27 Cardiac Enzymes 02/02/18 02/02/18 02/03/18 Range/Units 16:55 16:55 03:27 AST 19 (15-37) U/L Troponin I Less than 0.02 L (0.02-0.05) ng/mL B-Natriuretic Peptide 243 H (0-100) pg/mL 02/03/18 Range/Units 03:27 AST (15-37) U/L Troponin I (0.02-0.05) ng/mL B-Natriuretic Peptide 246 H (0-100) pg/mL Coagulation 02/02/18 02/03/18 02/03/18 Range/Units 16:55 03:27 09:12 PT 11.4 (9.8-11.6) sec B-Natriuretic Peptide 243 H 246 H (0-100) pg/mL CBC 02/02/18 02/03/18 Range/Units 16:55 03:27 WBC 9.9 9.4 (4.0-11.0) th/mm3 RBC 3.73 L 3.71 L (4.00-5.30) mil/mm3 Hgb 11.5 L 11.4 L (11.6-15.3) gm/dL Hct 33.2 L 32.9 L (35.0-46.0) % Plt Count 245 D 248 (150-450) th/mm3 Neut # (Auto) 6.1 6.2 (1.8-7.7) th/mm3 Lymph # (Auto) 2.2 1.8 (1.0-4.8) th/mm3 [place] # (Auto) 1.1 H 1.0 H (0.0-0.9) th/mm3 Eos # (Auto) 0.4 0.3 (0.0-0.4) th/mm3 Baso # (Auto) 0.1 0.1 (0.0-0.2) th/mm3 Comprehensive Metabolic Panel 02/02/18 02/03/18 Range/Units 16:55 03:27 Sodium 139 140 (136-145) meq/L Potassium 3.2 L 3.4 L (3.5-5.1) meq/L Chloride 100 99 (98-107) meq/L Carbon Dioxide 28.3 31.3 (21.0-32.0) meq/L BUN 9 8 (7-18) mg/dL Creatinine 0.75 0.64 (0.50-1.00) mg/dL Calcium 8.1 L 8.0 L (8.5-10.1) mg/dL AST 19 (15-37) U/L ALT 24 (10-53) U/L Alkaline Phosphatase 99 (45-117) U/L Total Protein 6.0 L (6.4-8.2) g/dL Albumin 2.2 L (3.4-5.0) g/dL Intake and Output 02/03/18 02/03/18 02/03/18 06:59 14:59 22:59 Intake Total 240 / 240 100 / 100 100 / 100 Balance 240 / 240 100 / 100 100 / 100 Intake: IV 0 / 0 100 / 100 100 / 100 INVanz Inj 1,000 MG In NS Inj 0 / 0 100 / 100 100 / 100 100 ML @ 200 mls/hr IV.SIG Q24H [facility] Rx#:[id number] Oral 240 / 240 Other: # Voids 2 Date of Last Bowel Movement 02/03/18 # Bowel Movements 2 - Imaging and Cardiology Imaging: Impressions Chest CTA 02/02/18 00:00 CONCLUSION: 1. The study is negative for pulmonary embolism. 2. Large bilateral pleural effusions with adjacent compressive atelectasis and subsegmental consolidation. 3. 1.5 cm masslike lesion in the lateral right breast is nonspecific. Recommend correlation with mammogram. Chest X-Ray 02/02/18 16:26 CONCLUSION: Probable CHF. Venous Doppler Study 02/03/18 00:00 CONCLUSION: No venous thrombosis is identified within the left upper extremity. Assessment and Plan - Plan 77 year old with recent UTI, hx of afib, prior subdural hemorrhage,breast cancer who presents after worsening shortness of breath. She was found to have findings consistent with CHF. Afib- not in RVR ([id number] (age, female, HTN, addition of DM2)-6.0 % stroke rate, HASBLED score of 3-5.8% of major bleed-Her acute decompensation could have occurred in the setting of an RVR episode at home I would continue to uptitrate her AV angela agents. Will add Diltiazem for synergistic combo with metoprolol. As per prior discussion given her presyncopal episodes at home, plan to hold on OAC for now. Possible watchman implant in the future. Acute Diastolic HF- plan to continue better HR control. Will continue Lasix 40mg IV BID, will likely d/c home on diuretic. May benefit from thoracentesis. Will monitor her diuretic response. UTI-continue abx.
[2018-02-03] MEDS ORDERED: dilTIAZem 30 MG Tablet PO SCH (21:00)
--- NOTE | 2018-02-04 07:55 | US ---
EXAM DATE: 02/04/2018 12:00 AM EDT AGE/SEX: 77 years / Female INDICATIONS: Evaluate for right pleural effusion. CLINICAL DATA: This is the patient's initial encounter. Patient reports that signs and symptoms have been present for 1 day and indicates a pain score of 0/10. MEDICAL/SURGICAL HISTORY: . Afib. Breast cancer. Hypercholesterol. HTN. Ulcer. Tubal ligat ion. section. Appendectomy. Bilateral breast biopsy. Cholecystectomy. COMPARISON: C, CTA PULMONARY W CONTRAST W 3D, 02/02/2018. . MEASUREMENTS: Skin To Parietal Pleura:__2.4 cm cm Skin To Max Safe Depth:__3.8 cm cm Estimated Fluid Volume:__375 cc Fluid Composition:__simple FINDINGS: Approximately 375 cc pleural effusion on the right. CONCLUSION: 1. Right pleural effusion as above. Electronically signed by: Jerman Linda MD 02/04/2018 7:53 AM EDT
== END 2018-02-03 16:55 | disposition home health service (06) ==
LOC: NEDA 15:29 → NEPC 15:29 → NEPGCP 20:45
PROVIDERS: ADMIT Hospitalist; ATTEND Hospitalist